=== PATIENT | female | born 1960 | race Caucasian/White ===

== ENCOUNTER → 2017-07-03 13:50 | Outpatient (CLI) | payer OTHER, SELFPAY | PROVIDERS: Family Provider Family Medicine; PCP Family Medicine; Visit Provider Family Medicine | DX: R10.2 Pelvic and perineal pain (principal) | CPT/HCPCS: 87086; 87088 ==

== ENCOUNTER → 2017-08-07 11:23 | Outpatient (CLI) | payer OTHER, SELFPAY ==
[2017-08-07 15:31] LABS: Absolute Neutrophil Count 4.2 X10^3/uL (2.0-7.7); Basophil# 0.03 X10^3/uL; Basophil% 0.4 % (0-1); Eosinophil# 0.19 X10^3/uL; Eosinophils% 2.7 % (0-5); Hematocrit 42.9 % (37-47); Hemoglobin 13.7 g/dl (12.0-15.0); Lymphocyte % 25.9 % (19-41); Mean Corp Hgb Conc 31.9 g/gl (32-36); Mean Corpuscular Hgb 30.7 pg (27.0-32.0); Mean Corpuscular Volume 96.2 fL (81-99); Mean Platelet Vol. 10.4 fl (6.2-12.0); Monocyte# 0.68 X10^3/uL; Monocyte% 9.8 % (0-10); Neutrophil # 4.24 X10^3/uL (2.7-7.7); Neutrophil % 60.9 % (47-70); Platelet Count 228 K/mm3 (150-450); RBC Distribution Width CV 13.4 % (11.6-14.6); RBC Distribution Width SD 45.7 fl (35.1-43.9); Red Blood Count 4.46 M/mm3 (4.2-5.4)
[2017-08-07 15:37] LABS: POSITIVE COUNT NO; POSITIVE DIFFERENTIAL NO; POSITIVE MORPHOLOGY NO
[2017-08-07 15:52] LABS: Microalbumin,Random Urine 7.4 mg/L (NO RANGE EST.); Microalbumin:Creatinine Ratio 7.3 mg/g CRE (<30 mg/g CRE)
[2017-08-07 16:01] LABS: AST(SGOT) 52 U/L (15-37); Alanine Aminotransfer ALT/SGPT 100 U/L (13-56); Albumin, Serum 3.8 g/dL (3.2-5.0); Alkaline Phosphatase 93 U/L (45-117); Anion Gap 9 (5-15); BUN 14 mg/dL (7-18); BUN/Creat Ratio 20.2 RATIO (10-20); Chloride 103 mmol/L (98-107); Cholesterol 205 mg/dL (200); Creatinine, Serum 0.69 mg/dL (0.55-1.02); EST Glomerular Filtration Rate 93 mL/min (>60); Est Glom Filt Rate - Afr Amer 112 mL/min (>60); Globulin 3.9 g/dL (2.2-4.2); Glucose 111 mg/dL (74-106); High Density Lipoprotein 41 mg/dL; Potassium 4.2 mmol/L (3.5-5.1); Protein, Total 7.7 g/dL (6.4-8.2); Sodium Level 141 mmol/L (136-145); T4 Free Direct 0.92 ng/dL (0.76-1.46); Thyroid Stim Hormone (TSH) 1.07 uIU/mL (0.358-3.74); Triglycerides 225 mg/dL; Very Low Density Lipoprotein 45 mg/dL (5-40)
== END ==
PROVIDERS: Family Provider Family Medicine; PCP Family Medicine; Visit Provider Family Medicine
DX: E03.9 Hypothyroidism, unspecified (principal); E78.5 Hyperlipidemia, unspecified; E11.9 Type 2 diabetes mellitus without complications; I10 Essential (primary) hypertension; Z51.81 Encounter for therapeutic drug level monitoring; Z79.899 Other long term (current) drug therapy
CPT/HCPCS: 36415; 80053; 80061; 82043; 82570; 84439; 84443; 84480; 85025

== ENCOUNTER → 2017-10-05 06:56 | Outpatient (CLI) | payer OTHER, SELFPAY ==
--- NOTE | 2017-10-05 06:59 | BI_ITS ---
MAMMOGRAPHY - BILATERAL SCREENING REASON FOR EXAM: Female, 57 years old. Routine annual screening examination. PERTINENT HISTORY: Aunt with breast cancer. TECHNIQUE: Digital bilateral breast nikki (3D mammographic acquisition) in the CC and MLO projections. 2-D mediolateral oblique (MLO) and craniocaudad (CC) views of both breasts were obtained. CAD: Full Field Digital Mammography with Computer Added Detection was performed. COMPARISON: Comparison is made with prior study dated August 08, 2016 and May 12, 2015. FINDINGS: Breast Composition: The breasts are almost entirely fatty. There are no dominant masses or suspicious calcifications. No other significant abnormalities are identified. There has been no significant change since the prior study. BI/SCREENING MAMM (CAD), BILAT IMPRESSION: Stable bilateral screening mammogram. Yearly follow-up mammogram recommended. (A) ASSESSMENT CATEGORY: BIRADS Category 1: Negative. A letter regarding these results will be sent to the patient by the facility within 30 days. Approximately 10% of breast cancers are not detected by mammography. A normal mammogram should not delay biopsy of a clinically suspicious abnormality. [id number] Electronically Signed: Kt Murphy MD at 9:49 EDT Tel [phone], Service support ,
== END ==
PROVIDERS: Family Provider Family Medicine; PCP Family Medicine; Visit Provider Obstetrics & Gynecology Gynecology
DX: Z12.31 Encounter for screening mammogram for malignant neoplasm of breast (principal); Z80.3 Family history of malignant neoplasm of breast
CPT/HCPCS: 77063; 77067

== ENCOUNTER → 2017-12-27 13:30 | Outpatient (CLI) | payer OTHER, SELFPAY ==
--- NOTE | 2017-12-27 13:34 | US_ITS ---
STUDY: ULTRASOUND BREAST - RIGHT REASON FOR EXAM: Female, 57 years old. Palpable lump TECHNIQUE: Axial and longitudinal images of the RIGHT breast were performed with a high resolution ultrasound transducer. COMPARISON: None. FINDINGS: RIGHT Breast: Ultrasound evaluation of the right breast, in the area of concern, shows only normal dense fibroglandular tissue. There is no suspicious shadowing solid lesion, architectural distortion, or shadowing calcification. No demonstrated skin thickening. US/Breast Limited Unilateral IMPRESSION: No suspicious sonographic findings ASSESSMENT CATEGORY: Six-month follow-up recommended to assess stability. BIRADS Category 3 Electronically Signed: David Loya MD at 15:06 EDT , Service support ,
--- NOTE | 2017-12-27 13:34 | BI_ITS ---
STUDY: DIAGNOSTIC RIGHT MAMMOGRAM REASON FOR EXAM: Female, 57 years old. Right upper quadrant breast thickening, palpable lump TECHNIQUE: 2D MLO and cc views along with 3-D nikki synthesis views COMPARISON: 10/05/2017 FINDINGS: No mammographic evidence of abnormality. There is no suspicious solid nodule, architectural distortion or clustered calcifications. Nonetheless, because the patient complains of a palpable lump and skin thickening, ultrasound evaluation of these areas recommended. BI/DIAG MAMM W/CAD, UNILAT IMPRESSION: Further evaluation of the right breast with ultrasound BIRADS Category 0 Electronically Signed: David Loya MD at 15:04 EDT , Service support ,
== END ==
PROVIDERS: Family Provider Family Medicine; PCP Family Medicine
DX: N63.11 Unspecified lump in the right breast, upper outer quadrant (principal)
CPT/HCPCS: 76642; 77061; 77065; G0279

== ENCOUNTER 2018-01-02 09:56 | Inpatient (IN) | payer OTHER, SELFPAY ==
[2018-01-02 09:57] VITALS: BP 147/98; PULSE 80; RESP 16; TEMP 36.5; O2SAT 98; BMI 31.4
--- NOTE | 2018-01-02 10:12 | NURSING ---
NO LW OR POA
--- NOTE | 2018-01-02 10:24 | CT_ITS ---
STUDY: CT ABDOMEN AND PELVIS WITH CONTRAST REASON FOR EXAM: Female, 57 years old. The patient presented with a history of bright red watery stools. RADIATION DOSAGE (If Supplied By Facility): CTDIvol = ( 16.84 ) mGy, DLP = ( 1201.56 ) mGycm TECHNIQUE: Transaxial images were obtained from the dome of the diaphragm to the symphysis pubis with oral contrast. 100 ml of Isovue 300 contrast was administered. Sagittal and coronal images were reconstructed. Individualized dose optimization techniques were used for this CT. COMPARISON: Comparison is made with prior study dated September 14, 2015. FINDINGS: The visualized lung bases are unremarkable. The visualized portions of the heart are within normal limits. Normal liver. There are surgical clips in the gallbladder fossa consistent with a prior cholecystectomy. Normal spleen. Normal pancreas. Normal bilateral adrenal glands. Normal right kidney. Normal left kidney. There is a small hiatal hernia. Normal small intestine. There is evidence of circumferential wall thickening of the left hemicolon from the splenic flexure down to the mid sigmoid colon. This is suggestive of ischemic colitis. Increased stranding in the surrounding peritoneal fat. Moderate amount of fecal material is seen in the right hemicolon. The patient is status post appendectomy. There is diffuse atherosclerotic calcification of the abdominal aorta, without a demonstrated aneurysm. Normal inferior vena cava. Normal retroperitoneum. Normal urinary bladder. There is absence of the uterus consistent with a prior hysterectomy. There is a small umbilical hernia containing fat. There are degenerative changes of the visualized lumbar spine. Findings suggestive of a hemangioma of the L1 vertebrae. CT/Abdomen/Pelvis WITH Contrast IMPRESSION: Findings suggestive of ischemic colitis involving the left hemicolon as described. Electronically Signed: Kt Murphy MD at 12:52 EDT Tel [phone], Service support ,
[2018-01-02] MEDS: 0.9% Normal Saline 1,000 ML 125 ML IV (10:33)
[2018-01-02] MEDS: Morphine 4 MG/ML Syringe IV (10:42)
[2018-01-02] MEDS: Ondansetron 4 MG/2 ML Vial IV (10:43)
[2018-01-02 10:51] LABS: Bacteria 0 SEEN /hpf (None Seen); Mucous, Urine 0 SEEN /hpf (<or=2+); Red Blood Cells-Urine 0 SEEN /hpf (0-5); White Blood Cells 0 SEEN /hpf (0-5)
[2018-01-02 10:56] LABS: Basophil% 0.2 % (0-1); Eosinophils% 1.3 % (0-5); Hematocrit 44.7 % (37-47); Hemoglobin 14.7 g/dl (12.0-15.0); Lymphocyte % 24.3 % (19-41); Mean Corp Hgb Conc 32.9 g/gl (32-36); Mean Corpuscular Hgb 30.7 pg (27.0-32.0); Mean Corpuscular Volume 93.3 fL (81-99); Mean Platelet Vol. 9.6 fl (6.2-12.0); Monocyte% 8.2 % (0-10); Neutrophil % 65.9 % (47-70); Platelet Count 271 K/mm3 (150-450); RBC Distribution Width CV 13.2 % (11.6-14.6); Red Blood Count 4.79 M/mm3 (4.2-5.4); White Blood Count 9.2 K/mm3 (4.4-11.0)
[2018-01-02 10:56] LABS: Color, Urine Yellow (Yellow); Glucose, Dipstick Normal (Normal); Ketone-Dipstick Negative (Negative); Leukocyte Esterase-Dipstick Negative /ul (Negative); Nitrite-Dipstick Negative (Negative); Occult Blood-Urine 10 /ul (Negative); Protein-Dipstick Negative (Negative); Urine Bilirubin Dipstick Negative (Negative); Urine Clarity Clear (Clear); Urine Urobilinogen Normal (Normal); Urine pH 6.5 (5.0 - 8.0)
[2018-01-02 10:57] LABS: Absolute Lymphocyte Count 2.23 X10^3/ul (0.83-4.51); Absolute Neutrophil Count 6.1 X10^3/uL (2.0-7.7); Basophil# 0.02 X10^3/uL; Eosinophil# 0.12 X10^3/uL; Lymphocyte # 2.23 X10^3/ul (4.0); Monocyte# 0.75 X10^3/uL; Neutrophil # 6.06 X10^3/uL (2.7-7.7)
[2018-01-02 10:59] LABS: POSITIVE COUNT NO; POSITIVE DIFFERENTIAL NO; POSITIVE MORPHOLOGY NO
[2018-01-02 11:08] LABS: Squamous Epithelial Cells - UA 0-5 SEEN /hpf (5-10)
[2018-01-02 11:08] LABS: Anion Gap 6 (5-15); BUN 13 mg/dL (7-18); BUN/Creat Ratio 16.3 RATIO (10-20); Calcium,Total 9.5 mg/dL (8.5-10.1); Chloride 106 mmol/L (98-107); EST Glomerular Filtration Rate 79 mL/min (>60); Est Glom Filt Rate - Afr Amer 95 mL/min (>60); Estimated Creatinine Clearance 78.27 ml/min; Glucose 89 mg/dL (74-106); Sodium Level 141 mmol/L (136-145)
[2018-01-02 11:24] LABS: Lactic Acid 1.1 mmol/L (0.4-2.0)
[2018-01-02 14:30] VITALS: BP 123/67; PULSE 67; RESP 16; O2SAT 98
--- NOTE | 2018-01-02 15:11 | ED.VISSUMM ---
- ER Visit Summary Date of Service: 01/02/18 Chief Complaint: [Abdominal pain] History of Present Illness: The patient is a 57 F [presents the emergency department complaint of abdominal pain that started yesterday. Patient initially started with diarrhea that was severe. Patient had the diarrhea turned to blood in her last 3 bowel movements have been mostly blood. Patient describes intermittent abdominal discomfort to the left lower abdomen. Patient states she had severe pain at certain points yesterday lasting up to 5 minutes that cause her to become diaphoretic. Patient denies any fever or recent illness. Patient has a history of diabetes, hypertension, high cholesterol. Past surgical history includes appendectomy, cholecystectomy, and hysterectomy.] Physical Examination: [HEENT-PERRLA, EOMI. Cranial nerves II through XII grossly intact. TMs clear. Mucous membranes moist. No adenopathy. Cardiovascular-regular rate and rhythm without murmur or ectopy Lungs-clear to auscultation, chest wall stable without crepitus or subcu emphysema Abdomen-normoactive bowel sounds, soft patient has tenderness over the left lower quadrant with some guarding. There is no rebound, rigidity, or perineal signs. Extremities-intact ?4, normal range of motion, normal pulses, atraumatic] Test Results: [CBC with differential obtained showed white blood cell count of 9.2, hemoglobin 14.7, hematocrit 45, platelets 271. Chemistries unremarkable. Urinalysis was normal. Lactate was 1.1. CT scan of the abdomen and pelvis with IV and p.o. contrast showed findings suggestive of ischemic colitis of the left hemicolon.] Emergency Department Course and Treatment: [Patient received normal saline while in the emergency department and was medicated for pain. Case was discussed with Dr. Christoph Iqbal who is on-call for general surgery who asked that we admit the medicine he will consult on the case.] Treatment Plan: [Admit] Disposition: [Admit] Impression: [Abdominal pain Ischemic colitis] This note was generated with [employer] dictation software. It may contain incorrect words, spelling, and punctuation that were not noted in review of the chart prior to signing ED Disposition - Plan for ED Patient: Chief Complaint: GI Bleed Referrals: Inez Jack DO [Primary Care Provider] -
[2018-01-02 15:17] VITALS: PULSE 82; RESP 16; O2SAT 100
--- NOTE | 2018-01-02 15:40 | PCM.HP.STD ---
Problem List (1) Acute colitis of the left hemicolon Status: Acute (2) Hypothyroidism Status: Chronic (3) Hyperlipidemia Status: Chronic (4) Type 2 diabetes mellitus Status: Chronic (5) Hypertension Status: Chronic History of Present Illness Date of Admission: 01/02/18 Chief Complaint: Abdominal pain. The patient is a 57 year old F with past medical history as mentioned above presented to the emergency room because of abdominal pain. Her illness started yesterday evening with left lower quadrant/left lumbar region abdominal pain, intermittent pain, sharp pain, 10 out of 10 in severity, not radiating, associated with blood per rectum, nausea and sweating and without aggravating or relieving factors. After couple of episodes of that intermittent pain, patient had couple of episodes of loose stool with bright red blood patient described as small to moderate amount of denis red blood. She denied fever or chills. She denied sick contacts or recent travel. She denied recent use of antibiotics. She denied chest pain or shortness of breath. She denies urinary symptoms. She denies cough or sputum production. In the emergency room, her vital signs are stable. Routine blood work was completely normal. Lactic acid was normal. Urinalysis showed no evidence of acute cystitis. CT scan abdomen and pelvis with contrast revealed findings suggestive of acute colitis of the left hemicolon, described as ischemic colitis. She is being admitted for acute colitis of the left hemicolon. Past Medical History Past Medical History (Chronic Problems): Chronic Problems Hypothyroidism (Chronic) Hyperlipidemia (Chronic) Type 2 diabetes mellitus (Chronic) Hypertension (Chronic) Allergies No Known Allergies Allergy (Verified 01/02/18 10:04) Home Medications: Ambulatory Orders Medication Instructions Recorded Ascorbic Acid [Vitamin C] 1,000 mg PO DAILY 01/02/18 Aspirin [Aspirin, Baby] 81 mg PO DAILY@0800 01/02/18 Cholecalciferol (Vitamin D3) 3,000 unit PO DAILY 01/02/18 [Vitamin D3] Fluticasone Propionate [24 Hour 15.8 ml NS DAILY 01/02/18 Allergy Relief] Garlic 1,000 mg PO DAILY 01/02/18 Lactobac No.30/Bifidobact No.4 1 each PO DAILY 01/02/18 [Ultimate Juliet Probiotic Dr Cp] Levothyroxine [Synthroid] 75 mcg PO DAILY 01/02/18 Liraglutide [Victoza] 1.8 mg SQ DAILY 01/02/18 Lisinopril [Zestril] 10 mg PO DAILY 01/02/18 Magnesium Oxide [Mag-Ox 400] 400 mg PO DAILY 01/02/18 Niacin [Niacin ER] 500 mg PO DAILY 01/02/18 Pravastatin [Pravachol] 80 mg PO DAILY 01/02/18 Vitamin B Complex/Folic Acid 0.4 mg PO DAILY 01/02/18 [Super B Maxi Complex Caplet] buPROPion XL [Wellbutrin Xl] 300 mg PO DAILY 01/02/18 Surgical History: appendectomy, cholecystectomy, hysterectomy, tonsillectomy Psychiatric History: No pertinent psych hx [employer] History: No pertinent [employer] history Lives: Spouse/ Significant Other Smoking Status: Never smoker Alcohol: None Drugs: None - *Family History Maternal History Items: No pertinent history Paternal History Items: No pertinent history Review of Systems Constitutional: Denies: Anorexia, Chills, Fever, Weakness Eyes: Denies: Blurred vision, Double vision, Drainage, Redness HEENT: Denies: Difficulty Hearing, Ear Pain, Eye Pain, Nasal Congestion, Sore Throat, Visual Changes Cardiovascular: Denies: Chest Pain, Chest Pressure, Chest Tightness, Orthopnea, Paroxysmal Noc. Dyspnea, Syncope Respiratory: Denies: Cough, Pleuritic Pain, Shortness of Breath, Sputum production, Wheezing Gastrointestinal: Reports: Abdominal Pain, Hematochezia, Nausea. Denies: Constipation, Diarrhea, Vomiting Genitourinary: Denies: Dysuria, Frequency, Hematuria Musculoskeletal: Denies: Arm Pain, Back Pain, Foot Pain Skin: Denies: Dryness, Rash Neurological: Denies: Balance problems, Double vision, Change in Speech, Slurred speech, Confusion, Incoordination, Numbness, Tingling Psychiatric: Denies: Anxiety, Depression Endocrine: Denies: Change in Body Habitus, Polydipsia VTE Information - Inpt Only VTE Present on Admission: No VTE Mechan Device Prophylaxis: None VTE Pharm Prophylaxis ordered?: No Patient Problems: Active and Suspected Problems Acute colitis of the left hemicolon (Acute) - Physical Exam General: Alert, Oriented x3, Cooperative, No apparent distress HEENT: Atraumatic, PERRLA, EOMI, Normocephalic Oral: Moist Mucosa, No Gingival or Mucosal Lesions/ Ulcerations Neck: Supple, No JVD, Negative Carotid Bruits, Trachea Midline, Thyroid Normal Size and Texture Lungs: Clear to auscultation, Normal air movement, No rhonchi, No wheeze, No rales Cardiovascular: Regular rate, Regular Rhythm, Normal S1, Normal S2, No murmurs, PMI Normal Abdomen: Bowel Sounds Present, Soft, Non Tender, Non-Distended, No Hepato-splenomegaly Extremities: No clubbing, No cyanosis, No edema Skin: No rashes, No breakdown Lymphatic: No Cervical, Supraclavicular, or Inguinal Adenopathy Neurological: Cranial nerves II-XII grossly intact, Motor Exam 5/5 strength throughout Psych/Mental Status: Normal Affect, Appropriate, Alert and oriented to time, place, person, mood and affect Vital Signs Temp Pulse Resp BP Pulse Ox 97.7 F L 82 16 123/67 H 100 01/02/18 09:57 01/02/18 15:17 01/02/18 15:17 01/02/18 14:30 01/02/18 15:17 Oxygen Delivery Method Room Air Weight: 207 lb Body Mass Index (BMI) 31.4 Laboratory Tests Past 24 Hrs 01/02/18 01/02/18 01/02/18 10:10 10:40 10:40 WBC 9.2 RBC 4.79 Hgb 14.7 Hct 44.7 MCV 93.3 MCH 30.7 MCHC 32.9 RDW 13.2 RDW Differential 44.0 H Plt Count 271 MPV 9.6 Immature Gran % (Auto) 0.100 Neut % (Auto) 65.9 Lymph % (Auto) 24.3 [place] % (Auto) 8.2 Eos % (Auto) 1.3 Baso % (Auto) 0.2 Absolute Neuts (auto) 6.1 Absolute Lymphs (auto) 2.23 Total Counted Not Reportable Sodium 141 Potassium 4.0 Chloride 106 Carbon Dioxide 29.0 Anion Gap 6 BUN 13 Creatinine 0.80 Estim Creat Clear Calc 78.27 Est GFR (MDRD) Af Amer 95 Est GFR (MDRD) Non-Af 79 BUN/Creatinine Ratio 16.3 Glucose 89 Lactic Acid Calcium 9.5 Urine Color Yellow Urine Clarity Clear Urine pH 6.5 Ur Specific [place] 1.010 Urine Protein Negative Urine Glucose (UA) Normal Urine Ketones Negative Urine Occult Blood 10 H Urine Nitrite Negative Urine Bilirubin Negative Urine Urobilinogen Normal Ur Leukocyte Esterase Negative Urine RBC 0 SEEN Urine WBC 0 SEEN Ur Squamous Epith Cells 0-5 SEEN Urine Bacteria 0 SEEN Urine Mucus 0 SEEN 01/02/18 10:40 WBC RBC Hgb Hct MCV MCH MCHC RDW RDW Differential Plt Count MPV Immature Gran % (Auto) Neut % (Auto) Lymph % (Auto) [place] % (Auto) Eos % (Auto) Baso % (Auto) Absolute Neuts (auto) Absolute Lymphs (auto) Total Counted Sodium Potassium Chloride Carbon Dioxide Anion Gap BUN Creatinine Estim Creat Clear Calc Est GFR (MDRD) Af Amer Est GFR (MDRD) Non-Af BUN/Creatinine Ratio Glucose Lactic Acid 1.1 Calcium Urine Color Urine Clarity Urine pH Ur Specific [place] Urine Protein Urine Glucose (UA) Urine Ketones Urine Occult Blood Urine Nitrite Urine Bilirubin Urine Urobilinogen Ur Leukocyte Esterase Urine RBC Urine WBC Ur Squamous Epith Cells Urine Bacteria Urine Mucus Clinical Impression(s) from Imaging Studies Abdomen/Pelvis CT 01/02/18 10:24 IMPRESSION: Findings suggestive of ischemic colitis involving the left hemicolon as described. Electronically Signed: Kt Murphy MD at 12:52 EDT Tel [phone], Service support , Assessment/Plan All Active Problems Acute colitis of the left hemicolon (Acute) This is a 57-year-old female patient presented to the ED because of left lower quadrant abdominal pain and bloody stool, found to have findings consistent with acute colitis of the left hemicolon and she is being admitted for treatment. #1 acute colitis of the left hemicolon: CT scan abdomen and pelvis reviewed, findings noted. It is described as ischemic colitis according to radiology report. Patient is afebrile, vital signs are stable. Routine blood work was unremarkable, no leukocytosis. Lactic acid is normal. The location of the colitis is corresponding to the watershed area which is vulnerable to ischemia. She has no history of peripheral vascular disease or coronary artery disease. Plan: Admit to MedSurg floor, keep on clear liquids, IV fluids, IV morphine as needed for pain, IV antiemetics, stool for C. difficile, stool for enteric pathogens, repeat CBC and CMP tomorrow morning, general surgery consult. #2 type 2 diabetes mellitus: ADA diet, Accu-Cheks, insulin sliding scale, continue daily Victoza. #3 hypertension: Blood pressure stable, continue lisinopril. #4 hypothyroidism: Continue levothyroxine. #5 hyperlipidemia: Continue statins. #6 DVT prophylaxis: Low suspicion, no prophylaxis indicated, ambulate. This note was generated with [employer]ome [id number] software. It may contain incorrect words, spelling, and punctuation that were not noted in checking the note before signing. Code Visit Inpatient E&M: 51692 Init Hosp L3
--- NOTE | 2018-01-02 15:44 | HP.PCM_ITS ---
Problem List (1) Acute colitis of the left hemicolon Status: Acute (2) Hypothyroidism Status: Chronic (3) Hyperlipidemia Status: Chronic (4) Type 2 diabetes mellitus Status: Chronic (5) Hypertension Status: Chronic History of Present Illness Date of Admission: 01/02/18 Chief Complaint: Abdominal pain. The patient is a 57 year old F with past medical history as mentioned above presented to the emergency room because of abdominal pain. Her illness started yesterday evening with left lower quadrant/left lumbar region abdominal pain, intermittent pain, sharp pain, 10 out of 10 in severity, not radiating, associated with blood per rectum, nausea and sweating and without aggravating or relieving factors. After couple of episodes of that intermittent pain, patient had couple of episodes of loose stool with bright red blood patient described as small to moderate amount of denis red blood. She denied fever or chills. She denied sick contacts or recent travel. She denied recent use of antibiotics. She denied chest pain or shortness of breath. She denies urinary symptoms. She denies cough or sputum production. In the emergency room, her vital signs are stable. Routine blood work was completely normal. Lactic acid was normal. Urinalysis showed no evidence of acute cystitis. CT scan abdomen and pelvis with contrast revealed findings suggestive of acute colitis of the left hemicolon, described as ischemic colitis. She is being admitted for acute colitis of the left hemicolon. Past Medical History Past Medical History (Chronic Problems): Chronic Problems Hypothyroidism (Chronic) Hyperlipidemia (Chronic) Type 2 diabetes mellitus (Chronic) Hypertension (Chronic) Allergies No Known Allergies Allergy (Verified 01/02/18 10:04) Home Medications: Ambulatory Orders Medication Instructions Recorded Ascorbic Acid [Vitamin C] 1,000 mg PO DAILY 01/02/18 Aspirin [Aspirin, Baby] 81 mg PO DAILY@0800 01/02/18 Cholecalciferol (Vitamin D3) 3,000 unit PO DAILY 01/02/18 [Vitamin D3] Fluticasone Propionate [24 Hour 15.8 ml NS DAILY 01/02/18 Allergy Relief] Garlic 1,000 mg PO DAILY 01/02/18 Lactobac No.30/Bifidobact No.4 1 each PO DAILY 01/02/18 [Ultimate Juliet Probiotic Dr Cp] Levothyroxine [Synthroid] 75 mcg PO DAILY 01/02/18 Liraglutide [Victoza] 1.8 mg SQ DAILY 01/02/18 Lisinopril [Zestril] 10 mg PO DAILY 01/02/18 Magnesium Oxide [Mag-Ox 400] 400 mg PO DAILY 01/02/18 Niacin [Niacin ER] 500 mg PO DAILY 01/02/18 Pravastatin [Pravachol] 80 mg PO DAILY 01/02/18 Vitamin B Complex/Folic Acid 0.4 mg PO DAILY 01/02/18 [Super B Maxi Complex Caplet] buPROPion XL [Wellbutrin Xl] 300 mg PO DAILY 01/02/18 Surgical History: appendectomy, cholecystectomy, hysterectomy, tonsillectomy Psychiatric History: No pertinent psych hx 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 Dyspnea, Syncope Respiratory: Denies: Cough, Pleuritic Pain, Shortness of Breath, Sputum production, Wheezing Gastrointestinal: Reports: Abdominal Pain, Hematochezia, Nausea. Denies: Constipation, Diarrhea, Vomiting Genitourinary: Denies: Dysuria, Frequency, Hematuria Musculoskeletal: Denies: Arm Pain, Back Pain, Foot Pain Skin: Denies: Dryness, Rash Neurological: Denies: Balance problems, Double vision, Change in Speech, Slurred speech, Confusion, Incoordination, Numbness, Tingling Psychiatric: Denies: Anxiety, Depression Endocrine: Denies: Change in Body Habitus, Polydipsia VTE Information - Inpt Only VTE Present on Admission: No VTE Mechan Device Prophylaxis: None VTE Pharm Prophylaxis ordered?: No Patient Problems: Active and Suspected Problems Acute colitis of the left hemicolon (Acute) - Physical Exam General: Alert, Oriented x3, Cooperative, No apparent distress HEENT: Atraumatic, PERRLA, EOMI, Normocephalic Oral: Moist Mucosa, No Gingival or Mucosal Lesions/ Ulcerations Neck: Supple, No JVD, Negative Carotid Bruits, Trachea Midline, Thyroid Normal Size and Texture Lungs: Clear to auscultation, Normal air movement, No rhonchi, No wheeze, No rales Cardiovascular: Regular rate, Regular Rhythm, Normal S1, Normal S2, No murmurs, PMI Normal Abdomen: Bowel Sounds Present, Soft, Non Tender, Non-Distended, No Hepato- splenomegaly Extremities: No clubbing, No cyanosis, No edema Skin: No rashes, No breakdown Lymphatic: No Cervical, Supraclavicular, or Inguinal Adenopathy Neurological: Cranial nerves II-XII grossly intact, Motor Exam 5/5 strength throughout Psych/Mental Status: Normal Affect, Appropriate, Alert and oriented to time, place, person, mood and affect Vital Signs Temp Pulse Resp BP Pulse Ox 97.7 F L 82 16 123/67 H 100 01/02/18 09:57 01/02/18 15:17 01/02/18 15:17 01/02/18 14:30 01/02/18 15:17 Oxygen Delivery Method Room Air Weight: 207 lb Body Mass Index (BMI) 31.4 Laboratory Tests Past 24 Hrs 01/02/18 01/02/18 01/02/18 10:10 10:40 10:40 WBC 9.2 RBC 4.79 Hgb 14.7 Hct 44.7 MCV 93.3 MCH 30.7 MCHC 32.9 RDW 13.2 RDW Differential 44.0 H Plt Count 271 MPV 9.6 Immature Gran % (Auto) 0.100 Neut % (Auto) 65.9 Lymph % (Auto) 24.3 [place] % (Auto) 8.2 Eos % (Auto) 1.3 Baso % (Auto) 0.2 Absolute Neuts (auto) 6.1 Absolute Lymphs (auto) 2.23 Total Counted Not Reportable Sodium 141 Potassium 4.0 Chloride 106 Carbon Dioxide 29.0 Anion Gap 6 BUN 13 Creatinine 0.80 Estim Creat Clear Calc 78.27 Est GFR (MDRD) Af Amer 95 Est GFR (MDRD) Non-Af 79 BUN/Creatinine Ratio 16.3 Glucose 89 Lactic Acid Calcium 9.5 Urine Color Yellow Urine Clarity Clear Urine pH 6.5 Ur Specific [place] 1.010 Urine Protein Negative Urine Glucose (UA) Normal Urine Ketones Negative Urine Occult Blood 10 H Urine Nitrite Negative Urine Bilirubin Negative Urine Urobilinogen Normal Ur Leukocyte Esterase Negative Urine RBC 0 SEEN Urine WBC 0 SEEN Ur Squamous Epith Cells 0-5 SEEN Urine Bacteria 0 SEEN Urine Mucus 0 SEEN 01/02/18 10:40 WBC RBC Hgb Hct MCV MCH MCHC RDW RDW Differential Plt Count MPV Immature Gran % (Auto) Neut % (Auto) Lymph % (Auto) [place] % (Auto) Eos % (Auto) Baso % (Auto) Absolute Neuts (auto) Absolute Lymphs (auto) Total Counted Sodium Potassium Chloride Carbon Dioxide Anion Gap BUN Creatinine Estim Creat Clear Calc Est GFR (MDRD) Af Amer Est GFR (MDRD) Non-Af BUN/Creatinine Ratio Glucose Lactic Acid 1.1 Calcium Urine Color Urine Clarity Urine pH Ur Specific [place] Urine Protein Urine Glucose (UA) Urine Ketones Urine Occult Blood Urine Nitrite Urine Bilirubin Urine Urobilinogen Ur Leukocyte Esterase Urine RBC Urine WBC Ur Squamous Epith Cells Urine Bacteria Urine Mucus Clinical Impression(s) from Imaging Studies Abdomen/Pelvis CT 01/02/18 10:24 IMPRESSION: Findings suggestive of ischemic colitis involving the left hemicolon as described. Electronically Signed: Kt Murphy MD at 12:52 EDT Tel [phone], Service support , Assessment/Plan All Active Problems Acute colitis of the left hemicolon (Acute) This is a 57-year-old female patient presented to the ED because of left lower quadrant abdominal pain and bloody stool, found to have findings consistent with acute colitis of the left hemicolon and she is being admitted for treatment. #1 acute colitis of the left hemicolon: CT scan abdomen and pelvis reviewed, findings noted. It is described as ischemic colitis according to radiology report. Patient is afebrile, vital signs are stable. Routine blood work was unremarkable, no leukocytosis. Lactic acid is normal. The location of the colitis is corresponding to the watershed area which is vulnerable to ischemia. She has no history of peripheral vascular disease or coronary artery disease. Plan: Admit to MedSurg floor, keep on clear liquids, IV fluids, IV morphine as needed for pain, IV antiemetics, stool for C. difficile, stool for enteric pathogens, repeat CBC and CMP tomorrow morning, general surgery consult. #2 type 2 diabetes mellitus: ADA diet, Accu-Cheks, insulin sliding scale, continue daily Victoza. #3 hypertension: Blood pressure stable, continue lisinopril. #4 hypothyroidism: Continue levothyroxine. #5 hyperlipidemia: Continue statins. #6 DVT prophylaxis: Low suspicion, no prophylaxis indicated, ambulate. This note was generated with uControlation software. It may contain incorrect words, spelling, and punctuation that were not noted in checking the note before signing. Code Visit Inpatient E&M: 98913 Init Hosp L3
--- NOTE | 2018-01-02 15:54 | PCM.CONS.GEN ---
<Christoph Iqbal - Last Filed: 01/02/18 18:06> Reason for Consult History of Present Illness: The patient is a 57 year old F [] Past Medical History Past Medical History (Chronic Problems): Chronic Problems Hypothyroidism (Chronic) Hyperlipidemia (Chronic) Type 2 diabetes mellitus (Chronic) Hypertension (Chronic) Allergies No Known Allergies Allergy (Verified 01/02/18 10:04) Home Medications: Ambulatory Orders Medication Instructions Recorded Ascorbic Acid [Vitamin C] 1,000 mg PO QHS 01/02/18 Aspirin [Aspirin, Baby] 81 mg PO QHS 01/02/18 Cholecalciferol (Vitamin D3) 3,000 unit PO QHS 01/02/18 [Vitamin D3] Doxycycline Monohydrate 40 mg PO DAILY 01/02/18 [Doxycycline Ir-Dr] Fluticasone Propionate [24 Hour 1 spray NS QHS 01/02/18 Allergy Relief] Garlic 1,000 mg PO QHS 01/02/18 Lactobac No.30/Bifidobact No.4 1 each PO QHS 01/02/18 [Ultimate Juliet Probiotic Dr Cp] Levothyroxine [Synthroid] 75 mcg PO DAILY 01/02/18 Liraglutide [Victoza] 1.8 mg SQ DAILY 01/02/18 Lisinopril [Zestril] 10 mg PO QHS 01/02/18 Magnesium Oxide [Mag-Ox 400] 400 mg PO QHS 01/02/18 Niacin [Niacin ER] 500 mg PO QHS 01/02/18 Pravastatin [Pravachol] 80 mg PO QHS 01/02/18 Vitamin B Complex/Folic Acid 0.4 mg PO QHS 01/02/18 [Super B Maxi Complex Caplet] buPROPion XL [Wellbutrin Xl] 300 mg PO DAILY 01/02/18 Patient Problems: Active and Suspected Problems Acute colitis of the left hemicolon (Acute) - Physical Exam Vital Signs Temp Pulse Resp BP Pulse Ox 98.0 F 78 18 135/80 H 100 01/02/18 16:26 01/02/18 16:26 01/02/18 16:26 01/02/18 16:26 01/02/18 15:17 Oxygen Delivery Method Room Air Weight: 207 lb Body Mass Index (BMI) 31.4 POC Glucose 01/02/18 16:55 POC Glucose 93 Assessment/Plan All Active Problems Acute colitis of the left hemicolon (Acute) I have completely reviewed this patient's history and physical. The findings are as dictated above. Her pertinent surgical history is that she has had tonsillectomy and adenoidectomy. She had abdominal hysterectomy which included an incidental appendectomy. She has had a anal sphincterotomy with a redo procedure to treat nonhealing wound. Laparoscopic cholecystectomy. She has had right lower extremity great saphenous vein ablation. The the patient additionally stated that she did not bring to mind that she is on doxycycline daily and has been so since May 2017 for rosacea. She takes that on a daily basis. She is otherwise not been exposed to C. difficile colitis. She has had a intentional 41 pound weight loss over the past several months. She has been trying to better control her diabetes. This episode is her third separate episode of severe left lower quadrant abdominal pain cramping and intermittent bloody diarrhea. She states that she was more ill yesterday with cold sweats and near syncope diarrhea and 3 episodes yesterday overnight of passing blood per rectum. She states that since this morning however she has not had any bowel movements. She does not personally has a history of colon polyps or colon cancer. She has not personally had a history of C. difficile colitis. She states that at least a couple years ago after similar episode that Dr. Hayden Alston had performed a colonoscopy. The patient was not made aware of any findings at that time. I specifically questioned the patient as to whether she was told whether she had any diverticulosis and she is not aware nor is her . The patient does not appear to be in acute distress. She is alert awake and talkative. On her physical examination her abdomen is soft very slightly distended; bowels are present but slightly diminished. She is mildly tender to palpation of the left lower quadrant. Some slight guarding. I do not detect a mass. exam no gross inguinal defects. Rectal exam previously performed in the emergency room. The remainder of her clinical physical exam was not remarkable. She does have some evidence of mild venous stasis changes of her bilateral lower extremities but her calves are supple nontender. Of additional synovitis patient complains of a cystic area in the right lateral hip buttock area. She does have an area of induration measuring about 2.5 x 2.5 cm which is not fluctuant. She states that this area comes and goes. Impression I have reviewed her CT scan suggesting colonic wall thickening of the splenic flexure and descending colon to the mid sigmoid. Etiology is not clear. The patient does not appear to have an acute surgical abdomen at this time. As the patient has not had further diarrhea C. difficile colitis is less likely. I think it not unreasonable to hold her aspirin while she is reporting rectal bleeding. I will initiate metronidazole. The right lateral hip focal area of cellulitis. I do not detect a distinct skin pore suggesting an infected sebaceous cyst etiology not completely clear. Observation would seem reasonable at this point. If the area progresses then I would recommend incision and drainage. I will not place the patient for a bowel prep tonight. We will reassess if she is improved by tomorrow then consideration of short-term follow-up with outpatient colonoscopy would not be unreasonable. If the patient has recurrent significant rectal bleeding then I would pursue a colonoscopy in a more urgent fashion. I very much appreciate the kind opportunity of assisting with her surgical care. Christoph Iqbal M.D., F.A.C.S. <Adelina Henriquez - Last Filed: 01/03/18 07:18> Problem List (1) Acute colitis of the left hemicolon Status: Acute Reason for Consult Date of Consultation: 01/02/18 Reason for Consultation: Abdominal pain. Diarrhea. Bright red blood per rectum History of Present Illness: The patient is a 57 year old F who presents with a 1 day history of abdominal pain, diarrhea, and bright red blood per rectum. Patient notes around noon yesterday at work, she developed severe abdominal pain, bright red blood per rectum, diarrhea, and nausea. Patient noted this lasted the remaining of her work shift. Once she was at home, her abdominal pain was reduced to cramping. She also became lightheaded, diaphoretic, with rapid racing heart. She noted this lasted until she tried to use the bathroom the second time. She noted at that time she had diarrhea with bright red blood. She noted diarrhea was only liquid, no solid stool was noted. Patient stated she had a similar episode of abdominal cramping and diarrhea approximately 2-3 years ago. She noted the abdominal pain was not as severe. She noted the CT scan at that time demonstrated inflammation of the colon, however no ischemic colitis was noted. Patient stated she was given Bentyl and was recommended to follow-up with Dr. Alston for a colonoscopy. Patient noted she had a colonoscopy at that time which she notes was normal. She noted her last bowel movement was this morning 2 times. Patient states she works at [employer]. 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 Patient noted their symptoms were diarrhea and cramping only. Patient denies previous myocardial infarction, stroke, blood clots. She noted seeing a public relations account supervisor approximately 5-10 years ago for an extra heart beat. She had a Holter monitor at that time which demonstrated PVC's. She does not smoke. She is a former smoker. She takes a daily 81 mg aspirin. Previous abdominal surgeries include total hysterectomy, appendectomy, and cholecystectomy. Patient has had a previous hemorrhoidectomy and anal fistulotomy with Dr. Cardona in 2010. Patient had a brief follow-up visit with Dr. Iqbal for possible infection from this surgery in early 2010. She denies family history of colon cancer. CT scan demonstrates circumferential wall thickening of the left hemicolon from the splenic flexure to the mid sigmoid colon. Suggestive of ischemic colitis. Moderate amount of fecal material in the right colon. 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 Denies: Fever HEENT: Denies: Head Aches, Sinus Congestion, Sinus Drainage Cardiovascular: Denies: Chest Pain, Palpitations Respiratory: Denies: Cough, Shortness of breath at rest, Sputum production Gastrointestinal: Reports: Abdominal Pain, Diarrhea, Hematochezia, Nausea Genitourinary: Denies: Dysuria Musculoskeletal: Denies: Joint Pain, Joint Tenderness Skin: Denies: Rash, Wounds Neurological: Denies: Numbness, Tingling, Focal weakness Psychiatric: Denies: Anxiety, Depression, Homicidal Ideations, Suicidal Ideations Hematologic/ Lymphatic: Denies: Easy Bruising, Easy Bleeding - Physical Exam General: Alert, Oriented x3, Cooperative HEENT: Atraumatic, PERRLA, EOMI, Normocephalic Neck: Supple, No JVD, Negative Carotid Bruits Lungs: Clear to auscultation, Normal air movement Cardiovascular: Regular rate, No murmurs Abdomen: Soft, Hypoactive Bowel Sounds, Tender - Left lower quadrant Extremities: No edema, Capillary Refill Less than 3 Seconds Skin: No rashes, No breakdown Musculoskeletal: No Tenderness to Palpation of Joints or Extremities Neurological: Cranial nerves II-XII grossly intact Psych/Mental Status: Normal Affect, Appropriate Vital Signs Temp Pulse Resp BP Pulse Ox 97.7 F L 82 16 123/67 H 100 01/02/18 09:57 01/02/18 15:17 01/02/18 15:17 01/02/18 14:30 01/02/18 15:17 Oxygen Delivery Method Room Air Weight: 207 lb Body Mass Index (BMI) 31.4 Laboratory Tests Past 24 Hrs 01/02/18 01/02/18 01/02/18 10:10 10:40 10:40 WBC 9.2 RBC 4.79 Hgb 14.7 Hct 44.7 MCV 93.3 MCH 30.7 MCHC 32.9 RDW 13.2 RDW Differential 44.0 H Plt Count 271 MPV 9.6 Immature Gran % (Auto) 0.100 Neut % (Auto) 65.9 Lymph % (Auto) 24.3 [place] % (Auto) 8.2 Eos % (Auto) 1.3 Baso % (Auto) 0.2 Absolute Neuts (auto) 6.1 Absolute Lymphs (auto) 2.23 Total Counted Not Reportable Sodium 141 Potassium 4.0 Chloride 106 Carbon Dioxide 29.0 Anion Gap 6 BUN 13 Creatinine 0.80 Estim Creat Clear Calc 78.27 Est GFR (MDRD) Af Amer 95 Est GFR (MDRD) Non-Af 79 BUN/Creatinine Ratio 16.3 Glucose 89 Lactic Acid Calcium 9.5 Urine Color Yellow Urine Clarity Clear Urine pH 6.5 Ur Specific [place] 1.010 Urine Protein Negative Urine Glucose (UA) Normal Urine Ketones Negative Urine Occult Blood 10 H Urine Nitrite Negative Urine Bilirubin Negative Urine Urobilinogen Normal Ur Leukocyte Esterase Negative Urine RBC 0 SEEN Urine WBC 0 SEEN Ur Squamous Epith Cells 0-5 SEEN Urine Bacteria 0 SEEN Urine Mucus 0 SEEN 01/02/18 10:40 WBC RBC Hgb Hct MCV MCH MCHC RDW RDW Differential Plt Count MPV Immature Gran % (Auto) Neut % (Auto) Lymph % (Auto) [place] % (Auto) Eos % (Auto) Baso % (Auto) Absolute Neuts (auto) Absolute Lymphs (auto) Total Counted Sodium Potassium Chloride Carbon Dioxide Anion Gap BUN Creatinine Estim Creat Clear Calc Est GFR (MDRD) Af Amer Est GFR (MDRD) Non-Af BUN/Creatinine Ratio Glucose Lactic Acid 1.1 Calcium Urine Color Urine Clarity Urine pH Ur Specific [place] Urine Protein Urine Glucose (UA) Urine Ketones Urine Occult Blood Urine Nitrite Urine Bilirubin Urine Urobilinogen Ur Leukocyte Esterase Urine RBC Urine WBC Ur Squamous Epith Cells Urine Bacteria Urine Mucus Assessment/Plan I have been consulted in conjunction with Dr. Iqbal Impression: Abdominal pain. Diarrhea. Bright red blood per rectum Plan: Patient discussed with Dr. Iqbal. Patient does not appear to have an acute abdomen. Admit patient. Initiate IV Flagyl. No surgical intervention is being recommended at this time. Patient has had the opportunity to ask and have questions answered. Patient verbally understands and agrees with the plan. Thank you for allowing me to participate in this patient's care. My recommendations will be available via electronic medical records. Code Visit Office Visits / Consults: [id number] IP Consult L3
[2018-01-02 16:23] VITALS: BMI 31.4
[2018-01-02 16:26] VITALS: BP 135/80; PULSE 78; RESP 18; TEMP 36.7
[2018-01-02 16:39] VITALS: BMI 31.5
[2018-01-02 17:01] LABS: Bedside Glucose 93 mg/dL (70-110)
[2018-01-02] MEDS: 0.9% Normal Saline 1,000 ML 100 ML IV (17:09)
[2018-01-02] MEDS: Morphine 2 MG/ML Syringe IV (17:14)
[2018-01-02 19:45] VITALS: O2SAT 95
[2018-01-02 20:32] VITALS: BP 116/62; PULSE 68; RESP 16; TEMP 37.1; O2SAT 100
[2018-01-02] MEDS: Pravastatin 80 MG Tablet PO (22:24)
[2018-01-02 23:10] LABS: Bedside Glucose 89 mg/dL (70-110)
[2018-01-03 01:56] LABS: Bedside Glucose 95 mg/dL (70-110)
[2018-01-03 02:00] VITALS: BP 100/55; PULSE 68; RESP 16; TEMP 37.2; O2SAT 96
[2018-01-03] MEDS: Acetaminophen 325 MG Tablet 650 MG PO ×2 (02:49→09:40)
[2018-01-03] MEDS: 0.9% Normal Saline 1,000 ML 100 ML IV ×2 (02:51→12:28)
[2018-01-03] MEDS: Levothyroxine 75 MCG Tablet PO (06:07)
[2018-01-03 06:10] LABS: Absolute Lymphocyte Count 1.84 X10^3/ul (0.83-4.51); Absolute Neutrophil Count 3.6 X10^3/uL (2.0-7.7); Basophil# 0.03 X10^3/uL; Basophil% 0.5 % (0-1); Eosinophil# 0.22 X10^3/uL; Eosinophils% 3.5 % (0-5); Hematocrit 39.5 % (37-47); Hemoglobin 12.6 g/dl (12.0-15.0); Lymphocyte # 1.84 X10^3/ul (4.0); Lymphocyte % 29.5 % (19-41); Mean Corp Hgb Conc 31.9 g/gl (32-36); Mean Corpuscular Hgb 30.4 pg (27.0-32.0); Mean Corpuscular Volume 95.4 fL (81-99); Mean Platelet Vol. 9.7 fl (6.2-12.0); Monocyte# 0.59 X10^3/uL; Monocyte% 9.5 % (0-10); Neutrophil # 3.56 X10^3/uL (2.7-7.7); Platelet Count 196 K/mm3 (150-450); RBC Distribution Width CV 13.4 % (11.6-14.6); RBC Distribution Width SD 46.9 fl (35.1-43.9); Red Blood Count 4.14 M/mm3 (4.2-5.4); White Blood Count 6.2 K/mm3 (4.4-11.0)
--- NOTE | 2018-01-03 06:10 | PCM.PN.SRG ---
Patient Problems: Active and Suspected Problems Acute colitis of the left hemicolon (Acute) Subjective: Pt has had flatus, no further stool or blood. Pain has essentially resolved - Physical Exam General: Alert, Oriented x3, Cooperative, No apparent distress Abdomen: Bowel Sounds Present, Soft, Non Tender, Hypoactive Bowel Sounds, Distended Vital Signs Temp Pulse Resp BP Pulse Ox 98.9 F 68 16 100/55 L 96 01/03/18 02:00 01/03/18 02:00 01/03/18 02:00 01/03/18 02:00 01/03/18 02:00 Oxygen Delivery Method Room Air Weight: 207 lb Body Mass Index (BMI) 31.4 Intake and Output for Last 24 Hours 01/01/18 01/02/18 01/03/18 23:59 23:59 23:59 Intake Total 1000 / 1000 Output Total 500 / 500 Balance 500 / 500 Laboratory Tests Past 24 Hrs 01/03/18 01/03/18 05:08 05:08 WBC Pending RBC Pending Hgb Pending Hct Pending MCV Pending MCH Pending MCHC Pending RDW Pending RDW Differential Pending Plt Count Pending Neut % (Auto) Pending Absolute Neuts (auto) Pending Total Counted Pending Sodium Pending Potassium Pending Chloride Pending Carbon Dioxide Pending Anion Gap Pending BUN Pending Creatinine Pending Est GFR (MDRD) Af Amer Pending Est GFR (MDRD) Non-Af Pending BUN/Creatinine Ratio Pending Glucose Pending Calcium Pending Total Bilirubin Pending AST Pending ALT Pending Alkaline Phosphatase Pending Total Protein Pending Albumin Pending POC Glucose 01/03/18 01/02/18 01/02/18 01:51 22:19 16:55 POC Glucose 95 89 93 Medical Necessity - Tobacco Use Smoking Status: Former smoker Tobacco Use: Cigarettes Assessment/Plan All Active Problems Acute colitis of the left hemicolon (Acute) Etiology to the patient's colitis is not determined I plan for a bowel prep today and a colonoscopy tomorrow a.m. Pt has had an opportunity to ask and have questions answered.
[2018-01-03 06:14] LABS: POSITIVE COUNT NO; POSITIVE DIFFERENTIAL NO; POSITIVE MORPHOLOGY NO
[2018-01-03 06:17] LABS: ALB/GLOB Ratio 0.9 RATIO (0.9-2.4); AST(SGOT) 22 U/L (15-37); Alanine Aminotransfer ALT/SGPT 31 U/L (13-56); Alkaline Phosphatase 74 U/L (45-117); Anion Gap 8 (5-15); BUN 8 mg/dL (7-18); BUN/Creat Ratio 11.1 RATIO (10-20); Calcium,Total 8.4 mg/dL (8.5-10.1); Chloride 109 mmol/L (98-107); Creatinine, Serum 0.72 mg/dL (0.55-1.02); EST Glomerular Filtration Rate 88 mL/min (>60); Est Glom Filt Rate - Afr Amer 107 mL/min (>60); Estimated Creatinine Clearance 86.96 ml/min; Globulin 3.2 g/dL (2.2-4.2); Glucose 94 mg/dL (74-106); Potassium 4.1 mmol/L (3.5-5.1); Protein, Total 6.2 g/dL (6.4-8.2); Sodium Level 145 mmol/L (136-145)
[2018-01-03 07:05] LABS: Bedside Glucose 112 mg/dL (70-110)
[2018-01-03 08:00] VITALS: BP 107/71; PULSE 69; RESP 18; TEMP 36.9; O2SAT 98
[2018-01-03] MEDS: buPROPion (XL) 300 MG TABLET.XL PO (08:04)
[2018-01-03] MEDS: Magnesium Oxide 400 MG Tablet PO (08:04)
--- NOTE | 2018-01-03 08:46 | PCM.PROGNOTE ---
Patient Problems: Active and Suspected Problems Acute colitis of the left hemicolon (Acute) Subjective: Chief complaint: Follow-up after admission for acute colitis of the left hemicolon. Patient seen and examined. No acute events overnight. Today, she has no more abdominal pain, it is resolved. Denied nausea vomiting. She has no more bloody stool. Her vital signs are stable, afebrile. - Physical Exam General: Alert, Oriented x3, Cooperative, No apparent distress HEENT: Atraumatic, PERRLA, EOMI, Normocephalic Oral: Moist Mucosa, No Gingival or Mucosal Lesions/ Ulcerations Neck: Supple, No JVD, Negative Carotid Bruits, Trachea Midline, Thyroid Normal Size and Texture Lungs: Clear to auscultation, Normal air movement, No rhonchi, No wheeze, No rales Cardiovascular: Regular rate, Regular Rhythm, Normal S1, Normal S2, No murmurs Abdomen: Bowel Sounds Present, Soft, Non Tender, Non-Distended, No Hepato-splenomegaly Extremities: No clubbing, No cyanosis, No edema Skin: No rashes, No breakdown Lymphatic: No Cervical, Supraclavicular, or Inguinal Adenopathy Neurological: Cranial nerves II-XII grossly intact, Motor Exam 5/5 strength throughout Psych/Mental Status: Normal Affect, Appropriate, Alert and oriented to time, place, person, mood and affect Vital Signs Temp Pulse Resp BP Pulse Ox 98.4 F 69 18 107/71 98 01/03/18 08:00 01/03/18 08:00 01/03/18 08:00 01/03/18 08:00 01/03/18 08:00 Oxygen Delivery Method Room Air Weight: 207 lb Body Mass Index (BMI) 31.4 Intake and Output for Last 24 Hours 01/01/18 01/02/18 01/03/18 23:59 23:59 23:59 Intake Total 1814 / 1814 Output Total 2200 / 2200 Balance -386 / -386 Laboratory Tests Past 24 Hrs 01/03/18 01/03/18 05:08 05:08 WBC 6.2 RBC 4.14 L Hgb 12.6 Hct 39.5 MCV 95.4 MCH 30.4 MCHC 31.9 L RDW 13.4 RDW Differential 46.9 H Plt Count 196 MPV 9.7 Immature Gran % (Auto) 0.000 Neut % (Auto) 57.0 Lymph % (Auto) 29.5 Richardson % (Auto) 9.5 Eos % (Auto) 3.5 Baso % (Auto) 0.5 Absolute Neuts (auto) 3.6 Absolute Lymphs (auto) 1.84 Total Counted Not Reportable Sodium 145 Potassium 4.1 Chloride 109 H Carbon Dioxide 28.0 Anion Gap 8 BUN 8 Creatinine 0.72 Estim Creat Clear Calc 86.96 Est GFR (MDRD) Af Amer 107 Est GFR (MDRD) Non-Af 88 BUN/Creatinine Ratio 11.1 Glucose 94 Calcium 8.4 L Total Bilirubin 0.30 AST 22 ALT 31 Alkaline Phosphatase 74 Total Protein 6.2 L Albumin 3.0 L Globulin 3.2 Albumin/Globulin Ratio 0.9 POC Glucose 01/03/18 01/03/18 01/02/18 06:52 01:51 22:19 POC Glucose 112 H 95 89 01/02/18 16:55 POC Glucose 93 Medical Necessity - Tobacco Use Smoking Status: Former smoker Assessment/Plan All Active Problems Acute colitis of the left hemicolon (Acute) This is a 57-year-old female patient presented to the ED because of left lower quadrant abdominal pain and bloody stool, found to have findings consistent with acute colitis of the left hemicolon and she is being admitted for treatment. #1 acute colitis of the left hemicolon: She is on IV Flagyl, IV fluids and IV pain medications. Today, she has normal symptoms, pain resolved. She has no more bloody stool. Because patient has no more diarrhea, no stool sent for C. difficile or enteric pathogens. CT scan abdomen and pelvis report mentioned that this acute colitis is due to ischemic colitis. At this time, I doubt this is due to ischemic colitis. General surgery on the case. Plan for colonoscopy tomorrow. #2 type 2 diabetes mellitus: Blood sugar stable, continue ADA diet, Accu-Cheks, insulin sliding scale, continue daily Victoza. #3 hypertension: Blood pressure stable, continue lisinopril. #4 hypothyroidism: Continue levothyroxine. #5 hyperlipidemia: Continue statins. #6 DVT prophylaxis: Low risk patient, no prophylaxis indicated, ambulate. This note was generated with [employer] software. It may contain incorrect words, spelling, and punctuation that were not noted in checking the note before signing. Code Visit Inpatient E&M: 87347 Subs Hosp L2
[2018-01-03 11:40] LABS: Bedside Glucose 88 mg/dL (70-110)
--- NOTE | 2018-01-03 14:04 | CASEMGMT ---
See RN CM Assessment Link. DC Plan: home, no needs identified. Tobias MOOREN RN ACM
[2018-01-03 14:20] VITALS: BP 131/81; PULSE 68; RESP 18; TEMP 36.7; O2SAT 98
[2018-01-03] MEDS: Electrolyte Solution/Peg's 4000 ML PO (14:20)
[2018-01-03 15:30] VITALS: O2SAT 96
[2018-01-03] MEDS: Ondansetron 4 MG/2 ML Vial IV (15:48)
[2018-01-03 17:26] LABS: Bedside Glucose 84 mg/dL (70-110)
[2018-01-03 21:15] VITALS: BP 120/85; PULSE 82; RESP 18; TEMP 37.2; O2SAT 95
[2018-01-03] MEDS: Pravastatin 80 MG Tablet PO (22:42)
[2018-01-03 23:01] LABS: Bedside Glucose 99 mg/dL (70-110)
[2018-01-04] VITALS (10 sets, daily range): BP systolic 99–135; BP diastolic 50–91; PULSE 68–87; RESP 16–18; TEMP 36.4–36.9; O2SAT 92–100
[2018-01-04] MEDS: 0.9% Normal Saline 1,000 ML 100 ML IV (00:03)
[2018-01-04] MEDS: Dextrose 5%/0.9% NaCl 1,000 ML 100 ML IV ×2 (00:52→11:01)
[2018-01-04 05:11] LABS: Bedside Glucose 101 mg/dL (70-110)
--- NOTE | 2018-01-04 06:30 | COLBX_PTH ---
PATIENT: BRITTNY WADE LOC: [facility]3 U#:[id number] AGE/SX: 57/F ROOM: [facility]306 RE01/02/[address]: Dr. González Jones MD : [id number] BED: 1 DIS: 01/04/2018 SPEC #: [id number] RECD: 01/04/18 08:35 STATUS: TIERA REQ #: [id number] JORGE: 01/04/18 06:[address]: Christoph Iqbal DEPT: SURGICAL PATHOLOGY RECD BY: Fernando Garcia ENTERED: 01/04/18 09:39 SP TYPE: COLON BX OTHR DR: MD Dr. Farideh Mcneill MD Dr. Lisa Malys, DO Tissues: A - SPLENIC FLEXURE B - Descending colon C - Rectum, NOS Procedures: Surgery Specimen Level IV Comments: @ Ordering doctor for SUIV edited from to @ osito SHAY at 01/04/18 1016 @ Submitting doctor edited from to @ osito SHAY at 01/04/18 1016 HEADER OPERATION: Colonoscopy PRE-OP DIAGNOSIS: Colitis TISSUE SUBMITTED: A ? Splenic flexure biopsy, B ? Descending colon biopsy, C ? Rectal biopsy MICROSCOPIC DIAGNOSIS A. Splenic flexure, biopsy: Consistent with ischemic colitis. B. Descending colon, biopsy: Consistent with ischemic colitis. C. Rectal biopsy: A fragment of colonic mucosa, no pathologic diagnosis. COLE:sujatha 01/05/18 MICROSCOPIC DESCRIPTION Slides are reviewed. GROSS DESCRIPTION A - Received in fixative is one container labeled with the patient's name and designated splenic flexure biopsy. The specimen consists of multiple irregular fragments of light murrell soft tissue that in aggregate measure 1.5 x 0.2 x 0.1 cm. The specimen is totally submitted in one cassette. B - Received in fixative is one container labeled with the patient's name and designated descending colon biopsy. The specimen consists of one irregular fragment of light murrell soft tissue that measures 0.6 x 0.2 x 0.1 cm. The specimen is totally submitted in one cassette. C - Received in fixative is one container labeled with the patient's name and designated rectal biopsy. The specimen consists of one irregular fragment of light murrell soft tissue that measures 0.3 x 0.3 x 0.1 cm. The specimen is totally submitted in one cassette. / COLE:sujatha 01/04/18 TC:5 CPT: 98830 x3
--- NOTE | 2018-01-04 06:57 | PCM.OPRPT ---
Problem List (1) Acute colitis of the left hemicolon Status: Acute Report of Operation Date of Procedure: 01/04/18 Pre-Operative Diagnosis: Suspected descending colon colitis with rectal bleeding Post-Operative Diagnosis: Limited focal colitis of the splenic flexure with a separate area in the descending colon. No diverticulosis identified Surgery/Procedure Performed:: Colonoscopy with cold forcep biopsy Description of Surgical Findings:: Timeout and informed consent was obtained. 57-year-old female was taken to the endoscopy room. She was placed in the left lateral decubitus position. Throughout the procedure she received a total of 150 mg of Demerol and 3.5 mg Versed is intravenous sedation. Digital rectal exam performed. Normal anal tone. Mild hemorrhoidal changes. Flexible colonoscope inserted the rectum advanced through a quite tortuous sigmoid colon. The scope was advanced to the splenic flexure where there was a very focal area of slight edema and slight erythema. The scope was advanced past that into the transverse colon due to the laxity of the sigmoid colon though advancement was challenging I placed patient supine and transabdominal pressure was required got to the hepatic flexure then placed the patient back in a left lateral decubitus position and with continued abdominal support was able to get the scope to go to the cecum. The cecum ileocecal valve area was achieved. Bowel prep was very good. The scope was carefully withdrawn from the cecum ascending colon transverse colon over to the splenic flexure. The mild erythema with slight mucosal edema noted at the splenic flexure and cold forcep biopsies were obtained. Then in the proximal descending colon there was a relative area that was. And then another very small focal area of erythema in the descending colon. This was separately biopsied. The scope was withdrawn from the sigmoid colon and particular note is that I did not see diverticulosis. The scope was withdrawn to the rectum the mucosa grossly appeared normal I did obtain a cold forcep rectal biopsy. The scope was retroflexed minimal hemorrhoidal changes noted. Excess fluid and air was aspirated free the procedure was completed with the patient tolerating it well. Impression Minimal erythema at the splenic flexure and in the proximal descending colon. No active bleeding. No diverticulosis identified. Cold forcep biopsies pending of the splenic flexure descending colon and rectum At this point I think it would be reasonable to treat the patient with metronidazole 500 mg p.o. 3 times daily for 5-7 days as an outpatient. Next screening colonoscopy recommended in 10 years Previous colonoscopy reported to be a couple years prior Patient will be contacted as an outpatient with pathology results Medications were given at 0629. The scope was inserted 0631. The cecum was reached at 0644. The procedure was completed at 0652. cc:Dr Guero Iqbal M.D., F.A.C.S. Type of Anesthesia:: IV Sedation
--- NOTE | 2018-01-04 09:26 | PCM.PN.HOSP ---
Patient Problems: Active and Suspected Problems Acute colitis of the left hemicolon (Acute) Vitals/I&O's: Vital Signs Temp Pulse Resp BP Pulse Ox 97.8 F 72 16 99/55 L 97 01/04/18 07:38 01/04/18 07:38 01/04/18 07:38 01/04/18 07:38 01/04/18 07:38 Oxygen Delivery Method Room Air Weight: 93.894 kg Body Mass Index (BMI) 31.4 Intake and Output for Last 24 Hours 01/02/18 01/03/18 01/04/18 23:59 23:59 23:59 Intake Total 5182 / 5182 4161 / 4161 Output Total 5700 / 5700 400 / 400 Balance -518 / -518 3761 / 3761 Laboratory Results 01/03/18 11:33: POC Glucose 88 01/03/18 17:20: POC Glucose 84 01/03/18 22:36: POC Glucose 99 01/04/18 04:57: POC Glucose 101 Current Medications Acetaminophen (Tylenol) 650 mg PO Q6H PRN PRN PRN Reason: Non-cardiac pain (mod-severe) Last Admin: 01/03/18 09:40 Dose: 650 mg Bupropion HCl (Wellbutrin Xl) 300 mg PO DAILY [facility] Last Admin: 01/03/18 08:04 Dose: 300 mg Metronidazole (Flagyl) 500 mg in 100 mls @ 100 mls/hr IV Q8 [facility] Last Admin: 01/04/18 05:01 Dose: 100 mls/hr Dextrose/Sodium Chloride (Dextrose 5%/0.9% Nacl) 1,000 mls @ 100 mls/hr IV .Q10H [facility] Last Admin: 01/04/18 00:52 Dose: 100 mls/hr Insulin Human Lispro (Humalog Kwikpen (Bkc)) 0 unit SC ACHS [facility] PRN Reason: Protocol Last Admin: 01/03/18 22:45 Dose: Not Given Levothyroxine Sodium (Synthroid) 75 mcg PO DAILY@0600 [facility] Last Admin: 01/03/18 06:07 Dose: 75 mcg Lidocaine HCl (Lidocaine Hcl 1% Mdv) 1 ml INFILT X1 ONE Stop: 01/04/18 09:16 Lisinopril (Zestril) 10 mg PO DAILY [facility] Last Admin: 01/03/18 08:04 Dose: Not Given Magnesium Oxide (Mag-Ox 400) 400 mg PO DAILY [facility] Last Admin: 01/03/18 08:04 Dose: 400 mg Morphine Sulfate () 1 - 2 mg IV Q4H PRN PRN PRN Reason: SEVERE PAIN (6-10/10) Last Admin: 01/02/18 17:14 Dose: 1 mg Nutritional Formula (Lactose Free) (Glucerna Shake) 120 ml PO TIDCM [facility] Last Admin: 01/03/18 15:26 Dose: Not Given Ondansetron HCl (Zofran) 4 mg IV Q6H PRN PRN PRN Reason: NAUSEA/VOMITING Last Admin: 01/03/18 15:48 Dose: 4 mg Pravastatin Sodium (Pravachol) 80 mg PO QHS [facility] Last Admin: 01/03/18 22:42 Dose: 80 mg Sodium Chloride () 5 - 30 ml IV UD PRN PRN Reason: SALINE FLUSH Medical Necessity - Tobacco Use Smoking Status: Former smoker Tobacco Use: Cigarettes Assessment/Plan All Active Problems Acute colitis of the left hemicolon (Acute)
[2018-01-04 09:50] LABS: Bedside Glucose 109 mg/dL (70-110)
[2018-01-04] MEDS: Morphine 2 MG/ML Syringe IV (09:57)
[2018-01-04] MEDS: 0.9% NaCl Peripheral Flush Adult/Peds IV ×2 (10:04→10:12)
[2018-01-04] MEDS: Ondansetron 4 MG/2 ML Vial IV (10:11)
--- NOTE | 2018-01-04 10:51 | PCM.DC.GS ---
Discharge Diet: Light diet - advance as tolerated May shower in (days): 1 Lifting Restrictions: 10 pounds Call your doctor if your incision/area has: Continuous Slow Oozing, Sudden Increased Bleeding, Increased Pain/ Swelling, Increased Redness, Foul Smelling Discharge, Fever of 101 or Higher Suture Line Care: Avoid Pulling/Pushing, Avoid Pinching/Bending Additional Instructions: Recommend pulling packing tomorrow. This area may bleed. Just hold pressure for approximately 5-9 minutes. Continue to keep a bandage or gauze over top of the incision until completely closed. May wash area with soap and water. Take Flagyl for 5 days You will be contacted with your pathology results from your colonoscopy Repeat colonoscopy in 10 years Allergies/Adverse Reactions: Allergies No Known Allergies Allergy (Verified 01/02/18 10:04) Medications to take at Discharge Ascorbic Acid [Vitamin C] 1,000 mg PO QHS 01/02/18 Aspirin [Aspirin, Baby] 81 mg PO QHS 01/02/18 Cholecalciferol (Vitamin D3) [Vitamin D3] 3,000 unit PO QHS 01/02/18 Doxycycline Monohydrate [Doxycycline Ir-Dr] 40 mg PO DAILY 01/02/18 Fluticasone Propionate [24 Hour Allergy Relief] 1 spray NS QHS 01/02/18 Garlic 1,000 mg PO QHS 01/02/18 Lactobac No.30/Bifidobact No.4 [Ultimate Juliet Probiotic Dr Cp] 1 each PO QHS 01/02/18 Levothyroxine [Synthroid] 75 mcg PO DAILY 01/02/18 Liraglutide [Victoza] 1.8 mg SQ DAILY 01/02/18 Lisinopril [Zestril] 10 mg PO QHS 01/02/18 Magnesium Oxide [Mag-Ox 400] 400 mg PO QHS 01/02/18 Niacin [Niacin ER] 500 mg PO QHS 01/02/18 Pravastatin [Pravachol] 80 mg PO QHS 01/02/18 Vitamin B Complex/Folic Acid [Super B Maxi Complex Caplet] 0.4 mg PO QHS 01/02/18 buPROPion XL [Wellbutrin Xl] 300 mg PO DAILY 01/02/18 Metronidazole [Flagyl] 500 mg PO TID #15 tab 01/04/18 The following prescriptions were given: Metronidazole [Flagyl] 500 mg PO TID #15 tab Primary Care Physician: Inez Jack DO [Primary Care Provider] - Test Results: Test results from this visit will be discussed in further detail at your follow-up appointment, if applicable. Please Follow Up With: Adelina Henriquez PA-C - [phone] When: 14 days Proposed Discharge Date: 01/04/18
--- NOTE | 2018-01-04 10:54 | DCINST_ITS ---
Discharge Diet: Light diet - advance as tolerated May shower in (days): 1 Lifting Restrictions: 10 pounds Call your doctor if your incision/area has: Continuous Slow Oozing, Sudden Increased Bleeding, Increased Pain/ Swelling, Increased Redness, Foul Smelling Discharge, Fever of 101 or Higher Suture Line Care: Avoid Pulling/Pushing, Avoid Pinching/Bending Additional Instructions: Recommend pulling packing tomorrow. This area may bleed. Just hold pressure for approximately 5-9 minutes. Continue to keep a bandage or gauze over top of the incision until completely closed. May wash area with soap and water. Take Flagyl for 5 days You will be contacted with your pathology results from your colonoscopy Repeat colonoscopy in 10 years Allergies/Adverse Reactions: Allergies No Known Allergies Allergy (Verified 01/02/18 10:04) Medications to take at Discharge Ascorbic Acid [Vitamin C] 1,000 mg PO QHS 01/02/18 Aspirin [Aspirin, Baby] 81 mg PO QHS 01/02/18 Cholecalciferol (Vitamin D3) [Vitamin D3] 3,000 unit PO QHS 01/02/18 Doxycycline Monohydrate [Doxycycline Ir-Dr] 40 mg PO DAILY 01/02/18 Fluticasone Propionate [24 Hour Allergy Relief] 1 spray NS QHS 01/02/18 Garlic 1,000 mg PO QHS 01/02/18 Lactobac No.30/Bifidobact No.4 [Ultimate Juliet Probiotic Dr Cp] 1 each PO QHS Levothyroxine [Synthroid] 75 mcg PO DAILY 01/02/18 Liraglutide [Victoza] 1.8 mg SQ DAILY 01/02/18 Lisinopril [Zestril] 10 mg PO QHS 01/02/18 Magnesium Oxide [Mag-Ox 400] 400 mg PO QHS 01/02/18 Niacin [Niacin ER] 500 mg PO QHS 01/02/18 Pravastatin [Pravachol] 80 mg PO QHS 01/02/18 Vitamin B Complex/Folic Acid [Super B Maxi Complex Caplet] 0.4 mg PO QHS buPROPion XL [Wellbutrin Xl] 300 mg PO DAILY 01/02/18 Metronidazole [Flagyl] 500 mg PO TID #15 tab 01/04/18 The following prescriptions were given: Metronidazole [Flagyl] 500 mg PO TID #15 tab Primary Care Physician: Inez Jack DO [Primary Care Provider] - Test Results: Test results from this visit will be discussed in further detail at your follow- up appointment, if applicable. Please Follow Up With: Adelina Henriquez PA-C - [phone] When: 14 days Proposed Discharge Date: 01/04/18
--- NOTE | 2018-01-04 10:55 | PN_ITS ---
Progress Note Procedure note Procedure: Incision and Drainage of right gluteal fold abscess Permit: Procedure, benefits, risks (include those of bleeding, infection, injury , anesthesia, and allergic reaction), and alternatives explained to the patient who voiced understanding of the information. Their questions were sought and answered. Patient agreed to proceed with the Incision and Drainage of right gluteal fold abscess. Indication: Incision and Drainage of right gluteal fold abscess Physician: Adelina Henriquez PA-C Description: Area prepped with Betadine and draped in a sterile fashion. Local anesthetic administered with 2 cc of 1% lidocaine. A linear incision was made with very small amount of purulent, bloody fluid was expressed. Small and moderate sized cyst wall was removed. Cavity was probed to break up any pockets. Culture was not obtained. Cavity was packed with plain packing. Surrounding area was cleansed with normal saline and gauze dressing was applied. Patient tolerated the procedure well. Complications: None Disposition: Patient alert and oriented. Patient will be discharged today on Flagyl for abdominal symptoms. Patient was instructed to remove packing tomorrow. She may wash with soap and water. Continue to keep area covered until incision is completely closed. Follow-up with me in 2 weeks. Our office will call with pathology results from her colonoscopy. Recommend repeat colonoscopy in 10 years. Code Visit Inpatient E&M: 08350 Subs Hosp L2 - Incision and drainage procedure at bedside
[2018-01-04] MEDS: Levothyroxine 75 MCG Tablet PO (10:58)
--- NOTE | 2018-01-04 11:39 | PCM.DC ---
- Discharge Diagnoses Current Active Problems: Current Active and Chronic Problems Acute colitis of the left hemicolon (Acute) Hypothyroidism (Chronic) Hyperlipidemia (Chronic) Type 2 diabetes mellitus (Chronic) Hypertension (Chronic) You will use the following diet at home:: Regular, Calorie/Carbohydrate Controlled (specify 1200, 1400, etc) - 1800 Your food should be the consistency of: Regular Discharge Activity: Return to Normal Activity May shower in (days): 1 Call your doctor if your incision/area has: Continuous Slow Oozing, Sudden Increased Bleeding, Increased Pain/ Swelling, Increased Redness, Foul Smelling Discharge, Fever of 101 or Higher Suture Line Care: Avoid Pulling/Pushing, Avoid Pinching/Bending Allergies/Adverse Reactions: Allergies No Known Allergies Allergy (Verified 01/02/18 10:04) Medications to take at Discharge Ascorbic Acid [Vitamin C] 1,000 mg PO QHS 01/02/18 Aspirin [Aspirin, Baby] 81 mg PO QHS 01/02/18 Cholecalciferol (Vitamin D3) [Vitamin D3] 3,000 unit PO QHS 01/02/18 Doxycycline Monohydrate [Doxycycline Ir-Dr] 40 mg PO DAILY 01/02/18 Fluticasone Propionate [24 Hour Allergy Relief] 1 spray NS QHS 01/02/18 Garlic 1,000 mg PO QHS 01/02/18 Lactobac No.30/Bifidobact No.4 [Ultimate Juliet Probiotic Dr Cp] 1 each PO QHS 01/02/18 Levothyroxine [Synthroid] 75 mcg PO DAILY 01/02/18 Liraglutide [Victoza] 1.8 mg SQ DAILY 01/02/18 Lisinopril [Zestril] 10 mg PO QHS 01/02/18 Magnesium Oxide [Mag-Ox 400] 400 mg PO QHS 01/02/18 Niacin [Niacin ER] 500 mg PO QHS 01/02/18 Pravastatin [Pravachol] 80 mg PO QHS 01/02/18 Vitamin B Complex/Folic Acid [Super B Maxi Complex Caplet] 0.4 mg PO QHS 01/02/18 buPROPion XL [Wellbutrin Xl] 300 mg PO DAILY 01/02/18 Metronidazole [Flagyl] 500 mg PO TID #15 tab 01/04/18 The following prescriptions were given: Metronidazole [Flagyl] 500 mg PO TID #15 tab Primary Care Physician: Inez Jack DO [Primary Care Provider] - Please follow up with your Primary Care Physician in: on 5- 7 days Test Results: Test results from this visit will be discussed in further detail at your follow-up appointment, if applicable. Please Follow Up With: Adelina Henriquez PA-C - [phone] When: 14 days Proposed Discharge Date: 01/04/18
--- NOTE | 2018-01-04 11:42 | PCM.DC.SUM ---
Discharge Date and Diagnosis - Problem List Patient Problems: Active and Suspected Problems Acute colitis (Acute) Acute colitis of the left hemicolon (Acute) Date of Admission: 01/02/18 Date of Discharge: 01/04/18 - Primary Discharge Diagnosis Active and Suspected Problems Acute colitis (Acute) Acute colitis of the left hemicolon (Acute) - Secondary Discharge Diagnosis Chronic Problems Hypothyroidism (Chronic) Hyperlipidemia (Chronic) Type 2 diabetes mellitus (Chronic) Hypertension (Chronic) Hospital Course and Treatment Imaging Results: Clinical Impression(s) from Imaging Studies Abdomen/Pelvis CT 01/02/18 10:24 IMPRESSION: Findings suggestive of ischemic colitis involving the left hemicolon as described. Electronically Signed: Kt Murphy MD at 12:52 EDT Tel [phone], Service support , Summary of Care Provided: The patient is a 57 year old F admitted with left lower quadrant abdominal pain as well as hematochezia consistent with acute colitis involving the left hemicolon next 1. Acute colitis patient was admitted to regular nursing floor CT of the abdomen obtained results as above. Stool for enteric pathogens came back negative patient was managed with Flagyl with improvement. Consult was placed to general surgery patient was seen by Dr. Christoph Iqbal who did perform colonoscopy on 01-20 with findings of limited focal colitis involving the splenic flexure with separate area in the descending colon. Patient condition did stabilize and was discharged home on Flagyl with plans for patient to follow-up with PCP as well as general surgery 2. Diabetes mellitus type 2: Did continue with home regimen 3. Hypertension-blood pressure controlled, home medications continued with dose adjustment as needed 4. Dyslipidemia-patient is on statin therapy, continued at home dose 5. Hypothyroidism; patient is on levothyroxine did continue with home dose 6. DVT prophylaxis patient was deemed to be low risk did encourage early ambulation Discharge Diet: Light diet - advance as tolerated Discharge Activity: Return to Normal Activity May shower in (days): 1 Call your doctor if your incision/area has: Continuous Slow Oozing, Sudden Increased Bleeding, Increased Pain/ Swelling, Increased Redness, Foul Smelling Discharge, Fever of 101 or Higher Suture Line Care: Avoid Pulling/Pushing, Avoid Pinching/Bending Home Medications: Medications to take at Discharge Ascorbic Acid [Vitamin C] 1,000 mg PO QHS 01/02/18 Aspirin [Aspirin, Baby] 81 mg PO QHS 01/02/18 Cholecalciferol (Vitamin D3) [Vitamin D3] 3,000 unit PO QHS 01/02/18 Doxycycline Monohydrate [Doxycycline Ir-Dr] 40 mg PO DAILY 01/02/18 Fluticasone Propionate [24 Hour Allergy Relief] 1 spray NS QHS 01/02/18 Garlic 1,000 mg PO QHS 01/02/18 Lactobac No.30/Bifidobact No.4 [Ultimate Juliet Probiotic Dr Bee] 1 each PO QHS 01/02/18 Levothyroxine [Synthroid] 75 mcg PO DAILY 01/02/18 Liraglutide [Victoza] 1.8 mg SQ DAILY 01/02/18 Lisinopril [Zestril] 10 mg PO QHS 01/02/18 Magnesium Oxide [Mag-Ox 400] 400 mg PO QHS 01/02/18 Niacin [Niacin ER] 500 mg PO QHS 01/02/18 Pravastatin [Pravachol] 80 mg PO QHS 01/02/18 Vitamin B Complex/Folic Acid [Super B Maxi Complex Caplet] 0.4 mg PO QHS 01/02/18 buPROPion XL [Wellbutrin Xl] 300 mg PO DAILY 01/02/18 Metronidazole [Flagyl] 500 mg PO TID #15 tab 01/04/18 Following Prescrptions Were Given to Patient: Metronidazole [Flagyl] 500 mg PO TID #15 tab Primary Care Physician: Inez Jack DO [Primary Care Provider] - Please follow up with your Primary Care Physician in: on 5- 7 days Please Follow Up With: Adelina Henriquez PA-C - [phone] When: 14 days Additional Instructions: Recommend pulling packing tomorrow. This area may bleed. Just hold pressure for approximately 5-9 minutes. Continue to keep a bandage or gauze over top of the incision until completely closed. May wash area with soap and water. Take Flagyl for 5 days You will be contacted with your pathology results from your colonoscopy Repeat colonoscopy in 10 years Disposition: Home Minutes spent on discharge:: 36 Patient Condition:: Stable Medical Necessity - Tobacco Use Smoking Status: Former smoker Tobacco Use: Cigarettes Meaningful Use Info Meaningful Use Diagnoses (Choose all that apply): None applicable Code Visit Inpatient E&M: 43846 Disch Hosp
== END 2018-01-04 14:23 | disposition home or self-care (01) | DRG 392 ==
LOC: ED 13:56 → MS3 15:57
PROVIDERS: Surgery; Admitting Provider Hospitalist; Emergency Provider Emergency Medicine; Family Provider Family Medicine; PCP Family Medicine; Visit Provider Internal Medicine
PROC: 0DJD8ZZ Inspection of Lower Intestinal Tract, Via Natural or Artificial Opening Endoscopic (ICD-10-PCS; CPT 45378; principal; 2018-01-04 06:25)
DX: K52.9 Noninfective gastroenteritis and colitis, unspecified (principal); L02.31 Cutaneous abscess of buttock; L03.115 Cellulitis of right lower limb; E11.9 Type 2 diabetes mellitus without complications; I10 Essential (primary) hypertension; E78.5 Hyperlipidemia, unspecified; E03.9 Hypothyroidism, unspecified; K64.9 Unspecified hemorrhoids; Z79.82 Long term (current) use of aspirin; Z79.899 Other long term (current) drug therapy; Z87.891 Personal history of nicotine dependence; Z90.710 Acquired absence of both cervix and uterus; Z90.49 Acquired absence of other specified parts of digestive tract
CPT/HCPCS: 36415; 74177; 80048; 80053; 81001; 82962; 83605; 85025; 87506; 88305; 97802; 99152; 99153; 99282; J7030; Q9967; A4216; J2405

== ENCOUNTER → 2018-01-26 08:04 | Outpatient (CLI) | payer OTHER, SELFPAY | PROVIDERS: Family Provider Family Medicine; PCP Family Medicine; Visit Provider Surgery | DX: K55.9 Vascular disorder of intestine, unspecified (principal) | CPT/HCPCS: 76706 ==

== ENCOUNTER → 2018-01-30 08:34 | Outpatient (CLI) | payer OTHER, SELFPAY ==
[2018-01-30 12:35] LABS: Cholesterol 202 mg/dL (200); High Density Lipoprotein 47 mg/dL; Triglycerides 137 mg/dL; Very Low Density Lipoprotein 27 mg/dL (5-40)
== END ==
PROVIDERS: Family Provider Family Medicine; PCP Family Medicine; Visit Provider Family Medicine
DX: K55.9 Vascular disorder of intestine, unspecified (principal); E78.5 Hyperlipidemia, unspecified
CPT/HCPCS: 36415; 80061

== ENCOUNTER → 2018-03-16 12:16 | Outpatient (CLI) | payer OTHER, SELFPAY ==
--- NOTE | 2018-03-16 12:21 | STE_ITS ---
Reason For Study: ABN. EKG, CHEST PAIN Stress Results Protocol: Corky Protocol Maximum Predicted HR: 163 bpm Target HR: 139 bpm% Max imum Predicted HR: 101 % DurationHeart Rate Stage (mm:ss) (bpm) BPCom ment BASELINE 76 160/92 STAGE 1 3:00 12 9 190/80 STAGE 2 3:00 15 1 200/86SOB AND SLIGHT PRESSURE STAGE 3 1:00 16 4 / INC REASED SOB RECOVERY 98 162/88 Stress Duration: 7:00 mm:ss Maximum Stress HR: 164 bpm Baseline Echocardiogram Findings Stress Echo Wall motion Data Resting WMIntermediate WMStress WM Resting Wall Motion Wall Motion Stress No regional wall motion No regional wall motion abnormalities noted. abnormalities noted. Ejection Fraction 55 %. Ejection Fraction 65 %. Stress Results The patient exhibited a hypertensive response with stress. Exercise was stopped due to dyspnea. Interpretation Summary Stress protocol: Resting EKG demonstrates normal sinus rhythm with a rate of 70 bpm normal intervals and noted resting blood pressure 160/92 mmHg. The patient exercised according to regular Corky protocol for total duration of 7 minutes completing 1 minute into stage III of the Corky protocol. The maximum heart rate attained was 176 bpm which was 107% of maximum predicted heart rate the maximum workload was 10.1 metabolic equivalents. At rest there were no ST or T wave changes noted suggest ischemia at peak exercise upsloping ST change of 1.0 mm was noted in lead II and aVF and 1.[address] depression noted in lead III. The above though suggestive but not diagnostic of ischemia. No clinical angina was noted. The resting blood pressure 160/92 with a peak blood pressure of 200/86. Hypertensive response to exercise was noted. Stress echocardiographic images. Resting echocardiogram demonstrated ejection fraction of 55% with no wall motion abnormality noted. Stress echocardiographic images demonstrated thickening of all frausto augmentation of left ventricular ejection fraction estimated at 65%. No wall motion abnormalities were noted suggest ischemia. Conclusion: Exercise stress test with no EKG criteria for ischemia at a moderate workload. Normal stress echocardiographic imaging. Ordering Physician: Inez Jack Referring Physician: Inez Jack Performed By: Kaitlynn Blevins, JACLYN, RVT
== END ==
PROVIDERS: Family Provider Family Medicine; PCP Family Medicine; Referring Provider Family Medicine; Visit Provider Family Medicine
DX: R07.9 Chest pain, unspecified (principal); R94.31 Abnormal electrocardiogram [ECG] [EKG]
CPT/HCPCS: 93017; 93350

== ENCOUNTER → 2018-06-06 08:22 | Outpatient (CLI) | payer OTHER, SELFPAY ==
[2018-06-06 12:56] LABS: Cholesterol 167 mg/dL (200); Hemoglobin A1c 6.2 % (4.2-6.3); High Density Lipoprotein 45 mg/dL; Triglycerides 90 mg/dL; Very Low Density Lipoprotein 18 mg/dL (5-40)
== END ==
PROVIDERS: Family Provider Family Medicine; PCP Family Medicine; Visit Provider Family Medicine
DX: E11.9 Type 2 diabetes mellitus without complications (principal); E78.5 Hyperlipidemia, unspecified
CPT/HCPCS: 36415; 80061; 83036

== ENCOUNTER → 2018-07-02 13:32 | Outpatient (CLI) | payer OTHER, SELFPAY ==
[2018-01-29 13:31] VITALS: BMI 31.4
--- NOTE | 2018-07-02 13:44 | RAD_ITS ---
STUDY: X-RAY CHEST REASON FOR EXAM: Female, 57 years old. Cough TECHNIQUE: PA and lateral chest COMPARISON: CT abdomen and pelvis 01/02/2018 FINDINGS: The lungs are clear and expanded. Normal cardiomediastinal silhouette, sasha and pleural margins. No acute osseous or upper abdominal process. RAD/Chest PA and Lateral IMPRESSION: No acute cardiopulmonary process. Electronically Signed: Fernando Ley MD at 17:50 EST Tel , Service support ,
== END ==
LOC: MTLAB 13:36 → MTRAD 13:43
PROVIDERS: Family Provider Family Medicine; PCP Family Medicine; Referring Provider Family Medicine; Visit Provider Family Medicine
DX: R05 Cough (principal); R06.00 Dyspnea, unspecified
CPT/HCPCS: 71046

== ENCOUNTER → 2018-10-19 11:43 | Outpatient (CLI) | payer OTHER, SELFPAY ==
--- NOTE | 2018-10-19 11:45 | BI_ITS ---
MAMMOGRAPHY - BILATERAL SCREENING REASON FOR EXAM: Female, 58 years old. Routine annual screening examination. PERTINENT HISTORY: Aunt with breast cancer. TECHNIQUE: Digital bilateral breast nikki (3D mammographic acquisition) in the CC and MLO projections. 2-D mediolateral oblique (MLO) and craniocaudad (CC) views of both breasts were obtained. CAD: Full Field Digital Mammography with Computer Added Detection was performed. COMPARISON: Comparison is made with prior study dated August 08, 2016 and October 05, 2017. FINDINGS: Breast Composition: The breasts are almost entirely fatty. There are no dominant masses or suspicious calcifications. No other significant abnormalities are identified. There has been no significant change since the prior study. BI/SCREENING MAMM (CAD), BILAT IMPRESSION: Stable bilateral screening mammogram. Yearly follow-up mammogram recommended. (A) ASSESSMENT CATEGORY: BIRADS Category 1: Negative. A letter regarding these results will be sent to the patient by the facility within 30 days. Approximately 10% of breast cancers are not detected by mammography. A normal mammogram should not delay biopsy of a clinically suspicious abnormality. [id number] Electronically Signed: Kt Murphy, at 14:03 EDT , Service support ,
== END ==
PROVIDERS: Family Provider Family Medicine; PCP Family Medicine; Referring Provider Obstetrics & Gynecology Gynecology; Visit Provider Obstetrics & Gynecology Gynecology
DX: Z12.31 Encounter for screening mammogram for malignant neoplasm of breast (principal)
CPT/HCPCS: 77063; 77067

== ENCOUNTER 2019-01-29 10:38 | Emergency (ER) | payer OTHER, SELFPAY ==
[2019-01-29 10:39] VITALS: BP 156/87; PULSE 71; RESP 16; TEMP 36.2; O2SAT 99; BMI 27.7
--- NOTE | 2019-01-29 11:05 | ED.VIS.GEN ---
History of Present Illness Chief Complaint: Head Injury Detail of Chief Complaint: Headache, neck pain and nausea Informant: Patient Onset: - Monday Context: Sudden Onset Timing: Continuous Quality: Pain right parietal Location: Right parietal and posterior neck Current Severity: Mild Maximum Severity: Moderate Worsened by: Nothing specific Relieved by: Nothing Associated Symptoms: Nausea Narrative: Patient is a 58-year-old woman who injured her head at work Monday. She states she was pulling a mattress. She slipped hit her head on the frame of the bed. She was dazed. There is no loss conscious. She is on no anticoagulant. She denies paresthesia, anesthesia motor is time of the impact or presently. She denies cardiac respiratory symptoms. She has combined of intermittent nausea. She denies problems with balance. She reports dizziness which she describes as spinning. She was informed this is secondary to concussion. Prior similar symptoms: Yes - Concussion approximate 1 year ago Recent Illness/Hospitalization: No - Past Medical History (1) Acute colitis Status: Acute (2) Hyperlipidemia Status: Chronic (3) Hypertension Status: Chronic (4) Hypothyroidism Status: Chronic (5) Type 2 diabetes mellitus Status: Chronic Past Medical History - Allergies and Home Meds Allergies/Adverse Reactions: Allergies No Known Allergies Allergy (Verified 01/29/19 10:39) Primary Care Physician: Inez Jack DO [Primary Care Provider] - Prior records reviewed: Yes Surgical History: appendectomy, cholecystectomy, hysterectomy, tonsillectomy Lives: Spouse/ Significant Other Smoking Status: Never smoker Alcohol: None Drugs: None - Family History Maternal Family History: Family History (Last Updated 01/29/18 @ 13:31 by Amy Paez) Mother Diabetes Father Diabetes Heart disease Hypertension Hypercholesterolemia Sister Diabetes Brother Diabetes Family History: Reports: No pertinent history Paternal Family History: Family History (Last Updated 01/29/18 @ 13:31 by Amy Paez) Mother Diabetes Father Diabetes Heart disease Hypertension Hypercholesterolemia Sister Diabetes Brother Diabetes Family History: Reports: No pertinent history Review of Systems General: Denies: Chills, Fever, Malaise, Sweats Eyes: Denies: Visual changes - bilaterally, Blurred Vision - bilaterally ENT: Denies: Bilateral ear pain, Rhinorrhea, Sore throat Cardiovascular: Denies: Chest pain, Palpitations Respiratory: Denies: Dyspnea, Dyspnea on exertion Gastrointestinal: Reports: Nausea. Denies: Abdominal pain, Vomiting, Diarrhea Musculoskeletal: Reports: Neck pain. Denies: Myalgias, Arthralgias, Back pain, Swelling, Extremity Pain, -, - Neurological: Reports: Headache. Denies: Weakness, Parasthesia, Numbness, -, - Hematologic: Denies: Easy bruising, Easy bleeding Allergy: Denies: Uticaria, Swelling of the mouth Physical Exam Vital Signs/Narrative: Vital Signs Temp Pulse Resp BP Pulse Ox 01/29/19 10:39 97.1 F L 71 16 156/87 H 99 Inital Vital Signs reviewed: Yes General: Well nourished, Well developed, No Acute Distress Head: Normocephalic, Atraumatic, Tenderness, - - No clinical findings of basilar skull fracture or depressed skull fracture. Eyes: Perrl, EOMI. Negative for: Pale conjunctiva, Scleral icterus ENT: Moist mucous membranes, No rhinorrhea, TM's clear Neck: Supple, No lymphadenopathy, No JVD, - Cardiovascular: Regular rate, Regular rhythm, No murmurs Respiratory: No distress, CTA bilaterally, Chest nontender Abdomen: Soft, Nontender, Nondistended, Normal bowel sounds, No masses Back: Nontender, Normal Inspection Extremities: Nontender, No edema Skin: Normal color, No rash. Negative for: Cyanosis, Diaphoresis, Jaundice, No Trauma Neurological: Alert, Oriented x3, Cranial nerves II-XII grossly intact, Normal Strength, Normal Sensation, Normal DTR, Normal Gait Psychological: Normal affect, Normal Mood Diagnostic/Tx/Re-eval - Medical Decision Making Since history and physical exam is consistent with concussion. Since there are no focal neurologic symptoms with no loss of consciousness and on no anticoagulant per the [place] [facility] CT head rule annual interval imaging is not indicated. Patient has findings consistent with cervical strain. Since there is no midline tenderness x-rays were not obtained. ED Disposition - Plan for ED Patient: Disposition: Home or Assisted Living Diagnosis: Concussion without loss of consciousness, initial encounter, Sprain of cervical neck Instructions: CONCUSSION, No Wake Up, Neck Sprain/Strain Referrals: Inez Jack DO [Primary Care Provider] - As Needed Corporate,Care [GROUP OF PHYSICIANS] - 3-5 Days Additional Instructions: Avoid activity that makes your symptoms worse. Light ice 20 to 30 minutes per application 6-8 times a day. Heat will make your pain worse.
== END 2019-01-29 11:15 | disposition home or self-care (01) ==
PROVIDERS: Emergency Provider Emergency Medicine; Family Provider Family Medicine; PCP Family Medicine
DX: S06.0X0A Concussion without loss of consciousness, initial encounter (principal); S13.4XXA Sprain of ligaments of cervical spine, initial encounter; R11.0 Nausea; W01.190A Fall on same level from slipping, tripping and stumbling with subsequent striking against furniture, initial encounter; Y93.9 Activity, unspecified; Y92.9 Unspecified place or not applicable; Y99.0 Civilian activity done for income or pay; E11.9 Type 2 diabetes mellitus without complications; I10 Essential (primary) hypertension; E78.5 Hyperlipidemia, unspecified; E03.9 Hypothyroidism, unspecified; Z79.82 Long term (current) use of aspirin; Z79.899 Other long term (current) drug therapy; Z90.49 Acquired absence of other specified parts of digestive tract; Z90.710 Acquired absence of both cervix and uterus
CPT/HCPCS: 99282

== ENCOUNTER → 2019-02-01 09:11 | Outpatient (CLI) | payer OTHER, SELFPAY ==
[2018-01-29 13:31] VITALS: BMI 31.4
[2019-01-29 10:39] VITALS: BMI 27.7
[2019-02-01 12:42] LABS: Absolute Lymphocyte Count 1.25 X10^3/uL (0.83-4.51); Absolute Neutrophil Count 4.8 X10^3/uL (2.0-7.7); Basophil# 0.04 X10^3/uL; Basophil% 0.6 % (0-1); Eosinophil# 0.17 X10^3/uL; Eosinophils% 2.5 % (0-5); Hematocrit 45.2 % (37-47); Hemoglobin 13.9 g/dL (12.0-15.0); Lymphocyte # 1.25 X10^3/ul (4.0); Lymphocyte % 18.1 % (19-41); Mean Corp Hgb Conc 30.8 g/dL (32-36); Mean Corpuscular Hgb 31.2 pg (27.0-32.0); Mean Corpuscular Volume 101.3 fL (81-99); Mean Platelet Vol. 10.8 fl (6.2-12.0); Monocyte# 0.61 X10^3/uL; Monocyte% 8.8 % (0-10); NRBC Flagged by Analyzer 0 % (0-5); Neutrophil # 4.83 X10^3/uL (2.7-7.7); Neutrophil % 69.7 % (47-70); Platelet Count 276 K/mm3 (150-450); RBC Distribution Width CV 12.9 % (11.6-14.6); RBC Distribution Width SD 48.5 fl (35.1-43.9); Red Blood Count 4.46 M/mm3 (4.2-5.4); White Blood Count 6.9 K/mm3 (4.4-11.0)
[2019-02-01 13:06] LABS: Hemoglobin A1c 6.1 % (4.2-6.3)
[2019-02-01 13:26] LABS: Microalbumin,Random Urine 6.5 mg/L (NO RANGE EST.)
[2019-02-01 13:28] LABS: AST(SGOT) 23 U/L (15-37); Alanine Aminotransfer ALT/SGPT 42 U/L (13-56); Albumin, Serum 4.1 g/dL (3.2-5.0); Alkaline Phosphatase 72 U/L (45-117); Anion Gap 9 (5-15); BUN 24 mg/dL (7-18); BUN/Creat Ratio 27.1 RATIO (10-20); Calcium,Total 9.4 mg/dL (8.5-10.1); Chloride 110 mmol/L (98-107); Cholesterol 159 mg/dL (200); Creatinine, Serum 0.89 mg/dL (0.55-1.02); EST Glomerular Filtration Rate 70 mL/min (>60); Est Glom Filt Rate - Afr Amer 84 mL/min (>60); Free T3 2.2 pg/mL (2.18-3.98); Glucose 104 mg/dL (74-106); High Density Lipoprotein 49 mg/dL; Potassium 4.8 mmol/L (3.5-5.1); Protein, Total 8.1 g/dL (6.4-8.2); Sodium Level 143 mmol/L (136-145); T4 Free Direct 1.05 ng/dL (0.76-1.46); Thyroid Stim Hormone (TSH) 0.59 uIU/mL (0.358-3.74); Triglycerides 88 mg/dL; Very Low Density Lipoprotein 18 mg/dL (5-40)
== END ==
LOC: LAB.FUTURE 09-11 00:12 → BFHLAB 11-06 15:38
PROVIDERS: Family Provider Family Medicine; PCP Family Medicine; Visit Provider Family Medicine
DX: E11.9 Type 2 diabetes mellitus without complications (principal); E03.9 Hypothyroidism, unspecified; E78.5 Hyperlipidemia, unspecified
CPT/HCPCS: 36415; 80053; 80061; 82043; 82570; 83036; 84439; 84443; 84481; 85025

== ENCOUNTER → 2019-11-07 06:18 | Outpatient (CLI) | payer OTHER, SELFPAY ==
[2019-11-07 07:26] LABS: Absolute Lymphocyte Count 1.18 X10^3/uL (0.83-4.51); Absolute Neutrophil Count 5.9 X10^3/uL (2.0-7.7); Basophil# 0.05 X10^3/uL; Basophil% 0.6 % (0-1); Eosinophil# 0.11 X10^3/uL; Eosinophils% 1.4 % (0-5); Hematocrit 42.4 % (37-47); Hemoglobin 13.2 g/dL (12.0-15.0); Lymphocyte # 1.18 X10^3/ul (4.0); Lymphocyte % 14.9 % (19-41); Mean Corp Hgb Conc 31.1 g/dL (32-36); Mean Corpuscular Hgb 31.1 pg (27.0-32.0); Mean Platelet Vol. 10.2 fl (6.2-12.0); Monocyte# 0.64 X10^3/uL; Monocyte% 8.1 % (0-10); NRBC Flagged by Analyzer 0 % (0-5); Neutrophil # 5.91 X10^3/uL (2.7-7.7); Neutrophil % 74.7 % (47-70); Platelet Count 324 K/mm3 (150-450); RBC Distribution Width CV 13.3 % (11.6-14.6); RBC Distribution Width SD 48.6 fl (35.1-43.9); Red Blood Count 4.24 M/mm3 (4.2-5.4); White Blood Count 7.9 K/mm3 (4.4-11.0)
[2019-11-07 07:36] LABS: AST(SGOT) 32 U/L (15-37); Alanine Aminotransfer ALT/SGPT 57 U/L (13-56); Albumin, Serum 4.1 g/dL (3.2-5.0); Alkaline Phosphatase 107 U/L (45-117); Anion Gap 8 (5-15); BUN 22 mg/dL (7-18); BUN/Creat Ratio 26.1 RATIO (10-20); Calcium,Total 9.5 mg/dL (8.5-10.1); Chloride 103 mmol/L (98-107); Cholesterol 169 mg/dL (200); Creatinine, Serum 0.84 mg/dL (0.55-1.02); EST Glomerular Filtration Rate 74 mL/min (>60); Est Glom Filt Rate - Afr Amer 89 mL/min (>60); Free T3 2.6 pg/mL (2.18-3.98); Globulin 4.2 g/dL (2.2-4.2); Glucose 121 mg/dL (74-106); High Density Lipoprotein 39 mg/dL; Potassium 4.2 mmol/L (3.5-5.1); Protein, Total 8.3 g/dL (6.4-8.2); Sodium Level 139 mmol/L (136-145); Thyroid Stim Hormone (TSH) 1.24 uIU/mL (0.358-3.74); Triglycerides 91 mg/dL; Very Low Density Lipoprotein 18 mg/dL (5-40)
[2019-11-07 07:40] LABS: Microalbumin,Random Urine 5.9 mg/L (NO RANGE EST.); Microalbumin:Creatinine Ratio 7.1 mg/g CRE (<30 mg/g CRE)
[2019-11-07 08:20] LABS: Hemoglobin A1c 6.1 % (3.8-5.6)
== END ==
PROVIDERS: PCP Family Medicine; Referring Provider Family Medicine; Visit Provider Family Medicine
DX: E11.9 Type 2 diabetes mellitus without complications (principal); E03.9 Hypothyroidism, unspecified; E78.5 Hyperlipidemia, unspecified
CPT/HCPCS: 36415; 80053; 80061; 82043; 82570; 83036; 84439; 84443; 84481; 85025

== ENCOUNTER → 2020-01-23 05:46 | Outpatient (CLI) | payer OTHER, SELFPAY ==
[2020-01-23 07:09] LABS: Absolute Lymphocyte Count 2.82 X10^3/uL (0.83-4.51); Absolute Neutrophil Count 7.2 X10^3/uL (2.0-7.7); Basophil# 0.07 X10^3/uL; Basophil% 0.6 % (0-1); Eosinophil# 0.27 X10^3/uL; Eosinophils% 2.4 % (0-5); Hemoglobin 12.5 g/dL (12.0-15.0); Lymphocyte # 2.82 X10^3/ul (4.0); Lymphocyte % 24.8 % (19-41); Mean Corp Hgb Conc 30.5 g/dL (32-36); Mean Corpuscular Hgb 30.4 pg (27.0-32.0); Mean Corpuscular Volume 99.8 fL (81-99); Monocyte# 0.94 X10^3/uL; Monocyte% 8.3 % (0-10); NRBC Flagged by Analyzer 0 % (0-5); Neutrophil # 7.16 X10^3/uL (2.7-7.7); Platelet Count 325 K/mm3 (150-450); RBC Distribution Width CV 13.4 % (11.6-14.6); RBC Distribution Width SD 49.4 fl (35.1-43.9); Red Blood Count 4.11 M/mm3 (4.2-5.4); White Blood Count 11.4 K/mm3 (4.4-11.0)
[2020-01-23 07:53] LABS: BUN 26 mg/dL (7-18); Creatinine, Serum 0.84 mg/dL (0.55-1.02); Glucose 154 mg/dL (74-106)
[2020-01-23 07:54] LABS: ALB/GLOB Ratio 1.1 RATIO (0.9-2.4); AST(SGOT) 13 U/L (15-37); Alanine Aminotransfer ALT/SGPT 39 U/L (13-56); Albumin, Serum 3.6 g/dL (3.2-5.0); Alkaline Phosphatase 84 U/L (45-117); Anion Gap 5 (5-15); BUN/Creat Ratio 31.1 RATIO (10-20); Calcium,Total 9.1 mg/dL (8.5-10.1); Chloride 108 mmol/L (98-107); EST Glomerular Filtration Rate 74 mL/min (>60); Est Glom Filt Rate - Afr Amer 90 mL/min (>60); Globulin 3.4 g/dL (2.2-4.2); Potassium 3.9 mmol/L (3.5-5.1); Sodium Level 141 mmol/L (136-145); T4 Free Direct 1.15 ng/dL (0.76-1.46); Thyroid Stim Hormone (TSH) 1.43 uIU/mL (0.358-3.74)
[2020-01-23 08:26] LABS: Vitamin B12 1266 pg/mL (211-911)
== END ==
PROVIDERS: PCP Family Medicine; Referring Provider Family Medicine; Visit Provider Family Medicine
DX: E11.9 Type 2 diabetes mellitus without complications (principal); E03.9 Hypothyroidism, unspecified; E53.8 Deficiency of other specified B group vitamins; D64.9 Anemia, unspecified
CPT/HCPCS: 36415; 80053; 82607; 84439; 84443; 84481; 85025

== ENCOUNTER → 2020-03-25 09:18 | Outpatient (CLI) | payer OTHER, SELFPAY ==
--- NOTE | 2020-03-25 09:22 | RAD_ITS ---
HISTORY: CHRONIC PAIN FROM BACK TO KNEES, NO KNOWN INJURY Technique: Left Knee; AP, lateral, and oblique radiographs Comparison: None available Findings: No acute fracture or dislocation. Some small osteophytes are present. Patellofemoral joint space may be minimally narrowed. Some enthesophytes present on the dorsum of the patella at the insertion of the quadriceps tendon and the origin of the patellar ligament. Tiny left knee effusion is present. No focal abnormality or radiopaque foreign body is seen in the surrounding soft tissues. RAD/Knee 4 or More Views IMPRESSION: No acute osseous abnormality identified in the knee. at 0551 Reported and signed by: Neri Villanueva MD Electronically Signed: Neri Villanueva MD at 5:50 EDT Tel , Service support ,
--- NOTE | 2020-03-25 09:22 | RAD_ITS ---
HISTORY: CHRONIC PAIN FROM BACK TO KNEES, NO KNOWN INJURY Technique: Right Knee; AP, lateral, and oblique radiographs Comparison: None available Findings: No acute fracture or dislocation. Osseous mineralization, joint spaces, and alignment otherwise appear preserved as imaged. Enthesophytes are present on the dorsum of the patella. A tiny knee effusion is present. No focal abnormality or radiopaque foreign body is seen in the surrounding soft tissues. RAD/Knee 4 or More Views IMPRESSION: No acute osseous abnormality identified in the knee. at 0549 Reported and signed by: Neri Villanueva MD Electronically Signed: Neri Villanueva MD at 5:48 EDT Tel , Service support ,
--- NOTE | 2020-03-25 09:31 | RAD_ITS ---
HISTORY: CHRONIC PAIN FROM BACK TO KNEES, NO KNOWN INJURY COMPARISON: CT scan of the abdomen and pelvis with sagittal and coronal 2-D reformats from January 02, 2018 FINDINGS: # of images incl. paperwork: 5 XR Spine Lumbar Min 4 Views: Dextroscoliosis is present with large bridging osteophyte right laterally at the L1-L2 level. Hemangioma infiltrating through the L1 vertebral body was well demonstrated on the previous CT. Cholecystectomy clips remain. Lumbar vertebral bodies are normal in height. Lumbar disc spaces are well maintained. No acute lumbar spine fracture or subluxation. Degenerative disc disease is present at every level. This is manifested by loss of disc height and cortical endplate sclerosis. Osteophytes are also present. Atherosclerosis within the abdominal aorta persists. Facet arthropathy is present throughout the lumbar spine. RAD/L/S Spine Min 4 Views IMPRESSION: No acute lumbar spine fracture or subluxation. at 0551 Reported and signed by: Neri Villanueva MD Electronically Signed: Neri Villanueva MD at 5:50 EDT Tel , Service support ,
== END ==
PROVIDERS: PCP Family Medicine; Referring Provider Family Medicine; Visit Provider Family Medicine
DX: M54.5 Low back pain (principal); M25.561 Pain in right knee; M25.562 Pain in left knee; G89.29 Other chronic pain
CPT/HCPCS: 72110; 73564

== ENCOUNTER → 2020-05-04 08:29 | Outpatient (CLI) | payer OTHER, SELFPAY ==
[2020-05-04 09:57] LABS: Vitamin B12 > 2000 pg/mL (211-911)
[2020-05-04 10:14] LABS: Free T3 2.2 pg/mL (2.18-3.98); T4 Free Direct 0.91 ng/dL (0.76-1.46); Thyroid Stim Hormone (TSH) 0.77 uIU/mL (0.358-3.74)
== END ==
PROVIDERS: PCP Family Medicine; Referring Provider Family Medicine; Visit Provider Family Medicine
DX: E03.9 Hypothyroidism, unspecified (principal); E53.8 Deficiency of other specified B group vitamins
CPT/HCPCS: 36415; 82607; 84439; 84443; 84481

== ENCOUNTER → 2020-11-17 06:19 | Outpatient (CLI) | payer OTHER, SELFPAY ==
--- NOTE | 2020-11-17 06:32 | MRI_ITS ---
HISTORY: RADICULOPATHY, DISC DEGEN, STENOSIS, ARTHROPATHY. TECHNIQUE: Multiplanar and multisequence MR images of the lumbar spine. IV Contrast dosage and agent: None. # of images incl. paperwork: 152. COMPARISON: XR 03/25/2020, MR 07/26/2017. FINDINGS: VERTEBRAE: Vertebral body heights maintained. Mild degenerative endplate changes without significant bone marrow signal abnormality. ALIGNMENT: No anterior or posterior subluxation. CONUS: Normal morphology and position at T12. Small Tarlov cyst at S2 again noted. SOFT TISSUES: No paraspinal fluid collection. INTERVERTEBRAL DISCS: Multilevel degenerative changes with posterior disc bulge osteophyte complexes and facet arthropathy. T12-L1, L1-2: No significant central canal stenosis or foraminal narrowing. L2-3:Minimal narrowing of thecal sac. Mild bilateral foraminal narrowing. L3-4: Mild central canal stenosis and bilateral foraminal narrowing, similar to prior. L4-5: Minimal narrowing of the thecal sac. Mild bilateral foraminal narrowing. L5-S1: No significant central canal stenosis or foraminal narrowing. MRI/Spine Lumbar (Routine) IMPRESSION: Multilevel degenerative disc disease as described above. at 1414 Reported and signed by: Isatu Rios MD Electronically Signed: Isatu Rios MD at 14:13 EDT Tel , Service support ,
== END ==
PROVIDERS: PCP Family Medicine; Referring Provider Nurse Practitioner Family; Visit Provider Nurse Practitioner Family
DX: M46.96 Unspecified inflammatory spondylopathy, lumbar region (principal); M51.37 Other intervertebral disc degeneration, lumbosacral region; M54.17 Radiculopathy, lumbosacral region; M47.817 Spondylosis without myelopathy or radiculopathy, lumbosacral region; M48.07 Spinal stenosis, lumbosacral region; M41.86 Other forms of scoliosis, lumbar region
CPT/HCPCS: 72148

== ENCOUNTER → 2021-01-05 16:38 | Outpatient (CLI) | payer OTHER, SELFPAY ==
--- NOTE | 2021-01-05 16:40 | RAD_ITS ---
INDICATION: BACK PAIN EXAMINATION/TECHNIQUE: X-RAY - XR Spine Thoracic 3 Views COMPARISON: FINDINGS: Studies of the thoracic spine in 3 projections shows mild levoscoliosis of the lower thoracic spine. Prominent spur formation from DISH is identified. RAD/Thoracic Spine 3 Views IMPRESSION: No acute pathology Electronically Signed: Eze Arvizu DO at 11:01 EDT Tel , Service support ,
== END ==
PROVIDERS: PCP Family Medicine; Referring Provider Anesthesiology Pain Medicine; Visit Provider Anesthesiology Pain Medicine
DX: M54.6 Pain in thoracic spine (principal)
CPT/HCPCS: 72072

== ENCOUNTER → 2021-03-10 | Outpatient (CLI) | payer OTHER, SELFPAY | END | disposition home or self-care (01) | LOC: LABSPEC 03-23 16:29 | PROVIDERS: PCP Family Medicine; Visit Provider Family Medicine | DX: Z20.822 Contact with and (suspected) exposure to COVID-19 (principal) | CPT/HCPCS: 87635; U0005; U0003 ==

== ENCOUNTER 2021-06-22 13:09 | Day surgery (SDC) | payer OTHER, SELFPAY ==
--- NOTE | 2021-06-18 15:00 | HP.PCM_ITS ---
History and Physical Date of Admission: 06/21/21 Chief Complaint: post scs trail decreased pain by 100% History of Present Illness: This is a 60 Y/O female who was seen and evaluated at our office today as a follow up. Pain: mid-lower back,martha hips,martha legs (not at this time) Quality: no pain at this time Region: mid back center and to the right.low back into the martha hips and down martha legs on occasion. Severity: Timing: off and on for years Aggravated by: nothing Relieved by: SCS Pain score (out of 10): 0/10 Other info: Patient is here for a follow up post SCS trial decreased pain by 100%. States she has had no pain since having the SCS trail. States she slept better. States she was able to walk around [employer] without any pain. States this is the best she has felt. States she is able to walk much better. needs refills. Review of Systems: Patient denies any recent fever, chills, headache, change in weight without trying, vision or hearing problems. No cp, sob, collazo, pnd, orthopnea, or peripheral edema.They note no lumps or swollen glands, no new rashes, changing moles, or change in bowel or bladder function. Mood has been fantastic. Past Medical History: h/o Type II Diabetes h/o hypothyroid h/o hyperlipidemia h/o hypertension h/o ischemic colitis h/o allergies h/o Arthritis h/o bone fracture h/o carpal tunnel syndrome h/o gallstones h/o high cholesterol h/o scoliosis h/o anxiety h/o Covid vaccine x2 h/o thrush s/p tonsillectomy 1967 s/p Cholecystectomy s/p Appendectomy s/p hysterectomy s/p sphincterotomy s/p rt leg venous ablation 08/2015 s/p rt carpal tunnel release Family History: ======== Structured Family History ======== Mother: Psychosis, Depression Father: Respiratory disease, Hyperlipidemia, Heart disease, Hypertension, Myocardial infarction Social History: [Tobacco: Former smoker (0 pk yrs / 0 yrs quit) Start Date: 07/17/2020 End Date: 07/17/2020 Pipe Smoker: No Cigar Smoker: No Chewing Tobacco User: No Electronic Cigarette User: No] Living situation: Occupation: Assisted Tobacco: denies EtOH: social Rec. drugs: denial Allergies: Seasonal Medications: 1) albuterol 2.5 mg/3 mL (0.083%) inhalation solution, every 4 hrs prn as directed 2) aspirin 81 mg oral delayed release tablet, Take 1 tablet by mouth once daily 3) baclofen 10 mg oral tablet, 1 PO TID PRN spasms. 4) Breo Ellipta 100 mcg-25 mcg/inh inhalation powder, 1 puff daily as directed 5) gemfibrozil 600 mg oral tablet, Take 1 tablet by mouth 2 times a Day 6) levothyroxine 75 mcg (0.075 mg) oral tablet, Take 1 tablet by mouth once daily 7) Lidocaine patches 8) liothyronine 5 mcg oral tablet, Take 1 tablet by mouth once daily 9) lisinopril-hydrochlorothiazide 10 mg-12.5 mg oral tablet, Take 1 tablet by mouth once daily 10) Lyrica 100 mg oral capsule, 1 capsule po bid 11) magnesium oxide 400 mg (241.3 mg elemental magnesium) oral tablet, Take 1 tablet by mouth once daily 12) montelukast 10 mg oral tablet, Take 1 tablet by mouth every evening 13) Ozempic (1 mg dose) 4 mg/3 mL subcutaneous solution, once a week 14) pantoprazole 40 mg oral delayed release tablet, Take 1 tablet by mouth once daily 15) pravastatin 80 mg oral tablet, Take 1 tablet by mouth once daily 16) Probiotic Formula (Bacillus Coagulans) oral capsule, Take 1 tablet by mouth once daily 17) PT to eval and treat 18) topiramate 100 mg oral tablet, Take 1 tablet by mouth once daily 19) vitamin b12 1000mgm/ml inject, 1ml as directed once monthly 20) Vitamin D3 2000 intl units (50 mcg) oral capsule, Take 1 tablet by mouth once daily 21) Vitamin K1 100 mcg oral tablet, Take 1 tablet by mouth once daily 22) Xray of the thoracic spine, 2-5 views. 23) zinc (as bisglycinate)-copper (as bisglycinate) 25 mg-2 mg oral capsule Physical Examination: Wt: 228 lb Ht/Ln: 69 in BMI: 33.7 BP: 110/69 Pulse: 77 RR: 16 Temp: 97.3F Well nourished and well developed in no acute distress. Alert and oriented to person, place and time. Affect is normal and appropriate. Mucosa pink and moist. Respirations even and unlabored. Neck is supple without significant lymphadenopathy or thyromegaly. Abdomen soft & non-tender. No HSM or masses appreciated. Extremities show no cyanosis, clubbing, or edema. Prior to removal of trail SCS, dressing was dry and intact. Gait is Antalgic. Thoracic ROM is limited due to pain. Thoracic paraspinal muscle tenderness. Bilateral thoracic facet loading is positive. Bilateral lumbar facet loading is positive. Lumbar paraspinal muscle tenderness. Lumbar ROM is limited due to pain. SLR is positive. Motor and sensory exam is unchanged. 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 OARRS was reviewed today. UDS was performed today and will be reviewed on the next encounter to monitor pt medications compliance SOAPP score is 0 Removed the trial SCS, leads intact upon removal, sutures removed, area cleaned, bandage applied, no redness or edema noted. instructions given for post care at home of incision sites. MRI of the lumbar spine was reviewed with the pt today and they appear to understand. Xray of the thoracic spine was reviewed with the pt today and they appear to understand There are no signs of diversion or addiction with the pt, there is also no signs of abuse or misuse, continues to do well with their medications without any side effects, we will continue monitoring the pt closely. Risks and benefits of the above meds were discussed with the pt and they appear to understand. The common side effects of the medications were discussed and all of their questions and concerns were answered and they appear to understand Discussed natural and expected course of this diagnosis and need to alert me if symptoms do not follow expected course, or if any worse. Pt is to continue with her HEP. Pt has tried multiple modalities with no success, we will schedule the pt for a permanent spinal cord stimulator at the thoracolumbar area X2 leads under fluoroscopy. We have discussed the risks, benefits as well as alternatives of the procedure and the patient appears to understand and would like to proceed with the above plan. The above plan was discussed today with the pt in details and they appear to understand and agrees to continue with the plan.
[2021-06-22] VITALS (7 sets, daily range): BP systolic 127–135; BP diastolic 76–95; PULSE 71–94; RESP 16–18; TEMP 35.7–36.6; O2SAT 96–100; BMI 33.8
[2021-06-22 14:21] LABS: Bedside Glucose 80 mg/dL (70-110)
[2021-06-22] MEDS: Lactated Ringers 1,000 ML 15 ML IV (14:22)
--- NOTE | 2021-06-22 15:30 | RAD_ITS ---
PROCEDURE: 2-lead spinal cord stimulator placement. DATE OF EXAMINATION: 06/22/2021 INDICATION: Female, 60 years old. Chronic back pain FLUOROSCOPY TIME (if supplied): (110.2 seconds) minutes/seconds. 9 images were obtained. The patient is status post 2-lead spinal cord stimulator placement. The tip of the electrodes is at the T7-T8 level. RAD/Lumbar Spine 2 or 3 Views IMPRESSION: The tip of the spinal cord stimulator electrodes is at the T7-T8 level. Electronically Signed: Kt Murphy MD at 10:03 EST , Service support ,
[2021-06-22] MEDS: Cefazolin 2 GM in 0.9% Normal Saline 100 ML IV (16:08)
[2021-06-22] MEDS: Bupivacaine 0.25% 30 ML Vial (17:00)
[2021-06-22] MEDS: Lidocaine 2% (20 ml mdv) 20 ML Vial (17:00)
[2021-06-22] MEDS: BACITRACIN/POLYMYXIN B 15 GM Tube 1 APPLIC (17:00)
--- NOTE | 2021-06-22 17:26 | OP.PCM_ITS ---
Operative Report Date of Procedure: 06/22/21 Pre-Operative Diagnosis: Lumbosacral radiculopathy, lumbosacral degenerative disc disease, lumbosacral spinal stenosis Post-Operative Diagnosis: Lumbosacral radiculopathy, lumbosacral degenerative disc disease, lumbosacral spinal stenosis Surgery/Procedure Performed:: 1. Spinal cord stimulator thoracolumbar leads placement x2 #2 spinal cord stimulator Medtronic intellus adaptive stim generator placement #3 spinal cord stimulator generator pocket creation at the right gluteal region #4 spinal cord stimulator complex programming, 5- intraoperative fluoroscopic interpretation ANESTHESIA: MAC COMPLICATIONS: None BLOOD LOSS: Minimal Implanted device: Spinal cord stimulator lead [id number] lot number [id number], lead #2 [id number] lot number [id number] Medtronic spinal cord stimulator generator intellus serial number [id number] PROCEDURE IN DETAIL: History and physical of today was reviewed. Risks and benefits of the procedure were explained. The patient understood, agreed to the procedure, informed consent was obtained. IV inserted per routine protocol. The patient was taken to the operating room, placed in the prone position with a pillow positioned underneath the abdomen. A 2 gm of Ancef IV piggyback was infused per anesthesia prior to incision. The lower back and right gluteal area was prepped and draped in a sterile fashion using iodine x3 Ioban was placed. The C-arm was brought in position for AP view at the T12-L2 vertebral bodies under direct visualization fluoroscopy on a true AP view the T12-L2 interlaminar space was identified skin and subcutaneous tissue and size approximately 10 cc of a mix of 2% lidocaine and 0.25% Marcaine using a 25-gauge regular needle followed by a 25-gauge 3-1/2 inch spinal needle towards the interlaminar space at T12-L1 from the left paramedian approach, the skin and subcutaneous tissue were then anesthetized and using an 11-gauge blade was then taken down to the skin and subcutaneous tissue using a 14-gauge 3 1/2 inch Touhy needle provided by the [employer] kit the needle was passed through the skin towards the interlaminar space at T12-L1 and a paramedian approach the needle was then advanced under direct visualization fluoroscopy towards the interlaminar space at T12-L1 [id number] te chnique was then carried to air towards the interlaminar space at T12-L1 once the tip of the needle was in the epidural space and loss of resistance was encountered to air and after confirmation of AP as well as oblique view of the spinal cord stimulator lead was then advanced under direct visualization fluoroscopy to be at the tip of the lead at tip of T8 and the bottom of the lead around mid T10 after confirmation of AP as well as lateral view to confirm correct placement of the lead in the posterior compartment of the epidural space the previous procedure was then repeated to a level at T12-L1 interlaminar space on the right paramedian approach, the needle was then redirected after repeated confirmation with [id number] technique and confirmation on AP as well as lateral view , the second lead was then inserted under direct visualization with fluoroscopy to be at the tip T8 and mid T10 area to the right of the previously inserted lead, the leads were were then connected to the external neurostimulator and patient was then awakened to confirm satisfactory coverage of the painful area once satisfactory coverage was then achieved the stylette of each needle was then removed and the skin and subcutaneous tissue on to the left of the paramedian needles was then taken anesthetized with a total of 10 cc of the previous mixture of 0.25% Marcaine and 2% lidocaine using a 25-g auge regular needle the incision was then taken down through the skin and subcutaneous tissue towards the fascia making sure hemostasis was then maintained via cautery, the spinal cord stimulator leads were then passed through the above incision and secured using the biwing and sutured down with a 2-0 silk to the fascia at that level the spinal cord stimulator leads were then tunneled via a tunneler provided by the [employer] kit towards the previously incised spinal cord stimulator battery at the right gluteal region skin and subcutaneous tissue were anesthetized with approximately 10 cc of a mix of 2% lidocaine and 0.25% Marcaine using a 25 gauge regular needle, skin and subcutaneous tissue was then taken down with the 11-gauge blade hemostasis was maintained with Bovie and direct pressure the incision was then taken down to the fascia and the battery was then secured with the 2-0 silk sutures that were the spinal cord stimulator leads the upper lead was then marked the new until spinal cord stimulator battery was then provided Via [employer] kit the battery was then reattached of the spinal cord stimulator make ensure that the top lead is attached to the top position from 0-7 electrodes and the bottom from 8-15 electrodes once impedance was then checked to be in the proper average number the intellus battery was then inserted into the pocket and impedance was then checked again the pocket was then inspected to confirm hemostasis in place, the intellus battery was then protected with a tyrx antibacterial pouch and then secured to the fascia using a 2-0 silk to the upper eyes of the battery confirming an upward posterior facing writing of the intellus facing posterior, once complete confirmation was obtained, the battery was then placed in the position and the the mid paramedians and the gluteal incisions were then closed primarily through a 3-0 Vicryl in a running fashion followed by a 4-0 Monocryl to the skin, hemostasis was maintained during the procedure via Bovie as well as pressure, the skin was then covered with a Steri-Strips and bacitracin and a sterile fashion patient was then returned into the supine position in a stable condition and returned to recovery in a stable condition, patient experienced no signs or symptoms of intrathecal or intravascular injection patient experienced no paresthesia the procedure was completed without any apparent difficulty or any complication the patient appeared to tolerate the procedure well, motor as well as sensory function was unchanged from prior to the procedure ESTIMATED BLOOD LOSS: Minimal less than 25 mL ASSESSMENT AND PLAN: This is a 60-year-old female with lumbosacral radiculopathy, lumbosacral degenerative disc disease and lumbosacral spinal stenosis status post 1. Spinal cord stimulator thoracolumbar leads placement x2 #2 spinal cord stimulator Medtronic intellus generator placement #3 spinal cord stimulator generator pocket creation at the right gluteal region #4 spinal cord stimulator complex programming, 5-intraoperative fluoroscopic interpretation patient will continue her current medications a prescription was provided to the patient Keflex 500 mg 1 p.o. every 8 hours for 7 days, Percocet 5-325 mg 1 p.o. every 6 hours for postoperative pain, postop instruction were given in writing to the patient and her as well as verbally and in writing, patient will follow appro ximately 1 week for reevaluation
== END 2021-06-22 23:59 | disposition home or self-care (01) ==
LOC: SDC 13:12 → AC 13:38
PROVIDERS: PCP Family Medicine; Referring Provider Anesthesiology Pain Medicine; Visit Provider Anesthesiology Pain Medicine
PROC: (CPT 63685; principal; 2021-06-22 15:15)
DX: M51.17 Intervertebral disc disorders with radiculopathy, lumbosacral region (principal); E11.9 Type 2 diabetes mellitus without complications; M48.07 Spinal stenosis, lumbosacral region; E78.00 Pure hypercholesterolemia, unspecified; I10 Essential (primary) hypertension; Z79.899 Other long term (current) drug therapy; Z87.891 Personal history of nicotine dependence
CPT/HCPCS: 63685; 63650; 00300; 72100; 76000; 82962; C1778; C1820; J7120; J2405

== ENCOUNTER 2021-07-06 08:17 | Outpatient (RCR) | payer OTHER, SELFPAY ==
--- NOTE | 2021-07-06 10:11 | HP.FCE ---
Comments: pt is currently on surgical precautions of lifting no greater than 5# for 8 weeks. Pt is currently on surgical precautions of no bending at waist for 8 weeks. Bending: No Ablility (0% of day) Comments: post op sx precautions for 8 weeks Squatting: Occasional Ability (1-33% of day) Comments: low occasional due to post op precautions Kneeling: Occasional Ability (1-33% of day) Comments: low occasional due to post op precautions Reaching out: Frequent Ability (34-66% of day) Reaching up: Frequent Ability (34-66% of day) Sitting: Frequent Ability (34-66% of day) Walking: Occasional Ability (1-33% of day) Standing: Occasional Ability (1-33% of day) Duration Sedentary Sedentary Light Light Light Medium Medium Medium Heavy Very Heavy Heavy Occasional (0-33% of day) Frequent (34-66% of day) Constant (67-100% of day) 10 # Negligible Negligible 15 # 8 # Negligible 20 # 10# Negli. 35 # 18 # 7 # 50 # 25 # 10 # 75 # 100 # >100 # 38 # 50 # >50 # 15 # 20 # >20 # Weight:: 104.326 kg Hand Dominance: right Medical History Including Restrictions: pt with recent nerve stimulator placed on 06/22/21. pst surgical restrictions for 8 weeks NO Bending at the waist. NO lift greater than 5#. for 8 weeks. Surgical procedure was Spinal cord stimulator thoracolumbar leads placement x2 #2 spinal cord stimulator Medtronic intellus adaptive stim generator placement #3 spinal cord stimulator generator pocket creation at the right gluteal region #4 spinal cord stimulator complex programming, 5-intraoperative fluoroscope. pt states she had difficulty in her 30s with back pain- pt states 2019 she became very painful- went to her for x-ray - pursed pain mtg and after discussion with spine surgeon and found out she was not a surgical options and spine stimulator would be more beneficial pt decided to have sx. pt is happy with her results. pt did exercise on regular basis. Diagnoses: Lumbosacral radiculopathy,. lumbosacral degenerative disc disease,. lumbosacral spinal stenosis. scoliosis of lumbar spine. Arthropathy of lumbar facet. Acute colitis. Acute colitis of the left hemicolon. Hyperlipidemia. Hypertension. Hypothyroidism. Type 2 diabetes mellitus Symptoms: low back pain. right leg pain. bilateral leg weakness. Pain: pt states 0/10 pain (nerve stimulation is doing what she can do) Work History: pt states she has worked for the [employer] since 1995. 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 Pt states she has industry tubs full of laundry and place in washer and dryer. 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 pt states she does not know what her lifting requirement is. pt states she works 40 hours a week and 8 hour shifts with rest breaks. when surgical precautions are lifted pt anticipates returning to her regular job duties. Behavioral: pt was cooperative throughout the session and put good effort forward. ADLS: Pt lives with her in a two story home with no entry steps. pt states bathroom is on 1st floor and 2nd floor has bedroom and another bathroom. pt states the she uses a tub shower combination - stands for shower- Currently is assisting with LB dressing as she can not bend at the waist for [address] but has not driven since her spine stimulator 06/22/21- pt states she has one handrail going up her stairs to her bedroom. pt states until her lifting restrictions are lifted her is assisting with all cooking, cleaning and laundry tasks. ROM: pt demo bilateral UE ROM is WNL. pt demo bilateral LE R)M is WNL. pt on restrictions of no lumbar bending (this was not tested) Strength: pt demo UE MMT 4+/5. pt demo LB MMT 4+/5 Right Front End Architect Strength Average: 61.66 Right Front End Architect Strength Percentile: 63% Left Front End Architect Strength Average: 40.00 Left Front End Architect Strength Percentile: 22% Right Lateral Pinch Average: 12.00 Right Lateral Pinch Percentile: 50% Left Lateral Pinch Average: 10.00 Left Lateral Pinch Percentile: 25% Right Tripod Pinch Average: 8.00 Right Tripod Pinch Percentile: 10% Left Tripod Pinch Average: 6.00 Left Tripod Pinch Percentile: <10% Sensation: denies Fine Motor: denies Balance: pt demo with good-normal balance Bending: No Ability until surgery precautions/restrictions are lifted Squatting: pt demo the ability to squat 3/3x with use of external support-. pt can squat on a low occasional ability with use of external support until surgery precautions are lifted in 8 weeks. Kneeling: No Ability until surgery precautions/restrictions are lifted. Reaching out/up: pt demo the ability to reach out/up 3/3x , 10/10x and 10/10x rapidly-. pt completed while sitting. pt can reach out/out on a frequent ability Walking: pt demo the ability to ambulate 12 min at a reciprocal gait pattern and good speed. Standing: pt demo standing 6 min with shifting body wt.- pt can stand on low occasional ability until surgery precautions/restrictions are lifted. Sitting: pt demo the ability to sit for 45 min with no expressed or apparent discomfort- pt can sit on a frequent ability Climbing Stairs: pt demo the ability to ascend and descend 10 steps with a reciprocal step pattern and use of one hand rail with good ability. Carrying: No ability to carry greater than 5# until surgery precautions/restrictions are lifted Comments: No Ability to lift greater than 5 pounds until surgery precautions/restrictions are lifted
--- NOTE | 2021-07-06 10:11 | HP.OTFCE.D ---
FCE D/C Summary - Discharge BRITTNY WADE was seen for a one time visit for an FCE on 07/06/21 and is discharged.
== END 2021-07-06 19:00 | disposition home or self-care (01) ==
LOC: OT 08:17
PROVIDERS: PCP Family Medicine; Visit Provider Nurse Practitioner Family
DX: M51.37 Other intervertebral disc degeneration, lumbosacral region (principal); M46.96 Unspecified inflammatory spondylopathy, lumbar region; M47.817 Spondylosis without myelopathy or radiculopathy, lumbosacral region; M54.17 Radiculopathy, lumbosacral region; M48.07 Spinal stenosis, lumbosacral region; M41.86 Other forms of scoliosis, lumbar region
CPT/HCPCS: 97750

== ENCOUNTER 2021-08-13 11:14 | Outpatient (CLI) | payer OTHER, SELFPAY ==
--- NOTE | 2021-08-13 11:18 | RAD_ITS ---
STUDY: X-RAY - CERVICAL SPINE REASON FOR EXAM: Female, 60 years old. NECK PAIN TECHNIQUE: 5 view(s) of the cervical spine were obtained. COMPARISON: None FINDINGS: Normal anterior atlantoaxial articulation. Normal odontoid process. There is straightening of the normal cervical lordosis. There is multi-level endplate spondylosis. There is multi-level degenerative disc disease with multilevel disc space narrowing. There is multi-level osseous foraminal stenosis. The soft tissue structures are unremarkable. RAD/Cerv Spine 4 or 5 Views IMPRESSION: Age consistent degenerative changes, no acute findings Electronically Signed: David Loya MD at 13:39 EST ,
== END 2021-08-13 23:59 | disposition home or self-care (01) ==
LOC: MTRAD 11:16
PROVIDERS: PCP Family Medicine; Referring Provider Family Medicine; Visit Provider Family Medicine
DX: M54.2 Cervicalgia (principal)
CPT/HCPCS: 72050

== ENCOUNTER → 2021-11-25 | Outpatient (CLI) | payer OTHER, SELFPAY ==
[2021-11-25 17:44] LABS: Erythrocyte Sedimentation Rate 42 mm/hr (0-30)
[2021-11-25 17:55] LABS: CRP 4.84 mg/L (0.0-3.0); Ferritin 226 ng/mL (8-252); Iron 63 ug/dL (50-170); Rheumatoid Factor < 10.0 IU/mL (<15)
[2021-11-29 15:40] LABS: ANTINUCLEAR ANTIBODIES DIRECT Negative (Negative)
[2021-11-30 04:07] LABS: Endomysial Antibody IgA Negative (Negative); Immunoglobulin A 188 mg/dL (87-352)
[2021-11-30 07:54] LABS: CCP IgG Antibodies < 1 units (0-19); t-Transglutaminase IgA 3 U/mL (0-3)
== END | disposition home or self-care (01) ==
LOC: MTLAB 15:04
PROVIDERS: PCP Family Medicine; Referring Provider Family Medicine; Visit Provider Family Medicine
DX: M25.50 Pain in unspecified joint (principal); R35.89 Other polyuria; R19.7 Diarrhea, unspecified; D64.9 Anemia, unspecified; R30.0 Dysuria
CPT/HCPCS: 36415; 82728; 82784; 83516; 83540; 85652; 86038; 86140; 86200; 86225; 86235; 86255; 86431; 87086

== ENCOUNTER → 2022-01-24 | Outpatient (CLI) | payer OTHER, SELFPAY ==
--- NOTE | 2022-01-24 15:14 | RAD_ITS ---
STUDY: X-RAY - LEFT KNEE REASON FOR EXAM: Female, 61 years old. PAIN TECHNIQUE: 4 view(s) of the knee. COMPARISON: 03/25/2020 FINDINGS: Normal visualized distal femur. Normal visualized proximal tibia and fibula. Normal proximal tibiofibular articulation. There is mild degenerative arthrosis of the medial femorotibial compartment. There is mild degenerative arthrosis of the lateral femorotibial compartment. There is mild degenerative arthrosis of the patellofemoral articulation. The soft tissue structures are unremarkable. RAD/Knee 4 or More Views IMPRESSION: Degenerative arthrosis. Electronically Signed: Fernando Nunn MD at 17:10 EDT ,
== END | disposition home or self-care (01) ==
LOC: MTRAD 15:13
PROVIDERS: PCP Family Medicine; Referring Provider Family Medicine; Visit Provider Family Medicine
DX: M25.562 Pain in left knee (principal)
CPT/HCPCS: 73564

== ENCOUNTER → 2022-03-11 | Outpatient (CLI) | payer OTHER, SELFPAY ==
[2022-03-11 12:12] LABS: Absolute Neutrophil Count 5.6 X10^3/uL (2.0-7.7); Basophil# 0.03 X10^3/uL; Basophil% 0.4 % (0-1); Eosinophil# 0.09 X10^3/uL; Eosinophils% 1.3 % (0-5); Lymphocyte % 12.8 % (19-41); Mean Corp Hgb Conc 31.8 g/dL (32-36); Mean Corpuscular Hgb 31.9 pg (27.0-32.0); Mean Corpuscular Volume 100.2 fL (81-99); Mean Platelet Vol. 11.4 fl (6.2-12.0); Monocyte# 0.39 X10^3/uL; Monocyte% 5.5 % (0-10); NRBC Flagged by Analyzer 0 % (0-5); Neutrophil # 5.61 X10^3/uL (2.7-7.7); Neutrophil % 79.7 % (47-70); Platelet Count 237 K/mm3 (150-450); RBC Distribution Width CV 13.2 % (11.6-14.6); RBC Distribution Width SD 49.1 fl (35.1-43.9); Red Blood Count 4.39 M/mm3 (4.2-5.4)
[2022-03-11 12:27] LABS: Microalbumin,Random Urine 12.3 mg/L (NO RANGE EST.)
[2022-03-11 12:44] LABS: ALB/GLOB Ratio 0.9 RATIO (0.9-2.4); AST(SGOT) 115 U/L (15-37); Alanine Aminotransfer ALT/SGPT 127 U/L (13-56); Albumin, Serum 4.1 g/dL (3.2-5.0); Alkaline Phosphatase 88 U/L (45-117); Anion Gap 7 (5-15); BUN 16 mg/dL (7-18); BUN/Creat Ratio 21.5 RATIO (10-20); Calcium,Total 9.9 mg/dL (8.5-10.1); Chloride 106 mmol/L (98-107); Cholesterol 162 mg/dL (200); Creatinine, Serum 0.74 mg/dL (0.55-1.02); EST Glomerular Filtration Rate 84 mL/min (>60); Est Glom Filt Rate - Afr Amer 102 mL/min (>60); Free T3 2.4 pg/mL (2.18-3.98); Globulin 4.5 g/dL (2.2-4.2); Glucose 102 mg/dL (74-106); High Density Lipoprotein 31 mg/dL; Potassium 4.2 mmol/L (3.5-5.1); Protein, Total 8.6 g/dL (6.4-8.2); Sodium Level 141 mmol/L (136-145); Thyroid Stim Hormone (TSH) 1.01 uIU/mL (0.358-3.74); Triglycerides 143 mg/dL; Very Low Density Lipoprotein 29 mg/dL (5-40)
[2022-03-11 14:08] LABS: Hemoglobin A1c 6.8 % (3.8-5.6)
== END | disposition home or self-care (01) ==
LOC: MTLAB 09:51
PROVIDERS: PCP Family Medicine; Referring Provider Family Medicine; Visit Provider Family Medicine
DX: E11.9 Type 2 diabetes mellitus without complications (principal); E03.9 Hypothyroidism, unspecified; E78.5 Hyperlipidemia, unspecified
CPT/HCPCS: 36415; 80053; 80061; 82043; 82570; 83036; 84439; 84443; 84481; 85025

== ENCOUNTER → 2022-05-06 | Outpatient (CLI) | payer OTHER, SELFPAY ==
--- NOTE | 2022-05-06 07:55 | BI_ITS ---
MAMMOGRAPHY - BILATERAL SCREENING REASON FOR EXAM: Female, 61 years old. Routine annual screening examination. PERTINENT HISTORY: Aunt with breast cancer. TECHNIQUE: Digital bilateral breast stefano (3D mammographic acquisition) in the CC and MLO projections. 2-D mediolateral oblique (MLO) and craniocaudad (CC) views of both breasts were obtained. CAD: Full Field Digital Mammography with Computer Added Detection was performed. COMPARISON: Comparison is made with prior study dated 10/19/2018 and 12/27/2017. FINDINGS: Breast Composition: The breasts are almost entirely fatty. There are no dominant masses or suspicious calcifications. No other significant abnormalities are identified. There has been no significant change since the prior study. BI/SCRN MAMM (CAD)W/STEFANO BILAT IMPRESSION: Stable bilateral screening mammogram. Yearly follow-up mammogram recommended. (A) ASSESSMENT CATEGORY: BIRADS Category 1: Negative. A letter regarding these results will be sent to the patient by the facility within 30 days. Approximately 10% of breast cancers are not detected by mammography. A normal mammogram should not delay biopsy of a clinically suspicious abnormality. [id number] Electronically Signed: Kt Murphy MD at 9:09 EST ,
[2022-05-06 12:56] LABS: AST(SGOT) 79 U/L (15-37); Alanine Aminotransfer ALT/SGPT 108 U/L (13-56); Alkaline Phosphatase 84 U/L (45-117); Anion Gap 6 (5-15); BUN 20 mg/dL (7-18); BUN/Creat Ratio 26.9 RATIO (10-20); Calcium,Total 9.8 mg/dL (8.5-10.1); Chloride 107 mmol/L (98-107); Creatinine, Serum 0.74 mg/dL (0.55-1.02); EST Glomerular Filtration Rate 84 mL/min (>60); Est Glom Filt Rate - Afr Amer 102 mL/min (>60); Globulin 4.1 g/dL (2.2-4.2); Glucose 132 mg/dL (74-106); Potassium 4.3 mmol/L (3.5-5.1); Protein, Total 8.1 g/dL (6.4-8.2); Sodium Level 141 mmol/L (136-145)
== END | disposition home or self-care (01) ==
PROVIDERS: PCP Family Medicine; Visit Provider Family Medicine
DX: Z12.31 Encounter for screening mammogram for malignant neoplasm of breast (principal); R74.01 Elevation of levels of liver transaminase levels; Z51.81 Encounter for therapeutic drug level monitoring
CPT/HCPCS: 36415; 77063; 77067; 80053

== ENCOUNTER → 2022-07-28 | Outpatient (CLI) | payer OTHER, SELFPAY ==
[2022-07-28 12:35] LABS: ALB/GLOB Ratio 0.9 RATIO (0.9-2.4); AST(SGOT) 23 U/L (15-37); Alanine Aminotransfer ALT/SGPT 28 U/L (13-56); Albumin, Serum 3.6 g/dL (3.2-5.0); Alkaline Phosphatase 83 U/L (45-117); Anion Gap 5 (5-15); BUN 22 mg/dL (7-18); BUN/Creat Ratio 28.1 RATIO (10-20); Calcium,Total 9.5 mg/dL (8.5-10.1); Chloride 108 mmol/L (98-107); Creatinine, Serum 0.78 mg/dL (0.55-1.02); EST Glomerular Filtration Rate 79 mL/min (>60); Est Glom Filt Rate - Afr Amer 96 mL/min (>60); Globulin 3.9 g/dL (2.2-4.2); Glucose 108 mg/dL (74-106); Potassium 4.1 mmol/L (3.5-5.1); Protein, Total 7.5 g/dL (6.4-8.2); Sodium Level 140 mmol/L (136-145)
== END | disposition home or self-care (01) ==
LOC: BFHLAB 10:11
PROVIDERS: PCP Family Medicine; Visit Provider Family Medicine
DX: R74.8 Abnormal levels of other serum enzymes (principal); Z51.81 Encounter for therapeutic drug level monitoring
CPT/HCPCS: 36415; 80053

== ENCOUNTER → 2023-04-13 | Outpatient (CLI) | payer OTHER, SELFPAY ==
[2023-04-13 12:08] LABS: Absolute Neutrophil Count 6.1 X10^3/uL (2.0-7.7); Basophil# 0.04 X10^3/uL; Basophil% 0.5 % (0-1); Eosinophil# 0.07 X10^3/uL; Eosinophils% 0.9 % (0-5); Hematocrit 44.9 % (37-47); Hemoglobin 13.7 g/dL (12.0-15.0); Lymphocyte % 14.9 % (19-41); Mean Corp Hgb Conc 30.5 g/dL (32-36); Mean Corpuscular Hgb 30.1 pg (27.0-32.0); Mean Corpuscular Volume 98.7 fL (81-99); Monocyte# 0.62 X10^3/uL; Monocyte% 7.7 % (0-10); NRBC Flagged by Analyzer 0 % (0-5); Neutrophil % 75.6 % (47-70); Platelet Count 275 K/mm3 (150-450); RBC Distribution Width CV 13.3 % (11.6-14.6); RBC Distribution Width SD 48.1 fl (35.1-43.9); Red Blood Count 4.55 M/mm3 (4.2-5.4); White Blood Count 8.1 K/mm3 (4.4-11.0)
[2023-04-13 12:24] LABS: ALB/GLOB Ratio 0.9 RATIO (0.9-2.4); AST(SGOT) 20 U/L (15-37); Alanine Aminotransfer ALT/SGPT 30 U/L (13-56); Albumin, Serum 3.8 g/dL (3.2-5.0); Alkaline Phosphatase 109 U/L (45-117); Anion Gap 3 (5-15); BUN 21 mg/dL (7-18); BUN/Creat Ratio 25.6 RATIO (10-20); Calcium,Total 9.5 mg/dL (8.5-10.1); Chloride 108 mmol/L (98-107); Cholesterol 172 mg/dL (200); Creatinine, Serum 0.82 mg/dL (0.55-1.02); EST Glomerular Filtration Rate 75 mL/min (>60); Est Glom Filt Rate - Afr Amer 91 mL/min (>60); Free T3 2.2 pg/mL (2.18-3.98); Globulin 4.1 g/dL (2.2-4.2); Glucose 117 mg/dL (74-106); High Density Lipoprotein 47 mg/dL; Potassium 4.7 mmol/L (3.5-5.1); Protein, Total 7.9 g/dL (6.4-8.2); Sodium Level 139 mmol/L (136-145); T4 Free Direct 0.97 ng/dL (0.76-1.46); Thyroid Stim Hormone (TSH) 1.44 uIU/mL (0.358-3.74); Triglycerides 72 mg/dL; Very Low Density Lipoprotein 14 mg/dL (5-40)
[2023-04-13 12:40] LABS: Microalbumin,Random Urine 7.3 mg/L (NO RANGE EST.)
== END | disposition home or self-care (01) ==
LOC: BFHLAB 09:50
PROVIDERS: PCP Family Medicine; Visit Provider Family Medicine
DX: E03.9 Hypothyroidism, unspecified (principal); E11.9 Type 2 diabetes mellitus without complications; E78.5 Hyperlipidemia, unspecified
CPT/HCPCS: 36415; 80053; 80061; 82043; 82570; 84439; 84443; 84481; 85025

== ENCOUNTER → 2023-07-13 | Outpatient (CLI) | payer OTHER, SELFPAY ==
[2023-07-13 12:28] LABS: Absolute Lymphocyte Count 1.62 X10^3/uL (0.83-4.51); Absolute Neutrophil Count 7.2 X10^3/uL (2.0-7.7); Basophil# 0.09 X10^3/uL; Basophil% 0.9 % (0-1); Eosinophil# 0.21 X10^3/uL; Eosinophils% 2.1 % (0-5); Hematocrit 42.6 % (37-47); Lymphocyte # 1.62 X10^3/ul (0.83-4.51); Lymphocyte % 16.3 % (19-41); Mean Corp Hgb Conc 30.5 g/dL (32-36); Mean Corpuscular Hgb 30.2 pg (27.0-32.0); Mean Corpuscular Volume 98.8 fL (81-99); Mean Platelet Vol. 10.8 fl (6.2-12.0); Monocyte# 0.73 X10^3/uL; Monocyte% 7.4 % (0-10); NRBC Flagged by Analyzer 0 % (0-5); Neutrophil % 72.5 % (47-70); Platelet Count 284 K/mm3 (150-450); RBC Distribution Width CV 13.6 % (11.6-14.6); RBC Distribution Width SD 49.7 fl (35.1-43.9); Red Blood Count 4.31 M/mm3 (4.2-5.4); White Blood Count 9.9 K/mm3 (4.4-11.0)
[2023-07-13 13:37] LABS: ALB/GLOB Ratio 1.1 RATIO (0.9-2.4); AST(SGOT) 20 U/L (15-37); Alanine Aminotransfer ALT/SGPT 35 U/L (13-56); Albumin, Serum 3.8 g/dL (3.2-5.0); Alkaline Phosphatase 100 U/L (45-117); Anion Gap 5 (5-15); BUN 26 mg/dL (7-18); Calcium,Total 9.1 mg/dL (8.5-10.1); Chloride 110 mmol/L (98-107); Creatinine, Serum 0.79 mg/dL (0.55-1.02); EST Glomerular Filtration Rate 79 mL/min (>60); Est Glom Filt Rate - Afr Amer 95 mL/min (>60); Free T3 2.5 pg/mL (2.18-3.98); Globulin 3.4 g/dL (2.2-4.2); Glucose 149 mg/dL (74-106); Potassium 4.3 mmol/L (3.5-5.1); Protein, Total 7.2 g/dL (6.4-8.2); Sodium Level 140 mmol/L (136-145); T4 Free Direct 1.05 ng/dL (0.76-1.46); Thyroid Stim Hormone (TSH) 1.98 uIU/mL (0.358-3.74)
== END | disposition home or self-care (01) ==
LOC: BFHLAB 09:33
PROVIDERS: PCP Family Medicine; Visit Provider Family Medicine
DX: E03.9 Hypothyroidism, unspecified (principal); E11.9 Type 2 diabetes mellitus without complications
CPT/HCPCS: 36415; 80053; 84439; 84443; 84481; 85025

== ENCOUNTER → 2023-07-19 | Outpatient (CLI) | payer OTHER, SELFPAY ==
--- NOTE | 2023-07-19 08:59 | RAD_ITS ---
STUDY: X-RAY CHEST REASON FOR EXAM: Female, 62 years old. COUGH -- STAT TECHNIQUE: PA and lateral views of the chest. COMPARISON: Comparison is made with prior examination dated generally 22/01/2019. FINDINGS: There is hyperinflation of the lungs consistent with chronic obstructive lung disease (COPD). Scattered calcified granulomas. There is no demonstrated pleural abnormality. Normal size heart. Normal mediastinum and sasha. Normal visualized pulmonary arteries. Normal visualized aortic arch and descending thoracic aorta. There are diffuse degenerative changes of the visualized thoracic spine. Electrodes from a spinal cord stimulator device are seen with the tip at the T7-T8 level. Normal visualized ribs, clavicles, and shoulders. There is no demonstrated abnormality of the visualized soft tissue structures of the upper abdomen. RAD/Chest PA and Lateral IMPRESSION: Hyperinflation. The lungs are clear. Electronically Signed: Kt Murphy MD at 9:27 EST ,
--- OUTSIDE RECORDS SUMMARY | 2023-07-19 09:21 | XMS RPT_ITS | CCD ---
Author Name Unknown Address [address] [facility] [address] [place] [address] Organization [facility] Care Team Providers Care Quartz Mounter Name Role Phone LILIAM, JETHRO PAC Unavailable Unavailable LILIAM, JETHRO PAC Unavailable Unavailable LILIAM, JETHRO PAC Unavailable Unavailable RAN TURNER DR Unavailable Unavailable RAN TURNER DR Unavailable Unavailable RAN TURNER DR Unavailable Unavailable Niall Angel Admitting Unavailable Niall Angel Attending Unavailable Guero, Inez A Primary Care Unavailable PendHusam jessica Admitting Unavailabl e Pendjaskaran, Husam Mills Attending Unavailabl e Malys, Inez A Primary Care Unavailable Pendlemicki, Husam S Admitting Unavailabl e Pendjaskaran, Husam Mills Attending Unavailabl e Malys, Inez A Primary Care Unavailable Niall Angel Admitting Unavailable Niall Angel Attending Unavailable Malys, Inez A Primary Care Unavailable Malys, Inez A Unavailable Latesha Candelaria Unavailable Unavailable MALYS, INEZ A Primary Care Unavailable Medications Current Medications Medication Drug Class(es) Dates Sig (Normalized) Sig (Original) aspirin 81 mg chewable tablet (1 source) Platelet Aggregation Inhibitor, Nonsteroidal Anti-inflammatory Drug aspirin 81 mg oral tablet, dispersible Quantity: 0 Refills: 0 Ordered: 17-Apr-2019 Claire Zavala Generic Substitution Allowed baclofen 10 mg oral tablet (1 source) gamma-Aminobutyric Acid-ergic Agonist baclofen 10 mg oral tablet Quantity: 0 Refills: 0 Ordered: 29-Jul-2021 Isatu Mackenzie Generic Substitution Allowed doxycycline anhydrous 40 mg delayed release oral capsule (1 source) Tetracycline-class Drug take 1 capsule by mouth once daily in the morning doxycycline 40 mg oral delayed release capsule ; 1 cap(s) orally once a day (in the morning) Quantity: 0 Refills: 0 Ordered: 17-Apr-2019 Calire Zavala Status: Other Generic Substitution Allowed fluticasone / vilanterol (1 source) Corticosteroid, beta2-Adrenergic Agonist Breo Ellipta Quantity: 0 Refills: 0 Ordered: 29-Jul-2021 Isatu Mackenzie Generic Substitution Allowed gemfibrozil 600 mg oral tablet (1 source) Peroxisome Proliferator Receptor alpha Agonist take 1 tablet by mouth twice daily gemfibrozil 600 mg oral tablet ; 1 tab(s) orally 2 times a day Quantity: 0 Refills: 0 Ordered: 17-Apr-2019 Claire Zavala Generic Substitution Allowed glipiZIDE er 5 mg 24 hr extended release oral tablet (1 source) Sulfonylurea glipiZIDE 5 mg oral tablet, extended release Quantity: 0 Refills: 0 Ordered: 29-Jul-2021 Isatu Mackenzie Generic Substitution Allowed hydroCHLOROthiazide 12.5 mg / lisinopril 10 mg oral tablet (1 source) Thiazide Diuretic, Angiotensin Converting Enzyme Inhibitor take 1 tablet by mouth once daily lisinopril-hydroch lorothiazide 10 mg-12.5 mg oral tablet ; 1 tab(s) orally once a day Quantity: 0 Refills: 0 Ordered: 17-Apr-2019 Claire Zavala Generic Substitution Allowed levothyroxine sodium 0.075 mg oral tablet (1 source) l-Thyroxine take 1 tablet by mouth once daily levothyroxine 75 mcg (0.075 mg) oral tablet ; 1 tab(s) orally once a day Quantity: 0 Refills: 0 Ordered: 17-Apr-2019 Claire Zavala Generic Substitution Allowed 3 ml liraglutide 6 mg/ml pen injector (1 source) GLP-1 Receptor Agonist Victoza 18 mg/3 mL subcutaneous solution Quantity: 0 Refills: 0 Ordered: 17-Apr-2019 Claire Zavala Status: Other Generic Substitution Allowed mineral oil 0.14 mg/mg / petrolatum 0.749 mg/mg / phenylephrine hydrochloride 0.0025 mg/mg rectal ointment (1 source) alpha-1 Adrenergic Agonist Preparation H 14%-74.9%-0.25% rectal ointment ; 1 application rectal 2 times a day Quantity: 0 Refills: 0 Ordered: 17-Apr-2019 Claire Zavala Status: Other Generic Substitution Allowed pravastatin sodium 80 mg oral tablet (1 source) HMG-CoA Reductase Inhibitor take 1 tablet by mouth once daily pravastatin 80 mg oral tablet ; 1 tab(s) orally once a day Quantity: 0 Refills: 0 Ordered: 17-Apr-2019 Claire Zavala Generic Substitution Allowed pregabalin (1 source) Lyrica Quantity: 0 Refills: 0 Ordered: 29-Jul-2021 Isatu Mackenzie Generic Substitution Allowed semaglutide (1 source) Ozempic Quantity : 0 Refills: 0 Ordered: 29-Jul-2021 Gurdeep Isatu Generic Substitution Allowed topiramate 100 mg oral tablet (1 source) take 1 tablet by mouth once daily topiramate 100 mg oral tablet ; 1 tab(s) orally once a day Quantity: 0 Refills: 0 Ordered: 20-Jun-2019 Inez Butt Generic Substitution Allowed Completed/Discontinued Medications Medication Drug Class(es) Dates Sig (Normalized) Sig (Original) amoxicillin 875 mg oral tablet (1 source) Penicillin-class Antibacterial Start: 04-17-2019 End: 04-26-2019 take 1 tablet by mouth twice daily amoxicillin 875 mg oral tablet ; 1 tab(s) orally 2 times a day Quantity: 20 Refills: 0 Ordered: 17-Apr-2019 Niall Angel Start: 17-Apr-2019 End: 26-Apr-2019 Status: Other Generic Substitution Allowed Comments: Finish all this medication unless otherwise directed by prescriber. Problems Problem Classification Problem Date Documented Da te Episodic/Chronic Other nervous system disorders (3 sources) Carpal tunnel syndrome, right upper limb; Translations: [Carpal tunnel syndrome, right upper limb] Onset: 02-09-2017 Chronic Unclassified (2 sources) INFECTED PIERCING IN LT EAR 07-29-2021 Results Test Name Value Interpretation Reference Range Facil ity Vital Signs Date Time Vital Sign Value Performing Clinician Facility 07-29-2021 12:40-0500 Body height 175.2 cm Inez Jack Other Phone: [facility] 07-29-2021 12:40-0500 Body temperature 98.24 [degF] Inez Jack Other Phone: [facility] 07-29-2021 12:40-0500 Diastolic blood pressure 84 mm[Hg] Inez Jack Other Phone: [facility] 07-29-2021 12:40-0500 Heart rate 95 /min Inez Jack Other Phone: [facility] 07-29-2021 12:40-0500 Respiratory rate 16 /min Inez Jack Other Phone: [facility] 07-29-2021 12:40-0500 SaO2% (BldA) [Mass fraction] 97 % Ienz Jack Other Phone: [facility] 07-29-2021 12:40-0500 Systolic blood pressure 135 mm[Hg] Inez Jack Other Phone: [facility] Encounters Encounter Date Encounter Type Care Provider Facility Start: 03-31-2022 End: 03-31-2022 ambulatory INEZ JACK Facility:[facility] Start: 07-29-2021 End: 07-29-2021 Emergency department patient visit Latesha Bari [facility] Start: 06-22-2018 End: 06-22-2018 Patient encounter procedure Niall Angel Facility:[facility] Start: 05-01-2018 End: 05-01-2018 Patient encounter procedure Husam Lewismicki Facility:[facility] Start: 01-02-2018 End: 01-02-2018 Patient encounter procedure Husam Lewismicki Facility:[facility] Start: 08-22-2017 End: 08-22-2017 Patient encounter procedure Niall Angel Facility:[facility] Start: 02-09-2017 End: 03-16-2017 Ambulatory RAN [facility] Start: 12-29-2016 End: 12-29-2016 Ambulatory JETHRO [facility] Plan of Treatment Date Care Activity Detail Author H/O: hysterectomy History of hysterectomy [facility] History of cholecystectomy History of cho lecystectomy [facility] History of colonoscopy History of colonos copy [facility] History of tonsillectomy History of tonsi llectomy [facility] Immunizations Immunization Date Immunization Notes Care Provider Lavelle spann 07-29-2021 tetanus toxoid, redu lucas diphtheria toxoid, and acellular pertussis vaccine, adsorbed Inez Maliqra Other Phone: [facility] Payers Date Payer Category Payer Unknown [id number] 2017 Private Health Insurance 1960 Unknown [id number] 1960 Unknown [id number] 1960 Unknown [id number] 1960 Unknown [id number] Private Health Insurance [id number] Unknown [employer] [place] Social History Date Type Detail Facility [facility] Tobacco smoking consumption unknown [facility] Progress note 03-31-2022 Note Date & Type Note Facility 03-31-2022 Note HNO ID: [id number] Author: Kathy Mendez APRN.[facility] Service: ? Author Type: Nurse Practitioner Type: Progress Notes Filed: 03/31/2022 8:42 AM Note Text: CC: Patient presents with: Cough: Cough, congestion, sinus, diarrhea, GARCIA and ST x > 2 weeks Sore throat is only in the morning from drainage. HPI: Brittny Coronado is a 61 year old female who presents to the office with complaint of head congestion, cough, nonproductive, sore throat, and sinus symptoms for 2 weeks. Symptoms are worsening Associated symptoms includes cough, sinus pressure. Denies fever, nausea, vomiting , and diarrhea. Treatments tried include nothing so far. with no relief of symptoms. Sick contacts: unknown. History of asthma, frequent episodes of bronchitis, chronic bronchitis, bronchiectasis or COPD: No Smoker: No Seasonal/environmental allergies: No The ROS is otherwise negative. The patient's pmh, medications, allergies, and past visits are reviewed. PHYSICAL EXAM: BP 118/72 Pulse 69 Temp 36.2 ?C (97.2 ?F) (Tympanic) Resp 18 Wt 99.5 kg (219 lb 6.4 oz) SpO2 97% General appearance: alert, cooperative, pleasant, in no acute distress Head: Normocephalic Eyes: EOM's intact, conjunctiva pink and moist, no icterus, sclera white, non-injected Ears: Right ear: External ear/canal- Normal, TM - clear with good landmarks. Left ear: External ear/canal- Normal, TM - clear with good landmarks Oropharynx:moist without lesions, No erythema, exudates or tonsillar hypertrophy. Heart: Negative. RRR without obvious murmur, gallop, or rubs. No ectopy. Lungs: clear to auscultation, without rales or wheeze, good air exchange PAST MEDICAL HISTORY Diagnosis Date Chest pain, unspecified Diabetes mellitus without mention of complication Diabetes mellitus Other and unspecified hyperlipidemia Palpitations Seasonal allergic rhinitis Unspecified essential hypertension Unspecified hypothyroidism Hypothyroidism PAST SURGICAL HISTORY Procedure Laterality Date APPENDECTOMY 07/29/97 CARPAL TUNNEL 01/2017 Carpal tunnel surgery right wrist CHOLECYSTECTOMY 11/22/01 Cholecystectomy LIG/TRNSXJ FLP TUBE ABDL/VAG APPR UNI/BI Tubal ligation MAMMO MAMMOGRAM 2010 TONSILLECTOMY HX 1967 TOTAL ABDOMINAL HYSTERECT W/WO RMVL TUBE OVARY 07/29/97 Hysterectomy, MARCOS ALLERGIES Patient has no known allergies. MEDICATIONS montelukast (SINGULAIR) 10 mg tablet Take by mouth. lisinopriL-hydrochlorothiazide (PRINZIDE,ZESTORETIC) 10-12.5 mg per tablet Take 1 tablet by mouth once daily. pantoprazole (PROTONIX) 40 mg injection Inject intravenously DAILY (6 AM). topiramate (TOPAMAX) 50 mg tablet Take 50 mg by mouth twice daily. GEMFIBROZIL ORAL Take 600 mg by mouth twice daily. MAGNESIUM ORAL Take by mouth. aspirin, enteric coated (ASPIRIN, ENTERIC COATED) 81 mg EC tablet Take 81 mg by mouth once daily. pravastatin (PRAVACHOL) 80 mg tablet Take 80 mg by mouth once daily. fluticasone 50 mcg/actuation nasal spray Use 2 Sprays in each nostril once daily. Rinse mouth after use. levothyroxine 75 mcg ORAL tablet Take one tablet daily TRULICITY 4.5 mg/0.5 mL pen injector DARRYL MYERSTA 100-25 mcg/dose inhaler LANTUS SOLOSTAR U-100 INSULIN 100 unit/mL (3 mL) metFORMIN (GLUCOPHAGE) 1,000 mg tablet traZODone (DESYREL) 100 mg tablet doxycycline monohydrate 100 mg tablet Take 1 tablet by mouth twice daily for 5 days. nystatin (MYCOSTATIN) 100,000 unit/mL suspension Take 5 mL by mouth four times daily. 1tsp swish in mouth for several minutes, then swallow (or expectorate) 4 times daily until gone. VICTOZA 3-SAURAV 0.6 mg/0.1 mL (18 mg/3 mL) pnij (Patient not taking: Reported on 03/31/2022) CYANOCOBALAMIN, VITAMIN B-12, (VITAMIN B-12 ORAL) Take by mouth. (Patient not taking: Reported on 03/31/2022) folic acid 800 mcg tablet Take 400 mcg by mouth once daily. lisinopril (ZESTRIL, PRINIVIL) 5 mg tablet Take 5 mg by mouth once daily. (Patient not taking: Reported on 03/31/2022) buPROPion XL (WELLBUTRIN XL) 300 mg 24 hr tablet Take 300 mg by mouth once daily. exenatide microspheres (BYDUREON) 2 mg serr Inject subcutaneously. niacin ER (NIASPAN) 500 mg tablet Take 500 mg by mouth daily at bedtime. (Patient not taking: Reported on 03/31/2022) [place]-3 Fatty Acids-Vitamin E (FISH OIL) 1,000 mg ORAL Cap Take one tablet three times daily ECOTRIN 325 MG TAB Take one (1) tablet daily. FAMILY HISTORY Problem Relation Age of Onset Heart Father Diabetes Father Diabetes Mother Stroke Maternal Grandmother Cancer Maternal Grandfather Diabetes Paternal Grandmother Stroke Paternal Grandmother Social History Tobacco Use Smoking status: Former Packs/day: 0.50 Types: Cigarettes Smokeless tobacco: Never Tobacco comments: Quit 24 years ago Substance Use Topics Alcohol use: Yes Comment: Occassional Drug use: No ASSESSMENT/PLAN: 1. Sinus pressure - ICD9: 478.19, ICD10: J34.89 (primary diagnosis) (more content not included)... [facility] Summary Purpose Family History No Family History Records FoundNo Family History Records FoundNo Family History Records FoundNo Family History Records FoundNo Family History Records FoundNo Family History Records Found Advance Directives No Advanced Directives Records FoundNo Advanced Directives Records FoundNo Advanced Directives Records FoundNo Advanced Directives Records FoundNo Advanced Directives Records FoundNo Advanced Directives Records Found Additional Source Comments INFORMATION SOURCE (unrecogn ized section and content) DATE CREATED AUTHOR AUTHOR'S ORGANIZ ATION 06/30/2018 [facility] DATE CREATED AUTHOR AUTHOR'S ORGANIZ ATION 07/04/2019 [facility] DATE CREATED AUTHOR AUTHOR'S ORGANIZ ATION 10/30/2020 [employer] DATE CREATED AUTHOR AUTHOR'S ORGANIZ ATION 07/31/2021 [facility] DATE CREATED AUTHOR AUTHOR'S ORGANIZ ATION 04/01/2022 [facility] <item> Privacy Markings (unrecogniz ed section and content) Section Author: Selin Le PROHIBITION ON REDISCLOSURE OF CONFIDENTIAL INFORMATION This notice accompanies a disclosure of information concerning a client made to you with the consent of such client. FOR RECORDS PERTAINING TO PATIENTS WHO ARE OR HAVE BEEN ENROLLED IN A CHEMICAL DEPENDENCY/SUBSTANCEABUSE PROGRAM, SOME INFORMATION MAY BE OMITTED. This clinical summary was aggregated from multiple sources. Caution should be exercised in using it in the provision of clinical care. This summary normalizes information from multiple sources, and as a consequence, information in this document may materially change the coding, format and clinical context of patient data. In addition, data may be omitted in some cases. CLINICAL DECISIONS SHOULD BE BASED ON THE PRIMARY CLINICAL RECORDS. [employer] provides no warranty or guarantee of the accuracy or completeness of information in this document.
== END | disposition home or self-care (01) ==
LOC: MTLAB 08:58 → MTRAD 08:58
PROVIDERS: PCP Family Medicine; Referring Provider Internal Medicine Pulmonary Disease; Visit Provider Internal Medicine Pulmonary Disease
DX: R05.9 Cough, unspecified (principal)
CPT/HCPCS: 71046

== ENCOUNTER → 2023-08-28 | Outpatient (CLI) | payer OTHER, SELFPAY ==
--- NOTE | 2023-08-28 13:44 | RAD_ITS ---
INDICATION: PAIN EXAMINATION/TECHNIQUE: X-RAY - LEFT XR Knee Complete 4 Views or More 4 VIEWS COMPARISON: None. FINDINGS: BONES: No fracture demonstrated. Joint space narrowing at the patellofemoral joint. Spurring of the tibial spines. JOINTS: No dislocation. SOFT TISSUES: Soft tissue swelling medially. RAD/Knee 4 or More Views IMPRESSION: No evidence of fracture. Degenerative changes. Soft tissue swelling. Electronically Signed: Kaitlynn Mendoza MD at 7:09 EDT ,
== END | disposition home or self-care (01) ==
PROVIDERS: PCP Family Medicine; Referring Provider Family Medicine; Visit Provider Family Medicine
DX: M17.12 Unilateral primary osteoarthritis, left knee (principal)
CPT/HCPCS: 73564

== ENCOUNTER 2024-02-25 15:38 | Emergency (ER) | payer OTHER, SELFPAY ==
[2024-02-25 15:38] VITALS: BP 137/82; PULSE 78; RESP 16; TEMP 35.7; O2SAT 97; BMI 29.5
--- NOTE | 2024-02-25 16:40 | EDS_ITS ---
HPI History of Present Illness HPI Narrative: 63-year-old female history of diabetes and hypertension. States that she tripped today at work she works at [employer] in when she fell she did hit the garage floor or a tractor deck causing a laceration to her left knee. This occurred at 6:50 this morning. She worked the rest the day and came and have evaluated. Cannot remember her last tetanus shot. Denies other complaints. Chief Complaint: Lower Extremity Injury Informant: patient Occured/Mechanism Mechanism/Context: Yes injury and Yes blunt trauma Onset/Context/Timing Onset: Today and Hours Context: Sudden Onset Timing: Continuous Quality of Pain: Dull Current Severity: Mild Maximum Severity: Mild Narrative Narrative: 63-year-old female, Worker's Comp. injury, tripped or lost her balance at work fell on the floor injuring her left knee causing a laceration. This occurred about 10 hours ago. Tetanus will need to be updated. Tetanus Immunization: Unknown Prior similar symptoms: No Recent Illness/Hospitalization: No PFSH PFSH Medical History Wears partial dentures Wears glasses Post-menopausal Anxiety Thyroid disease Diabetes Arthritis Kidney stones High cholesterol Back pain Injury of head and neck Colitis Gastric reflux Former smoker Asthma Shortness of breath on exertion Leg cramps History of irregular heartbeat Normal stress echocardiogram Acute colitis Acute colitis of the left hemicolon Hypothyroidism Hyperlipidemia Type 2 diabetes mellitus Hypertension Home Medications ?Medication ?Instructions ?Recorded ?Last Taken ?Type cholecalciferol (vitamin D3) 50 3,000 unit PO QHS supplement 01/02/18 01/01/18 History mcg (2,000 unit) chewable tablet levothyroxine 75 mcg tablet 75 mcg PO DAILY thyroid 01/02/18 06/22/21 08:00 History pravastatin 80 mg tablet 80 mg PO QHS cholesterol 01/02/18 01/01/18 History gemfibrozil 600 mg tablet 600 mg PO BID 11/27/20 Unknown History liothyronine 5 mcg tablet 5 mcg PO DAILY 11/27/20 Unknown History lisinopril 10 1 tab PO DAILY 11/27/20 Unknown History mg-hydrochlorothiazide 12.5 mg tablet montelukast 10 mg tablet 10 tablet PO DAILY 11/27/20 Unknown History pantoprazole 40 mg tablet,delayed 40 mg PO DAILY 11/27/20 06/22/21 08:00 History release topiramate 100 mg tablet 100 mg PO DAILY 11/27/20 Unknown History baclofen 10 mg tablet 10 mg PO PRN PRN Pain 06/18/21 Unknown History cyanocobalamin (vitamin B-12) 1,000 mcg IM QMONTH 06/18/21 Unknown History 1,000 mcg/mL injection solution fluticasone furoate 100 1 inh inhalation DAILY 06/18/21 06/22/21 08:00 History mcg-vilanterol 25 mcg/dose inhalation powder (Breo Ellipta) pregabalin 150 mg capsule (Lyrica) 150 mg PO BID 06/18/21 Unknown History semaglutide 1 mg/dose (4 mg/3 mL) 1 mg subcut QWEEK 06/18/21 Unknown History subcutaneous pen injector (Ozempic) Allergy/AdvReac Type Severity Reaction Status Date / Time adhesive tape Allergy Rash Verified 02/25/24 15:41 Family History Mother Diabetes Father Diabetes Heart disease Hypertension Hypercholesterolemia Sister Diabetes Brother Diabetes Surgical History Hx of tonsillectomy history laser surgery veins right leg History of laparoscopic appendectomy history surgery on anal sphincter History of laparoscopic cholecystectomy History of abdominal hysterectomy Social History household members: spouse housing: house current occupational status: 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 Constitutional Constitutional ED: Denies fever(s) Eyes Eyes: Denies blurry vision Cardiovascular Cardiovascular: Denies chest pain Respiratory/Chest Respiratory/Chest: Reports cough Gastrointestinal Gastrointestinal: Denies abdominal pain Genitourinary Genitourinary ED: Denies dysuria Musculoskeletal Musculoskeletal: Denies arthralgias Integumentary Denies abscess Neurologic Neurologic: Denies headache(s) Psychiatric Psychiatric: Denies anxiety Endocrine Endocrinology: Denies polydipsia Hematologic/Lymphatic Hematologic/Lymphatic: Denies easy bleeding Allergic/Immunologic Allergic/Immunologic ED: Denies mouth swelling EXAM Physical Exam Narrative Exam Narrative: Well-appearing 63-year-old female. Sitting upright in bed. Vital signs are stable and afebrile. H EENT exam unremarkable atraumatic. Pupils round react light. Neck nontender. Back and spine nontender. Lungs clear. Heart regular rhythm rate about 80 no murmur. Chest wall ribs nontender. Abdomen soft nontender. Pelvic girdle intact. Both upper extremities 5/5 lead manufacturing engineer strength. Normal range of motion. Nontender no deformity. Right lower leg unremarkable. Left lower leg shows about a 3 inch laceration over the anterior aspect of her left knee. There is no hematoma. No effusion. She has normal flexion extension of the left hip, left knee and left ankle and foot. Normal dorsi plantarflexion. She can lift the leg off the bed and do normal extension to 180 degrees. There is no significant joint tenderness of the knee. Laceration will need repaired. No signs of infection or foreign body. Neurologically she is awake and alert. GCS of 15. Answering questions following commands. Const Vital Signs: 02/25/24 15:38 Temperature 96.2 F L Temperature Source Temporal Pulse Rate 78 Respiratory Rate 16 Blood Pressure 137/82 H Blood Pressure Mean 100 Pulse Ox 97 Oxygen Delivery Method Room Air Positive well nourished and well developed; Negative for cachectic, contractures or unkempt General Appearance ED: well developed and NAD; Negative for unkempt, cachectic or contractures Nutritional Appearance: Negative for cachectic HEENT Reports moist mucous membranes normocephalic and atraumatic; Negative for trauma or tenderness Eyes PERRL General Eye ED: Negative for other Neck full ROM and supple Thyroid: Negative for tender or other Chest Wall inspection of chest normal and palpation of chest normal Chest: Negative for other Resp normal respiratory effort, no retractions and clear to auscultation bilaterally Effort and Inspection: Negative for pain with movement Auscultation: Negative for rales, rhonchi, wheezes or diminished lung sounds Cardio regular rate, regular rhythm, S1 normal heart sound, S2 normal heart sound and no murmurs Rate: Negative for bradycardia or tachycardic Rhythm: Negative for abnormal rhythm Bruits: Negative for other GI non-tender, non-distended and no masses Inspection: Negative for abdominal distention Palpation: Negative for tender, guarding or rebound tenderness present Back/Spine no CVA tenderness General Back: Negative for CVA tenderness Cervical Spine: Negative for cervical spine tenderness Thoracic Spine / Upper Back: Negative for thoracic spinal tenderness Lumbar Spine / Lower Back: Negative for lumbar spinal tenderness Extremity normal to inspection and full ROM Extremity Narrative: Left anterior knee laceration about 3 inches. Normal flexion extension. Normal range of motion. Can lift the leg off the bed. Extend 180 degrees. No effusion. The laceration to be repaired. No bony deformity. Ligaments intact. General Extremety ED: Negative for cyanosis, edema or weight-bearing difficulty General Extremity: Negative for cyanosis, edema or weight-bearing difficulty Neuro oriented x3, CN's II-XII intact bilaterally and moves all extremities Sensorium / Orientation: alert, oriented to person, oriented to place and oriented to time; Negative for orientation impaired or confused Motor Exam: strength 5/5 throughout Psych mental status grossly normal Appearance: Negative for unkempt Skin no wounds Skin Narrative: Left knee laceration. Lesions: no lesions Rashes: no rashes Trauma: laceration MDM MDM MDM Narrative Medical decision making narrative: This is a 3-year-old female fell at work today about 9 to 10 hours ago. Causing a laceration in her left knee. She is been working on all day. She did not have any bony tenderness or deformity there is no significant swelling or effusion I do not think she needs x-rays. She and I discussed that she is comfortable not getting x-rayed. Tetanus will be updated. The left knee laceration will need to be locally anesthetized and washed and repaired. After a period of knee laceration I did check the ligaments of her knee and ACL PCL MCL and LCL appear to be intact. She has no effusion. She is comfortable no x-ray. History & Record Review Discussion w/independent historian: Patient Procedures Lacerations Left knee laceration repair:: Length: 4.5 in Depth: Sub Q Shape: Linear Laceration repair: Irrigated, Lidocaine, Local and Skin sutures Suture Information: Ethilon, Simple and 4-0 Comment: Left knee laceration. Normal range of motion. No bony tenderness or deformity. Local anesthetized with lidocaine. Cleaned with Shur- Clens. Washed with saline. Explored. Closed using 4-0 Ethilon suture. Proper hemostasis and wound closure obtained. Patient tolerated procedure well. Placed 13 simple interrupted 4-0 Ethilon sutures. Proper hemostasis no closure obtained. It was irregular. There was some skin missing. I discussed with the patient scarring. Discharge Plan Triage Chief Complaint: Lower Extremity Injury ED Provider: Jayjay Arias Dx/Rx/DC Orders Clinical Impression: Fall, Laceration of knee, left, Encounter related to worker's compensation claim Instructions: ED Laceration Extremity Prescriptions: No Action liothyronine 5 mcg tablet 5 mcg PO DAILY pantoprazole 40 mg tablet,delayed release (DR/EC) 40 mg PO DAILY gemfibrozil 600 mg tablet 600 mg PO BID lisinopril-hydrochlorothiazide 10-12.5 mg tablet 1 tab PO DAILY topiramate 100 mg tablet 100 mg PO DAILY montelukast 10 mg tablet 10 tablet PO DAILY levothyroxine 75 MCG tablet 75 mcg PO DAILY pravastatin 80 MG tablet 80 mg PO QHS cholecalciferol (vitamin D3) 2,000 UNIT tablet,chewable 3,000 unit PO QHS baclofen 10 mg tablet 10 mg PO PRN PRN (Reason: Pain) cyanocobalamin (vitamin B-12) 1,000 mcg/mL solution 1,000 mcg IM QMONTH Ozempic 1 mg/dose (4 mg/3 mL) Pen Injector 1 mg SUBCUT QWEEK pregabalin [Lyrica] 150 mg Capsule 150 mg PO BID Breo Ellipta 100-25 mcg/dose blister with device 1 inh INHALATION DAILY Primary Care Provider: Inez Jack Referrals: [facility] [Group of Physicians] - 10-14 Days suture removal Inez Jack DO [Primary Care Provider] - Activity Restrictions/Additional Instructions: Keep the area clean and dry. You can shower but dried off really well. Clean at least twice daily with soap and water or peroxide and water. Apply antibiotic ointment. Ice to decrease pain and swelling. Tylenol Motrin for pain and swelling. Watch for any signs of infection such as pus, redness, fever or streaks is seen return. Stitches out in 10 to 14 days and I would no longer to 14 days due to the location and type of laceration is. Start Print Language: Citizen Of [place] Disposition Disposition: Home, Self Care
[2024-02-25] MEDS: Diphth,Pertuss(Acell),Tet Vac 0.5 ML Vial IM (16:52)
[2024-02-25] MEDS: Ibuprofen 600 MG Tablet PO (18:00)
== END 2024-02-25 18:27 | disposition home or self-care (01) ==
PROVIDERS: Emergency Provider Emergency Medicine; PCP Family Medicine; Visit Provider Emergency Medicine
DX: S81.012A Laceration without foreign body, left knee, initial encounter (principal); E11.9 Type 2 diabetes mellitus without complications; W01.198A Fall on same level from slipping, tripping and stumbling with subsequent striking against other object, initial encounter; Y99.0 Civilian activity done for income or pay; Y92.830 Public park as the place of occurrence of the external cause; I10 Essential (primary) hypertension; E78.00 Pure hypercholesterolemia, unspecified; Z79.85 Long-term (current) use of injectable non-insulin antidiabetic drugs; Z79.899 Other long term (current) drug therapy; Z87.891 Personal history of nicotine dependence; Z23 Encounter for immunization
CPT/HCPCS: 12002; 90471; 90715; 99284

== ENCOUNTER 2024-03-08 11:32 | Emergency (ER) | payer OTHER, SELFPAY ==
[2024-03-08 11:33] VITALS: BP 136/74; PULSE 75; RESP 16; TEMP 36.3; O2SAT 98; BMI 29.9
--- NOTE | 2024-03-08 11:41 | CT_ITS ---
HISTORY: trauma. TECHNIQUE: CT of the chest was performed after the intravenous administration of 100 mL Isovue-300. Coronal and sagittal reformatted images. Individualized dose optimization techniques were used for this CT. 910 images. COMPARISON: XR 07/19/2023. FINDINGS: CENTRAL AIRWAYS: Patent. LUNGS: Clear. PLEURA: No pneumothorax or significant pleural effusion. HEART/PERICARDIUM: Heart within normal limits in size with coronary artery calcification. No pericardial effusion. AORTA/VESSELS: No thoracic aortic aneurysm or dissection flap. Atherosclerosis noted. No large central filling defect identified in the pulmonary arteries. MEDIASTINUM/ALISSA: No pathologically enlarged lymph nodes. OSSEOUS STRUCTURES: No acute displaced fracture. Thoracic spinal electrode again seen. UPPER ABDOMEN: Cholecystectomy. CT/Chest WITH Contrast IMPRESSION: No evidence of acute abnormality in the chest. Electronically Signed: Isatu Rios MD at 15:51 EDT ,
--- NOTE | 2024-03-08 13:09 | EKG12_ITS ---
Test Reason : CP Blood Pressure : / mmHG Vent. Rate : 076 BPM Atrial Rate : 076 BPM P-R Int : 156 ms QRS Dur : 088 ms QT Int : 398 ms P-R-T Axes : 003 034 035 degrees QTc Int : 447 ms Normal sinus rhythm with sinus arrhythmia Normal ECG Confirmed by MAURISIO CEE, ANKUR ([id number]), sound editor RALPH MCCOY ([id number]) on 03/12/2024 9:08:49 AM Referred By: Confirmed By:ANKUR FORDE MD
[2024-03-08 13:32] VITALS: BP 138/77; PULSE 64; RESP 15; TEMP 36.4; O2SAT 97
--- NOTE | 2024-03-08 14:15 | ED.VIS.CHEST ---
HPI History of Present Illness Chief Complaint: Chest Other Informant: patient Narrative Narrative: This 63-year-old female was seen here 2 weeks ago when she had a work related injury, falling against a deck and injuring her left lower leg. At the time she agrees that her chest did not bother her but the next day she was having bruising and pain that has been there ever since. She saw readeo today at [employer] and they sent her here with a message from the patient to to get a CAT scan and rule out sternum fracture and internal injuries. She denies any dyspnea. She denies any syncope or other symptoms systemically. Stitches were removed from her left lower leg laceration she states it is not hurting. She denies any other pain or injuries. [facility] Medical History Wears partial dentures Wears glasses Post-menopausal Anxiety Thyroid disease Diabetes Arthritis Kidney stones High cholesterol Back pain Injury of head and neck Colitis Gastric reflux Former smoker Asthma Shortness of breath on exertion Leg cramps History of irregular heartbeat Normal stress echocardiogram Acute colitis Acute colitis of the left hemicolon Hypothyroidism Hyperlipidemia Type 2 diabetes mellitus Hypertension Home Medications ?Medication ?Instructions ?Recorded ?Last Taken ?Type cholecalciferol (vitamin D3) 50 3,000 unit PO QHS supplement 01/02/18 01/01/18 History mcg (2,000 unit) chewable tablet levothyroxine 75 mcg tablet 75 mcg PO DAILY thyroid 01/02/18 06/22/21 08:00 History pravastatin 80 mg tablet 80 mg PO QHS cholesterol 01/02/18 01/01/18 History gemfibrozil 600 mg tablet 600 mg PO BID 11/27/20 Unknown History liothyronine 5 mcg tablet 5 mcg PO DAILY 11/27/20 Unknown History lisinopril 10 1 tab PO DAILY 11/27/20 Unknown History mg-hydrochlorothiazide 12.5 mg tablet montelukast 10 mg tablet 10 tablet PO DAILY 11/27/20 Unknown History pantoprazole 40 mg tablet,delayed 40 mg PO DAILY 11/27/20 06/22/21 08:00 History release topiramate 100 mg tablet 100 mg PO DAILY 11/27/20 Unknown History baclofen 10 mg tablet 10 mg PO PRN PRN Pain 06/18/21 Unknown History cyanocobalamin (vitamin B-12) 1,000 mcg IM QMONTH 06/18/21 Unknown History 1,000 mcg/mL injection solution fluticasone furoate 100 1 inh inhalation DAILY 06/18/21 06/22/21 08:00 History mcg-vilanterol 25 mcg/dose inhalation powder (Breo Ellipta) pregabalin 150 mg capsule (Lyrica) 150 mg PO BID 06/18/21 Unknown History semaglutide 1 mg/dose (4 mg/3 mL) 1 mg subcut QWEEK 06/18/21 Unknown History subcutaneous pen injector (Ozempic) Allergy/AdvReac Type Severity Reaction Status Date / Time adhesive tape Allergy Rash Verified 03/08/24 11:37 Family History Mother Diabetes Father Diabetes Heart disease Hypertension Hypercholesterolemia Sister Diabetes Brother Diabetes Surgical History Hx of tonsillectomy history laser surgery veins right leg History of laparoscopic appendectomy history surgery on anal sphincter History of laparoscopic cholecystectomy History of abdominal hysterectomy Social History household members: spouse housing: house current occupational status: 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 [employer] Smoking Status: Former smoker Tobacco: How many years used: 5 alcohol intake: current alcohol intake frequency: holidays/special occasions only substance use type: does not use what type of physical activity do you participate in: none seatbelt use: always do you feel safe at home: Yes ROS ROS ED Constitutional Constitutional ED: Denies chills or fever(s) Eyes Eyes: Denies change in vision or diplopia ENT ENT ED: Denies rhinorrhea or sore throat Cardiovascular Cardiovascular: Reports as per HPI and chest pain; Denies palpitations Respiratory/Chest Respiratory/Chest: Denies cough or dyspnea Gastrointestinal Gastrointestinal: Denies abdominal pain, diarrhea, nausea or vomiting Genitourinary Genitourinary ED: Denies dysuria or hematuria Musculoskeletal Musculoskeletal: Denies back pain or neck pain Integumentary Reports wounds; Denies abscess or rash Neurologic Neurologic: Denies headache(s), paresthesias or weakness Psychiatric Psychiatric: Denies anxiety or suicidal thoughts EXAM Physical Exam Const Vital Signs: 03/08/24 11:33 03/08/24 11:37 03/08/24 13:32 Temperature 97.3 F L 97.5 F L Temperature Source Oral Oral Pulse Rate 75 64 Respiratory Rate 16 15 Respiratory Effort Normal Non-Labored Blood Pressure 136/74 H 138/77 H Blood Pressure Mean 94 97 Pulse Ox 98 97 Oxygen Delivery Method Room Air Room Air 03/08/24 15:07 Temperature 98.1 F Temperature Source Oral Pulse Rate 68 Respiratory Rate 15 Respiratory Effort Blood Pressure 139/72 H Blood Pressure Mean 94 Pulse Ox 97 Oxygen Delivery Method Room Air Positive well nourished and well developed General Appearance ED: well developed and NAD HEENT Reports moist mucous membranes normocephalic and atraumatic Eyes PERRL and EOMs intact bilaterally Neck full ROM and supple Chest Wall Chest Narrative: There is ecchymosis in the left parasternal chest that is exquisitely tender including the sternum but less so, there is no crepitance or depression or deformity, there is involuntary guarding on behalf of the patient with palpation of this area limiting it. She is equal breath sounds bilaterally. The manubrium and the clavicles are all nontender. Subcostal abdominal exam is benign and nontender. Resp normal respiratory effort and clear to auscultation bilaterally Cardio regular rate, regular rhythm and no murmurs GI non-tender and non-distended Auscultation: normoactive bowel sounds Palpation: soft Back/Spine no CVA tenderness General Back: other FROM Extremity normal to inspection General Extremety ED: Negative for edema, pulses abnormal or tenderness General Extremity: Negative for edema or pulses abnormal Neuro oriented x3, CN's II-XII intact bilaterally and no sensory deficits noted Sensorium / Orientation: awake and alert Motor Exam: strength 5/5 throughout Skin no rashes or lesions noted and no wounds MDM MDM MDM Narrative Medical decision making narrative: As requested by the patient, CT of the chest with IV contrast obtained. Also although she does not have any symptoms of a pneumothorax for myocardial contusion, I obtained an EKG shows no ST segment deviation she has had no ectopy on the monitor or telemetry events, and her troponin is within normal limits, arguing against myocardial contusion. I reviewed the CT images and the report which I agree with. It is normal. Patient reassured discharged home to follow-up with [facility]. Lab Data Attestation: I reviewed the patient's lab results. Labs: Laboratory Results - last 24 hr 03/08/24 13:50 Sodium 139 Potassium 3.7 Chloride 109 H Carbon Dioxide 24.0 Anion Gap 6 BUN 23 H Creatinine 0.77 Estim Creat Clear Calc 90.29 Est GFR (MDRD) Af Amer 97 Est GFR (MDRD) Non-Af 81 BUN/Creatinine Ratio 29.9 H Glucose 191 H Calcium 9.3 Troponin I High Sens 7 Radiography Diagnostic Testing: Clinical Impression(s) from Imaging Studies Chest CT 03/08/24 11:41 IMPRESSION: No evidence of acute abnormality in the chest. Electronically Signed: Isatu Rios MD at 15:51 EDT Reading Location ID and State: [facility] / [place] Tel , Service support , Rhythm Strip Rhythm Strip: Sinus Rhythm Rate: 76 Ectopy: None EKG Initial EKG: Attestation: I personally reviewed and interpreted this EKG as follows: Interpretation: Sinus Rhythm and No Acute Injury Pattern Comments: nml ekg Discharge Plan Triage Chief Complaint: Chest Other ED Provider: Shreyas Nance Dx/Rx/DC Orders Clinical Impression: Chest wall contusion Instructions: ED Chest Wall Contusion Prescriptions: No Action liothyronine 5 mcg tablet 5 mcg PO DAILY pantoprazole 40 mg tablet,delayed release (DR/EC) 40 mg PO DAILY gemfibrozil 600 mg tablet 600 mg PO BID lisinopril-hydrochlorothiazide 10-12.5 mg tablet 1 tab PO DAILY topiramate 100 mg tablet 100 mg PO DAILY montelukast 10 mg tablet 10 tablet PO DAILY levothyroxine 75 MCG tablet 75 mcg PO DAILY pravastatin 80 MG tablet 80 mg PO QHS cholecalciferol (vitamin D3) 2,000 UNIT tablet,chewable 3,000 unit PO QHS baclofen 10 mg tablet 10 mg PO PRN PRN (Reason: Pain) cyanocobalamin (vitamin B-12) 1,000 mcg/mL solution 1,000 mcg IM QMONTH Ozempic 1 mg/dose (4 mg/3 mL) Pen Injector 1 mg SUBCUT QWEEK pregabalin [Lyrica] 150 mg Capsule 150 mg PO BID Breo Ellipta 100-25 mcg/dose blister with device 1 inh INHALATION DAILY Primary Care Provider: Inez Jack Referrals: [facility]] - Print Language: [place] Citizen Disposition Disposition: Home, Self Care
[2024-03-08 14:53] LABS: Anion Gap 6 (5-15); BUN 23 mg/dL (7-18); BUN/Creat Ratio 29.9 RATIO (10-20); Calcium,Total 9.3 mg/dL (8.5-10.1); Chloride 109 mmol/L (98-107); Creatinine, Serum 0.77 mg/dL (0.55-1.02); EST Glomerular Filtration Rate 81 mL/min (>60); Est Glom Filt Rate - Afr Amer 97 mL/min (>60); Estimated Creatinine Clearance 90.29 ml/min; Glucose 191 mg/dL (74-106); Potassium 3.7 mmol/L (3.5-5.1); Sodium Level 139 mmol/L (136-145); Troponin-I HS 7 pg/mL (3.0-54.0)
[2024-03-08 15:07] VITALS: BP 139/72; PULSE 68; RESP 15; TEMP 36.7; O2SAT 97
== END 2024-03-08 19:45 | disposition home or self-care (01) ==
PROVIDERS: Emergency Medicine; Emergency Provider Emergency Medicine; PCP Family Medicine; Visit Provider Emergency Medicine
DX: S20.212A Contusion of left front wall of thorax, initial encounter (principal); E11.9 Type 2 diabetes mellitus without complications; W22.09XA Striking against other stationary object, initial encounter; Y99.0 Civilian activity done for income or pay; I10 Essential (primary) hypertension; E78.00 Pure hypercholesterolemia, unspecified; Z79.85 Long-term (current) use of injectable non-insulin antidiabetic drugs; Z79.899 Other long term (current) drug therapy; Z87.891 Personal history of nicotine dependence
CPT/HCPCS: 71260; 80048; 84484; 93005; 99283; Q9967

== ENCOUNTER → 2024-06-17 | Outpatient (CLI) | payer OTHER, SELFPAY ==
--- NOTE | 2024-06-17 17:02 | RAD_ITS ---
INDICATION: COUGH EXAMINATION/TECHNIQUE: X-RAY - XR Chest 2 Views COMPARISON: July 19, 2023 FINDINGS: LINES/DEVICES: There are stable spinal electrodes again visualized terminating within the expected region of the mid thoracic spine. LUNGS: No consolidation, edema or effusion. No pneumothorax. MEDIASTINUM AND CARDIOVASCULAR STRUCTURES: Cardiac silhouette not enlarged. Central airways and mediastinal contour are unremarkable. BONES AND SOFT TISSUES: Unremarkable. RAD/Chest PA and Lateral IMPRESSION: No radiographic evidence of acute cardiopulmonary disease. Electronically Signed: Acacia Hyatt MD at 8:53 EST ,
== END | disposition home or self-care (01) ==
LOC: MTRAD 16:59
PROVIDERS: PCP Family Medicine; Referring Provider Internal Medicine Pulmonary Disease; Visit Provider Internal Medicine Pulmonary Disease
DX: R05.9 Cough, unspecified (principal)
CPT/HCPCS: 71046

== ENCOUNTER → 2024-08-09 | Outpatient (CLI) | payer OTHER, SELFPAY ==
[2024-08-09 12:47] LABS: Hemoglobin A1c 6.3 % (<=5.6)
== END | disposition home or self-care (01) ==
LOC: MTLAB 09:42
PROVIDERS: PCP Family Medicine; Referring Provider Family Medicine; Visit Provider Family Medicine
DX: E11.9 Type 2 diabetes mellitus without complications (principal)
CPT/HCPCS: 83036

== ENCOUNTER → 2024-09-18 | Outpatient (CLI) | payer OTHER, SELFPAY ==
--- NOTE | 2024-09-18 06:45 | EKG12_ITS ---
Test Reason : PRE OP Blood Pressure : */* mmHG Vent. Rate : 71 BPM Atrial Rate : 71 BPM P-R Int : 158 ms QRS Dur : 74 ms QT Int : 436 ms P-R-T Axes : 0 47 57 degrees QTcB Int : 473 ms Normal sinus rhythm with sinus arrhythmia Normal ECG Confirmed by Niall Eckert ([id number]), multimedia editor RALPH MCCOY ([id number]) on 09/18/2024 10:14:58 AM Referred By: Luis Antonio Taylor Confirmed By: Niall Eckert
[2024-09-18 07:30] LABS: Absolute Lymphocyte Count 1.17 X10^3/uL (0.83-4.51); Absolute Neutrophil Count 3.6 X10^3/uL (2.0-7.7); Basophil# 0.02 X10^3/uL; Basophil% 0.4 % (0-1); Eosinophil# 0.13 X10^3/uL; Eosinophils% 2.4 % (0-5); Hematocrit 40.7 % (37-47); Hemoglobin 13.2 g/dL (12.0-15.0); Lymphocyte # 1.17 X10^3/ul (0.83-4.51); Lymphocyte % 21.4 % (19-41); Mean Corp Hgb Conc 32.4 g/dL (32-36); Mean Corpuscular Hgb 30.8 pg (27.0-32.0); Mean Corpuscular Volume 94.9 fL (81-99); Mean Platelet Vol. 10.4 fl (6.2-12.0); Monocyte# 0.49 X10^3/uL; NRBC Flagged by Analyzer 0 % (0-5); Neutrophil # 3.64 X10^3/uL (2.7-7.7); Neutrophil % 66.4 % (47-70); Platelet Count 249 K/mm3 (150-450); RBC Distribution Width CV 13.6 % (11.6-14.6); RBC Distribution Width SD 47.7 fl (35.1-43.9); Red Blood Count 4.29 M/mm3 (4.2-5.4); White Blood Count 5.5 K/mm3 (4.4-11.0)
[2024-09-18 07:50] LABS: Albumin, Serum 4.3 g/dL (3.4-4.8); Anion Gap 10 (5-15); BUN 23 mg/dL (4-19); BUN/Creat Ratio 27.4 RATIO (10-20); Calcium,Total 9.7 mg/dL (7.6-11.0); Carbon Dioxide 25.4 mmol/L (21.0-32.0); Chloride 109 mmol/L (98-108); Creatinine, Serum 0.86 mg/dL (0.70-1.20); EST Glomerular Filtration Rate 76 (>60); Glucose 131 mg/dL (70-99); Potassium 4.8 mmol/L (3.3-5.1); Sodium Level 144 mmol/L (133-145)
== END | disposition home or self-care (01) ==
PROVIDERS: PCP Family Medicine; Referring Provider Orthopaedic Surgery; Visit Provider Orthopaedic Surgery
DX: Z01.810 Encounter for preprocedural cardiovascular examination (principal)
CPT/HCPCS: 36415; 80048; 82040; 85025; 93005

== ENCOUNTER → 2024-10-18 | Outpatient (CLI) | payer OTHER, SELFPAY ==
--- NOTE | 2024-10-18 07:30 | KNEE_PTH ---
PATIENT: BRITTNY WADE LOC: [facility] U#:[id number] AGE/SX: 64/F ROOM: RE10/18/[address]: Dr. Luis Antonio Taylor MD : 1960 BED: DIS: 10/18/2024 SPEC #: [id number] RECD: 10/18/24 15:09 STATUS: TIERA REHarpal #: [id number] JORGE: 10/18/24 07:[address]: Luis Antonio Taylor DEPT: SURGICAL PATHOLOGY RECD BY: Rgeina Moss ENTERED: 10/21/24 07:30 SP TYPE: TOTAL KNEE OTHR DR: Dr. Inez Jack DO Tissues: Knee, NOS Procedures: Decalcification bone/plaque Surgery Specimen Level III HEADER OPERATION: Left total knee arthroplasty PRE-OP DIAGNOSIS: Left knee grade 4 posttraumatic osteoarthritis TISSUE SUBMITTED: A- Left knee bone and soft tissue MICROSCOPIC DIAGNOSIS A. Left knee, total knee arthroplasty: * Articular bone, synovium, and fibroadipose tissue with reactive/degenerative changes. MICROSCOPIC DESCRIPTION Slides are reviewed. GROSS DESCRIPTION A. Received in formalin in a container labeled with the patient's name, date of , and left knee bone and soft tissue are multiple murrell and firm fragments of bone and soft tissue measuring 11.0 x 10.5 x 3.0 cm in aggregate. The specimen consists of, but is not limited to, medial/lateral condyle and tibial plateau. The resection margins are smooth and firm and the cortical surfaces are markedly pitted and granular with smooth eburnation. Sectioning of the bone and soft tissue reveals unremarkable surfaces. Park Maintenance Technician sections:A1. Soft tissueA2. Bone following decalcification. [facility] 10-21-2024 CPT:[id number]
== END | disposition home or self-care (01) ==
PROVIDERS: PCP Family Medicine; Visit Provider Orthopaedic Surgery
DX: M17.12 Unilateral primary osteoarthritis, left knee (principal)
CPT/HCPCS: 88304; 88305; 88311

== ENCOUNTER → 2024-12-25 | Outpatient (CLI) | payer OTHER, SELFPAY ==
--- NOTE | 2024-12-25 08:01 | BI_ITS ---
EXAM: SCRN MAMM (CAD)W/STEFANO BILAT DATE: 12/25/2024 CLINICAL HISTORY: F, Age 64 y/o , SCREENING TECHNIQUE: SCRN MAMM (CAD)W/STEFANO BILAT COMPARISON: Prior exam(s) dated 05/06/2020, 10/19/2018. FINDINGS: TISSUE DENSITY: The breasts are almost entirely fatty. Bilateral Breast Mammographic Findings: No significant masses, calcifications or other abnormalities are identified. BI/SCRN MAMM (CAD)W/STEFANO BILAT IMPRESSION: There is no mammographic evidence of malignancy. OVERALL FINAL ASSESSMENT BI-RADS 1: NEGATIVE. RECOMMENDATION: Routine annual follow-up in 1 Year A letter with findings and recommendations will be mailed to the patient. Reading Location: [id number]
== END | disposition home or self-care (01) ==
LOC: OPBI 08:00
PROVIDERS: PCP Family Medicine; Referring Provider Family Medicine; Visit Provider Family Medicine
DX: Z12.31 Encounter for screening mammogram for malignant neoplasm of breast (principal)
CPT/HCPCS: 77063; 77067

== ENCOUNTER → 2025-01-02 | Outpatient (CLI) | payer OTHER, SELFPAY ==
[2025-01-02 15:32] LABS: Hematocrit 42.0 % (37-47); Hemoglobin 13.2 g/dL (12.0-15.0); Immature Granulocytes Count 0.030 X10^3/uL (0.0-0.0); Mean Corp Hgb Conc 31.4 g/dL (32-36); Mean Corpuscular Volume 93.5 fL (81-99); Mean Platelet Vol. 11.1 fl (6.2-12.0); NRBC Flagged by Analyzer 0 % (0-5); Platelet Count 272 K/mm3 (150-450); RBC Distribution Width CV 13.1 % (11.6-14.6); RBC Distribution Width SD 44.9 fl (35.1-43.9); Red Blood Count 4.49 M/mm3 (4.2-5.4); White Blood Count 10.0 K/mm3 (4.4-11.0)
[2025-01-02 16:55] LABS: Anion Gap 15 (5-15); BUN 20 mg/dL (4-19); BUN/Creat Ratio 27.4 RATIO (10-20); Calcium,Total 9.7 mg/dL (7.6-11.0); Carbon Dioxide 22.0 mmol/L (21.0-32.0); Chloride 104 mmol/L (98-108); Glucose 110 mg/dL (70-99); Potassium 4.1 mmol/L (3.3-5.1)
== END | disposition home or self-care (01) ==
LOC: LABSPEC 11:58 → BFHLAB 12:01
PROVIDERS: PCP Family Medicine; Visit Provider Family Medicine
DX: Z01.818 Encounter for other preprocedural examination (principal); N39.0 Urinary tract infection, site not specified
CPT/HCPCS: 36415; 80048; 85025; 87077; 87086; 87088; 87186